=== PATIENT | male | born 1975 | race Two or more races ===

== ENCOUNTER 2024-05-20 22:00 | Inpatient (IN) | payer MEDICAID, SELFPAY ==
[2024-05-20 23:14] VITALS: PULSE 92; RESP 20; TEMP 36.7; O2SAT 95
[2024-05-20 23:20] VITALS: BMI 39.6
[2024-05-20 23:28] VITALS: BP 235/142
--- NOTE | 2024-05-20 23:33 | EKG_ITS ---
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1975 Requested By: Jose Angel Lebron Order Number: [id number] Reading MD: Jose Angel Lebron Measurements Intervals [place] Rate: 86 P: 17 [place]: 158 QRS: -40 QRSD: 100 T: 110 QT: 381 QTc: 457 Interpretive Statements SINUS RHYTHM LEFT AXIS DEVIATION [QRS AXIS < -30] LEFT VENTRICULAR HYPERTROPHY AND ST-T CHANGE [VOLTAGE CRITERIA PLUS ST/T ABNORMALITY] POSSIBLE SEPTAL MYOCARDIAL INFARCTION , POSSIBLY ACUTE [30 ms Q WAVE IN V1/V2] ACUTE [place] Compared to ECG 04/12/2019 23:42:48 Left-axis deviation now present Left ventricular hypertrophy now present ST (T wave) deviation now present Myocardial infarct finding now present T-wave abnormality no longer present /store/S0/[id number]
--- NOTE | 2024-05-20 23:43 | XR_ITS ---
Examination: PA chest single view TECHNIQUE: Upright PA chest single view Exam date and time: May 20, 2024, 11:51 PM Comparison June 03, 2018 INDICATIONS: Shortness of breath today, hypertension FINDINGS: [id number] CHF Mild enlargement cardiac contour. Prominent vascular congestion. Perihilar basilar edema. IMPRESSION: [id number] CHF
--- NOTE | 2024-05-20 23:43 | EDRME_ITS ---
Rapid Medical Screening Exam [facility] Arrival date/time: 05/20/24 22:00 48M with history of HTN and DM (does not take any of his meds) presents to ED with SOB starting around 6 PM today. Patient also has had a slight cough. Chief Complaint: Shortness of Breath/Dyspnea Vital signs: Vital Signs Temperature 98.0 F 05/20/24 23:14 Pulse Rate 92 05/20/24 23:14 Respiratory Rate 20 05/20/24 23:14 Pulse Oximetry (%) 95 05/20/24 23:14 Oxygen Delivery Method Room Air 05/20/24 23:14
--- NOTE | 2024-05-20 23:49 | PD.EDSOB ---
ED SOB =RME/HPI General Chief Complaint: Shortness of Breath/Dyspnea Stated Complaint: SOB AND COUGH Time Seen by Provider: 05/21/24 00:02 Arrival date/time: 05/20/24 22:00 RME / HPI RME / HPI Narrative: 05/20/24 22:00 48M with history of HTN and DM (does not take any of his meds) presents to ED with SOB starting around 6 PM today. Patient also has had a slight cough. -------- Dr. Gupta?s Main ED Evaluation: 48yo male with a history of HTN presents to the ED for a chief complaint of shortness of breath. Patient states he started having shortness of breath after he got home from work at 1800. He states his shortness of breath resolved after he arrived here to the ED. He denies any chest pain, extremity pain, fever, chills or any other associated symptoms. Patient has not taken his medications for over a year. No known allergies. Related Data Home Medications ?Medication ?Instructions ?Recorded ?Confirmed losartan 100 mg tablet 100 mg PO DAILY 06/05/18 06/05/18 Previous Rx's ?Medication ?Instructions ?Recorded amlodipine 5 mg tablet 10 mg (2 x 5 mg) PO QDAY #30 tabs 06/08/18 amoxicillin 875 mg-potassium 1 tab PO BID #14 tabs 06/08/18 clavulanate 125 mg tablet (Augmentin) aspirin 81 mg tablet,delayed 81 mg PO QDAY #30 tabs 06/08/18 release (Adult Low Dose Aspirin) atorvastatin 10 mg tablet 10 mg PO HS #30 tabs 06/08/18 hydrochlorothiazide 12.5 mg capsule 25 mg (2 x 12.5 mg) PO QDAY #30 06/08/18 caps losartan 25 mg tablet 100 mg (4 x 25 mg) PO QDAY #30 tabs 06/08/18 metformin 500 mg tablet 500 mg PO BIDAC #60 tabs 06/08/18 metoprolol tartrate 25 mg tablet 50 mg (2 x 25 mg) PO BID #60 tabs 06/08/18 Allergies Allergy/AdvReac Type Severity Reaction Status Date / Time No Known Allergies Allergy Verified 05/20/24 22:00 Review of Systems Review of Systems Systems Reviewed: All systems reviewed, normal except as documented Past Medical History Past Medical History NEUROLOGIC: Negative Seizures CARDIAC: Positive Cardiac Disorders and Hypertension; Negative Congestive Heart Failure RESPIRATORY: Negative Chronic Obstructive Pulmonary Disease (COPD) GENITOURINARY: Negative Renal Disease ENDOCRINE: Negative Diabetes Mellitus Type 1 or Diabetes Mellitus Type 2 OTHER HISTORY: Negative Blood Transfusions, Blood Transfusion Reaction or Anesthesia Reactions Family History FAMILY HISTORY: Positive Family Cardiac Disorders Social History SMOKING STATUS: Never smoker SUBSTANCE USE: does not use ED Exam Narrative Physical exam: GENERAL APPEARANCE: alert and oriented x 4, well-developed, well-nourished, no acute distress VITALS: All vitals were reviewed and the pulse ox is 95% on room air, which is normal according to my interpretation. HEENT: Normocephalic, atraumatic; pupils equal, round, reactive to light; EOMI; mucous membranes pink, moist; oropharynx clear NECK: Supple LUNGS: Coarse breath sounds bilaterally; no wheezes, no rales, no rhonchi HEART: Regular rate, regular rhythm; normal S1, S2; no murmurs ABDOMEN: non distended; normal BS; soft, no tenderness, no guarding, no rebound; no masses, no organomegaly, no hernia BACK: no CVA tenderness EXTREMITIES: atraumatic; 2+ pitting edema bilaterally up to his knees NEUROLOGIC: awake; alert and oriented x4; cranial nerves II-XII grossly intact; no focal sensory or motor deficits PSYCHIATRIC: appropriate mood and affect SKIN: warm, dry, normal color; no rashes Course Course Course Narrative: CXR is ordered for determining the etiology of shortness of breath. Quality Measures none Orders Category Date Time Status Bedside COVID-19 Antigen Test NOW Care 05/20/24 23:15 Active Bedside Influenza A&B Antigen Test NOW Care 05/20/24 23:15 Completed Waterproofer Q4H START 00 Care 05/20/24 23:45 Active EKG (ED ONLY) *Do not use* NOW Care 05/20/24 23:33 Completed EKG (ED ONLY) *Do not use* NOW Care 05/21/24 02:31 Completed Insert IV NOW Care 05/20/24 23:43 Active EKG (ED Only) Stat Exams 05/20/24 23:33 Draft EKG (ED Only) Stat Exams 05/21/24 02:31 Draft XR chest 1V portable Stat Exams 05/20/24 23:43 Completed B-Type Natriuretic Peptide Stat Lab 05/20/24 23:43 Completed CBC Stat Lab 05/20/24 23:43 Completed Comprehensive Metabolic Panel Stat Lab 05/20/24 23:43 Completed Drug Screen,Urine Stat Lab 05/21/24 00:32 Completed Magnesium Stat Lab 05/20/24 23:43 Completed Partial Thromboplastin Time Stat Lab 05/20/24 23:43 Completed Prothrombin Time with INR Stat Lab 05/20/24 23:43 Completed Troponin I Stat Lab 05/20/24 23:43 Completed Troponin I Stat Lab 05/21/24 02:32 Completed Aspirin Med 05/20/24 23:43 Discontinued 325 mg PO X1 ONE Aspirin Med 05/21/24 02:30 Discontinued 325 mg PO X1 ONE Furosemide Inj [Lasix Inj] Med 05/21/24 02:30 Discontinued 80 mg IVP X1 ONE Labetalol IV [Trandate IV] Med 05/21/24 00:03 Discontinued 20 mg IVP X1 ONE Nicardipine/Ns 20Mg Ivpb [Cardene Ivpb] Med 05/21/24 02:18 Active 20 mg in 200 ml IV 5 mg/hr Nitroglycerin [Nitrostat 1/150] Med 05/20/24 23:43 Active 0.4 mg SL Q5MIN PRN cefTRIAXone/D5w 1gm IV premix [Rocephin/D5w 1gm IV Med 05/21/24 03:57 Active premix] 1 gm in 50 ml IV X1 Vital Signs Vital signs: Vital Signs Temperature 98.0 F 05/20/24 23:14 Pulse Rate 92 05/20/24 23:14 Respiratory Rate 20 05/20/24 23:14 Pulse Oximetry (%) 95 05/20/24 23:14 Oxygen Delivery Method Room Air 05/20/24 23:14 Shortness of Breath / Dyspnea MDM Narrative MDM Narrative:: Scribe Attestation: 05/21/24 - Carol, Aliza Escobar am scribing for and in the presence of Dr. Gupta. Heart alert initiated at 2340. 2348: Spoke with Dr. Go from [facility], who reviewed the patient's EKG and does not feel the patient is having a STEMI. The patient does not need to be transferred at this 0225: Patient's blood pressure is 226/136. Nicardipine drip ordered. 0358: BP is 165/82 after Nicardipine drip was started (initially 5mg/hour and to increase in increments of 2.5mg, up to 15mg). Will consult an admission to the hospitalist. 0403: Discussed case with Dr. Kim from Hospitalist service regarding admission. Discussed patients ED course, exam findings, labs, and radiology results. The Hospitalist agrees to accept the patient for admission. Patient data External records reviewed:: [facility] previous records (Per chart review, patient has no relevant previous ED visits.) Clinical information provided by:: patient Social determinants that could affect healthcare access:: none Patient has the following chronic illnesses:: HTN How is presenting disease/condition affected by chronic disease/condition?: exacerbated by Evaluation data The following diagnostics were reviewed and interpreted by me:: lab results, radiology exam(s) and EKG tracing(s) Lab and/or radiology exams considered but not ordered:: none Interpretation Summary: Bedside COVID and Influenza are negative, WBC count is 11.1, PT and INR are normal, PTT is normal, Creatinine is elevated at 3.8, Glucose is 155, troponin is elevated 0.110, repeat troponin is 0.108, BNP is 803, UDS is negative, according to my interpretation. CXR shows cardiomegaly, cephalization, possible right lower lobe infiltrate, no bony abnormalities, according to my interpretation. EKG done at 2333, NSR, rate of 86, left axis deviation, no ectopy, QTc: 424, QRS: 100, LVH, no acute ischemia, according to my interpretation. Repeat EKG done at 0313, NSR, rate of 82, left axis deviation, LVH, Q waves in V1 and V2, ST depressions in lead I and avL, no STEMI, QTc: 444, according to my interpretation. Medications / Prescriptions Medications or Prescriptions considered but not ordered:: none Medication administrations:: Medication Administration History Nicardipine/Sodium Chloride (Cardene Ivpb) 20 mg in 200 mls @ 50 mls/hr IV .Q4H PRN; Protocol PRN Reason: PER PROTOCOL Stop: 06/20/24 02:17 Last Titration: 05/21/24 04:05 Dose: 12 mg/hr, 120 mls/hr Documented By: Titration: 05/21/24 04:00 Dose: 9.5 mg/hr, 95 mls/hr Documented By: Titration: 05/21/24 03:55 Dose: 7 mg/hr, 70 mls/hr Documented By: Titration: 05/21/24 03:50 Dose: 5.5 mg/hr, 55 mls/hr Documented By: Titration: 05/21/24 03:45 Dose: 3 mg/hr, 30 mls/hr Documented By: Titration: 05/21/24 03:40 Dose: 15 mg/hr, 150 mls/hr Documented By: Titration: 05/21/24 03:35 Dose: 15 mg/hr, 150 mls/hr Documented By: Titration: 05/21/24 03:30 Dose: 15 mg/hr, 150 mls/hr Documented By: Titration: 05/21/24 03:25 Dose: 15 mg/hr, 150 mls/hr Documented By: Titration: 05/21/24 03:20 Dose: 15 mg/hr, 150 mls/hr Documented By: Titration: 05/21/24 03:15 Dose: 15 mg/hr, 150 mls/hr Documented By: Titration: 05/21/24 03:10 Dose: 15 mg/hr, 150 mls/hr Documented By: Titration: 05/21/24 03:05 Dose: 15 mg/hr, 150 mls/hr Documented By: Titration: 05/21/24 03:00 Dose: 15 mg/hr, 150 mls/hr Documented By: Titration: 05/21/24 02:55 Dose: 15 mg/hr, 150 mls/hr Documented By: Titration: 05/21/24 02:50 Dose: 12.5 mg/hr, 125 mls/hr Documented By: Titration: 05/21/24 02:45 Dose: 10 mg/hr, 100 mls/hr Documented By: Titration: 05/21/24 02:40 Dose: 7.5 mg/hr, 75 mls/hr Documented By: Admin: 05/21/24 02:35 Dose: 5 mg/hr, 50 mls/hr Documented By: EF Ceftriaxone Sodium/Dextrose (Rocephin/D5w 1gm Iv Premix) 1 gm in 50 mls @ 100 mls/hr IV X1 ONE Stop: 05/21/24 04:26 Nitroglycerin (Nitroglycerin 0.4 Mg Subl Btl #25) 0.4 mg SL Q5MIN PRN PRN Reason: CHEST PAIN Discontinued Medications Aspirin (Aspirin 325 Mg Tablet) 325 mg PO X1 ONE Stop: 05/20/24 23:44 Last Admin: 05/21/24 00:51 Dose: 325 mg Documented By: EF Aspirin (Aspirin 325 Mg Tablet) 325 mg PO X1 ONE Stop: 05/21/24 02:31 Last Admin: 05/21/24 03:40 Dose: Not Given Documented By: AC Non-Admin Reason: Cancelled by Provider Furosemide (Furosemide Inj 10 Mg/Ml 4ml Vial) 80 mg IVP X1 ONE Stop: 05/21/24 02:31 Last Admin: 05/21/24 02:38 Dose: 80 mg Documented By: EF Labetalol HCl (Labetalol Inj 5 Mg/Ml Vial 20 Ml) 20 mg IVP X1 ONE Stop: 05/21/24 00:04 Last Admin: 05/21/24 00:51 Dose: 20 mg Documented By: EF see above Consultations Consultation(s) initiated? (list below): Yes Diagnosis Shortness of Breath Differential Diagnosis: other (STEMI, NSTEMI, CHF exacerbation, heart failure, renal failure) Most likely diagnosis given after review of the tests above:: see clinical impression below Admission Indicated Admission indicated?: indicated Admission Request Was there a request for admission?: Yes Admission Attestation Admission request attestation: Discussed case with [] from Hospitalist service regarding admission. Discussed patients ED course, exam findings, labs, and radiology results. The Hospitalist [agrees,declines] to accept the patient for admission. Disposition Plan Disposition Plan: Admit Critical Care Time Critical Care Time Critical Care Time: Yes Total Critical Care Time (min.): 75 Attestation: The high probability of sudden, clinically significant deterioration in the patient?s condition required the highest level of my preparedness to intervene urgently. The services I provided to this patient were to treat and/or prevent clinically significant deterioration. Services included the following: chart data review, reviewing nursing notes and/or old charts, documentation time, talent acquisition consultant collaboration regarding findings and treatment options, medication orders and management, direct patient care, vital sign assessments and ordering, interpreting and reviewing diagnostic studies and lab tests. Aggregate critical care time includes only time during which I was engaged in work directly related to the patient?s care, as described above, whether at bedside or elsewhere in the Emergency Department. It did not include time spent performing other reported procedures or the services of residents, students, nurses or physician assistants. Discharge Plan Prescriptions/Referrals Prescriptions/Med Rec: No Action losartan 100 mg Tablet 100 mg PO DAILY metformin 500 mg Tablet 500 mg PO BIDAC Qty: 60 0RF atorvastatin 10 mg Tablet 10 mg PO HS Qty: 30 0RF amlodipine 5 mg Tablet 10 mg PO QDAY Qty: 30 0RF losartan 25 mg Tablet 100 mg PO QDAY Qty: 30 0RF hydrochlorothiazide 12.5 mg Capsule 25 mg PO QDAY Qty: 30 0RF metoprolol tartrate 25 mg Tablet 50 mg PO BID Qty: 60 0RF aspirin [Adult Low Dose Aspirin] 81 mg tablet,delayed release (DR/EC) 81 mg PO QDAY Qty: 30 0RF amoxicillin-pot clavulanate [Augmentin] 875-125 mg tablet 1 tab PO BID Qty: 14 0RF Referrals: No Primary/Family,Physician [Primary Care Provider] - In 1 week Problem List Clinical Impression: Acute renal failure, Non-ST elevation ID (NSTEMI), CHF exacerbation, Pneumonia, Hypertensive crisis Patient/Caregiver Discharge Instructions Print Language: Malaysian
[2024-05-21] VITALS (90 sets, daily range): BP systolic 132–239; BP diastolic 79–150; PULSE 61–88; RESP 6–98; TEMP 36.8–36.9; O2SAT 92–99; BMI 38.5
[2024-05-21 00:26] LABS: Basophils # (Auto) 0.1 Thou/mm3 (0.0-0.2); Basophils % (Auto) 1 % (0-2.5); Eosinophils # (Auto) 0.2 Thou/mm3 (0.0-0.5); Eosinophils % (Auto) 2 % (0-10); Hematocrit 32.9 % (41.0-53.0); Hemoglobin 11.6 g/dL (13.5-16.0); Immature Granulocytes % (Auto) 0 % (0-0); Immature Granulocytes Auto 0.03 Thou/mm3 (0.00-0.00); Lymphocytes # (Auto) 1.4 Thou/mm3 (1.0-4.8); Lymphocytes % (Auto) 12 % (10-50); Mean Corpuscular HGB Conc 35.3 g/dl (31.0-37.0); Mean Corpuscular Hemoglobin 30.4 pg (25.0-35.0); Mean Corpuscular Volume 86 fL (80-100); Monocytes # (Auto) 0.5 Thou/mm3 (0.0-0.8); Monocytes % (Auto) 5 % (0-12); Neutrophils # (Auto) 8.9 Thou/mm3 (1.8-7.7); Neutrophils % (Auto) 80 % (37-80); Nucleated Red Blood Cell % 0 /100 WBC (0); Platelet Count 164 Thou/mm3 (140-440); RDW Standard Deviation 43.4 fL (35.1-43.9); Red Blood Count 3.82 Miln/mm3 (4.50-5.90); White Blood Count 11.1 Thou/mm3 (3.8-10.6)
[2024-05-21 00:50] LABS: Alanine Aminotransferase 11 U/L (10-49); Albumin, Serum 4.1 gm/dL (3.5-5.0); Albumin/Globulin Ratio 1.1 (1.2-2.2); Alkaline Phosphatase 101 U/L (46-116); Anion Gap 10 (7-16); Aspartate Amino Transferase 17 U/L (0-34); B-Type Natriuretic Peptide 803 pg/mL (0-100); BUN/Creatinine Ratio 11 Ratio (12-20); Bilirubin,Total 0.7 mg/dL (0.3-1.2); Blood Urea Nitrogen 43 mg/dL (9-23); Calcium 8.8 mg/dL (8.3-10.6); Calcium (Corrected) 8.8 mg/dL (8.5-10.1); Carbon Dioxide 24.2 mMol/L (20.0-31.0); Chloride 104 mMol/L (98-107); Creatinine (Component) 3.8 mg/dL (0.6-1.3); Estimated Creatinine Clearance 25.8 mL/min (>60); Globulin 3.6 gm/dL (2.3-3.5); Glucose 155 mg/dL (74-106); Magnesium 2.1 mg/dL (1.6-2.6); Osmolality,Calculated 289 (275-295); Potassium 3.6 mMol/L (3.4-5.1); Sodium 138 mMol/L (136-145); Total Protein 7.7 gm/dL (5.7-8.2); eGFR 19 See Note
[2024-05-21] MEDS: Aspirin 325 MG TABLET PO (00:51)
[2024-05-21] MEDS: LABETALOL INJ 5 MG/ML VIAL 20 ML 20 MG IVP (00:51)
[2024-05-21 00:52] LABS: Amphetamine/Methamp Scrn,U Negative (Negative); Barbiturate Screen,Urine Negative (Negative); Benzodiazepines Screen,Urine Negative (Negative); Benzoylecgonine Screen, Ur Negative (Negative); Fentanyl Screen,Urine Negative (Negative); Opiate Screen,Urine Negative (Negative); THC Screen,Urine Negative (Negative)
[2024-05-21 00:57] LABS: Partial Thromboplastin Time 27.6 Seconds (22.0-36.0); Prothrombin Time 10.9 Seconds (9.0-12.2)
--- NOTE | 2024-05-21 02:31 | EKG_ITS ---
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
[2024-05-21] MEDS: NICARDIPINE/NS 20MG IVPB 20 MG/200 ML BAG 50 MG IV (02:35)
[2024-05-21] MEDS: FUROSEMIDE INJ 10 MG/ML 4ML VIAL 80 MG IVP (02:38)
[2024-05-21 03:27] LABS: Troponin I 0.108 ng/mL (0.0-0.045)
[2024-05-21] MEDS: NICARDIPINE/NS 20MG IVPB 20 MG/200 ML BAG 150 MG IV (04:15)
--- NOTE | 2024-05-21 04:49 | PC.NURSE ---
PER DR BLOOM NICARDIPINE GOAL LESS THAN 180 SYSTOLIC
--- NOTE | 2024-05-21 04:59 | ECHO_ITS ---
Transthoracic Echo Report Ht (in): 64 Wt (lb): 231 Exam Location: Echo Lab Status: Emergency Honey Producer: YESSENIA Flores^^^^ Indications: Procedure Performed: BP: 164 / 103 HR: 82 Technical Quality: Fair MEASUREMENTS (Male / Female) Normal Values 2D ECHO LV Diastolic Diameter PLAX 4.5 cm 4.2 - 5.9 / 3.9 - 5.3 cm LV Systolic Diameter PLAX 3.1 cm IVS Diastolic Thickness 1.7 cm 0.6 - 1.0 / 0.6 - 0.9 cm LVPW Diastolic Thickness 1.5 cm 0.6 - 1.0 / 0.6 - 0.9 cm LV Relative Wall Thickness 0.7 LVOT Diameter 1.9 cm Aortic Root Diameter 4.1 cm LA Systolic Diameter LX 4.2 cm 3.0 - 4.0 / 2.7 - 3.8 cm LA Volume Index 70.6 cm?/m? 16 - 28 cm?/m? Ascending Aorta Diameter 3.7 cm DOPPLER AV Peak Velocity 175.3 cm/s AV Peak Gradient 12.3 mmHg AV Mean Gradient 7.5 mmHg AV Velocity Time Integral 32.5 cm LVOT Peak Velocity 126.0 cm/s LVOT Peak Gradient 6.4 mmHg LVOT Velocity Time Integral 29.8 cm LVOT Cardiac Index 3109.6 cm?/min?m? AV Area Cont Eq vti 2.6 cm? AV Area Cont Eq pk 2.0 cm? MV Peak Velocity 151.0 cm/s MV Peak Gradient 9.1 mmHg MV Mean Velocity 98.0 cm/s MV Mean Gradient 4.0 mmHg MV Area PHT 3.6 cm? MR Peak Velocity 432.5 cm/s MR Peak Gradient 74.8 mmHg Mitral E Point Velocity 115.0 cm/s Mitral A Point Velocity 54.9 cm/s Mitral E to A Ratio 2.1 LV E' Lateral Velocity 4.6 cm/s Mitral E to LV E' Lateral Ratio 24.8 LV E' Septal Velocity 6.5 cm/s Mitral E to LV E' Septal Ratio 17.7 TR Peak Velocity 267.3 cm/s TR Peak Gradient 28.6 mmHg PV Peak Velocity 118.0 cm/s PV Peak Gradient 5.6 mmHg RVOT Peak Velocity 61.3 cm/s FINDINGS Left Ventricle There is moderate concentric left ventricular hypertrophy. The left ventricular ejection fraction is normal, estimated at 60-65%. There is grade II diastolic dysfunction of the left ventricle (pseudonormal filling pattern). Right Ventricle The right ventricle is normal in size and systolic function. The estimated right ventricular systolic pressure, 32 mmHg. Left Atrium Severely increased left atrial volume 70.6 mL/m?. Right Atrium The right atrial cavity size is mildly increased. Atrial Septum The interatrial septum appears normal with no evidence of a shunt. Aorta The aorta is normal by two-dimensional, color flow and Doppler interrogation. Mitral Valve Mild mitral regurgitation. Mild mitral annular calcification. Aortic Valve Aortic valve sclerosis. Tricuspid Valve There is mild tricuspid valve regurgitation. Pulmonic Valve Trivial pulmonic valve regurgitation. Vessels The pulmonary artery appears normal. The inferior vena cava pulmonary and hepatic veins appear normal. Pericardium The pericardium is normal by two-dimensional imaging. There is no significant pericardial effusion. CONCLUSIONS Indication: CHF Normal zie and function with estimated at 60-65%. Moderate to severe concentric LVH. Diastolic dysfucntion stage I. Normal RV size and function. Estimated RVSP mildly elevated at 35-40 mm of 30. Severe LA dilation. Mild RA dilatation. Mild TR and mild MR. Mild mitral and mild aortic without stenosis. Nile Sutton (Electronically Signed) Final Date: 21 May 2024 21:35
--- NOTE | 2024-05-21 05:06 | PD.HHHP ---
Documentation for date of: 05/21/24 HPI - Hospitalist History of Present Illness History of present illness: Patient is a 48 years old male with past medical history of hypertension and diabetes who presented to the ED with complaint of shortness of breath. Patient was in his usual state of health until yesterday evening when he started having difficulty breathing and decided to visit the ED. Patient denies chest pain, cough, fever, chills. He does complain of orthopnea. Also states that he feels protrusion on his abdomen. Patient has not taken his medicine for hypertension for a long time, also has not seen a doctor for more than a year. Denies any sick contact. In the ED, he was found to have blood pressure of systolic up to 239 and diastolic up to 150. Rest of the vitals were within normal limits and he is saturating well on room air. Lab results are significant for WBC of 11.1, BUN/creatinine of 43/3.8, glucose 155, troponin 0.110 and BNP 803. Chest x-ray was done, which shows vascular congestion. EKG was done which shows mild elevation in ST on V3 and V4. Cardiology was contacted at [facility] by ED, who did not feel the patient is having an NSTEMI. Patient was started on labetalol 20 mg IV push in the ED without improvement in blood pressure. He was then started on nicardipine drip in the ED. Patient also received a dose of aspirin 325 and Lasix 80 mg IV. Past medical history: Hypertension, diabetes Past surgical history: None Social history: Does not smoke, does not use alcohol or illicit drugs. Review of Systems Review of Systems Systems Reviewed: All systems reviewed, normal except as documented Meds Home Medications and Allergies Home Medications ?Medication ?Instructions ?Recorded ?Confirmed ?Type losartan 100 mg tablet 100 mg PO DAILY 06/05/18 06/05/18 History Allergies Allergy/AdvReac Type Severity Reaction Status Date / Time No Known Allergies Allergy Verified 05/20/24 22:00 Exam Vital Signs Temp Pulse Resp BP Pulse Ox O2 Del Method 98.4 F 81 16 163/80 H 98 Room Air 05/21/24 02:15 05/21/24 04:15 05/21/24 02:15 05/21/24 04:15 05/21/24 02:15 05/21/24 02:15 Narrative GEN.: Alert and awake, comfortable, saturating well on room air HEENT: Atraumatic normocephalic, pupils equal and round, neck supple. CHEST: Bilateral crackles, no wheezing HEART: S1 and S2 sound regular, no murmur rub or gallop sound. ABDOMEN: Soft, distended, nontender, hard to appreciate ?bulge while bearing down near umbilicus EXTREMITY: 1+ bilateral pitting edema SKIN: No skin rash. NEUROLOGIC: Alert and oriented, answering questions appropriately and following commands, no focal neurological deficit, cranial nerves grossly intact Results - Hospitalist Labs Diagrams: 05/21/24 00:06 05/21/24 00:06 Labs: Short CBC 05/21/24 Range/Units 00:06 WBC 11.1 H (3.8-10.6) Thou/mm3 Hgb 11.6 L (13.5-16.0) g/dL Hct 32.9 L (41.0-53.0) % Plt Count 164 (140-440) Thou/mm3 BMP 05/21/24 00:06 Sodium 138 Potassium 3.6 Chloride 104 Carbon Dioxide 24.2 BUN 43 H Creatinine 3.8 H Glucose 155 H Calcium 8.8 Cardiac Enzymes 05/21/24 05/21/24 Range/Units 00:06 02:32 Troponin I 0.110 H* 0.108 H* (0.0-0.045) ng/mL Liver Function 05/21/24 Range/Units 00:06 Total Bilirubin 0.7 (0.3-1.2) mg/dL AST 17 (0-34) U/L ALT 11 (10-49) U/L Alkaline Phosphatase 101 (46-116) U/L Albumin 4.1 (3.5-5.0) gm/dL Assessment & Plan -Hospitalist Additional Assessment Patient is a 48 years old male with past medical history of diabetes and hypertension who presented to the ED with complaint of shortness of breath. Patient was found to have very high blood pressure, elevated troponin, DIANA, concerning for hypertensive emergency. Blood pressure was hard to control in the ED and patient was started on nicardipine drip. Will admit the patient in ICU for further management. INSTRUCTOR PHYSICAL EDUCATION No active problem CVS #Hypertensive emergency #CHF exacerbation #History of hypertension Patient has history of hypertension, not currently on medication Presented with very high blood pressure Has a BNP of 803 Received labetalol 20 mg IV in the ED Started on nicardipine drip We will monitor his blood pressure closely with goal of(180/105) Also started on Lasix 40 mg IV twice daily, patient received one-time dose of 80 mg IV in the ED Fluid restriction, low-sodium diet, strict ins and out, daily weight We will obtain echocardiography #Elevated troponin Likely type II in setting of hypertensive emergency Troponin peaked at 0.110 EKG did show mild elevation in AST but troponin has peaked and patient does not have chest pain Respi #CHF exacerbation Chest x-ray shows vascular congestion Patient on diuretics, saturating well on room air Nephrology #DIANA on CKD Patient's BUN/creatinine currently is 43/3.8, baseline appears to be around 1.2-1.3 Likely secondary to volume overload, severe hypertension, may have progression of CKD Avoid nephrotoxic drugs, monitor closely Endocrine #Diabetes mellitus Patient has glucose of 155 Started on insulin sliding scale We will obtain hemoglobin A1c Hematology #Leukocytosis Patient has mild leukocytosis of 11.1, likely reactive #Normocytic anemia Likely secondary to CKD, no evidence of active bleeding We will continue to monitor closely Diet: Cardiac diet, low-salt, low consistent carb CODE STATUS: Full code DVT prophylaxis: Lovenox SC Disposition: Admitted to ICU for hypertensive emergency requiring IV nicardipine drip Total critical care time spent on history and physical, lab reviews and plan: 40 minutes Pat Kim MD Quality Measures Quality Measures none
[2024-05-21 05:28] LABS: Basophils # (Auto) 0.1 Thou/mm3 (0.0-0.2); Basophils % (Auto) 1 % (0-2.5); Eosinophils # (Auto) 0.1 Thou/mm3 (0.0-0.5); Eosinophils % (Auto) 1 % (0-10); Hematocrit 32.3 % (41.0-53.0); Hemoglobin 11.5 g/dL (13.5-16.0); Immature Granulocytes % (Auto) 0 % (0-0); Immature Granulocytes Auto 0.03 Thou/mm3 (0.00-0.00); Lymphocytes # (Auto) 1.3 Thou/mm3 (1.0-4.8); Lymphocytes % (Auto) 13 % (10-50); Mean Corpuscular HGB Conc 35.6 g/dl (31.0-37.0); Mean Corpuscular Hemoglobin 30.5 pg (25.0-35.0); Mean Corpuscular Volume 86 fL (80-100); Monocytes # (Auto) 0.5 Thou/mm3 (0.0-0.8); Monocytes % (Auto) 5 % (0-12); Neutrophils # (Auto) 8.5 Thou/mm3 (1.8-7.7); Neutrophils % (Auto) 81 % (37-80); Nucleated Red Blood Cell % 0 /100 WBC (0); Platelet Count 163 Thou/mm3 (140-440); RDW Standard Deviation 43.6 fL (35.1-43.9); Red Blood Count 3.77 Miln/mm3 (4.50-5.90); White Blood Count 10.5 Thou/mm3 (3.8-10.6)
[2024-05-21 05:42] LABS: Glucose Estimated Average 131 mg/dL (80-131); Hemoglobin A1C 6.2 % Hgb (4.8-6.0)
[2024-05-21] MEDS: cefTRIAXone/D5w 1gm IV premix 1 GM/50 ML BAG IV (05:48)
[2024-05-21 05:54] LABS: Alanine Aminotransferase 10 U/L (10-49); Albumin, Serum 4.1 gm/dL (3.5-5.0); Albumin/Globulin Ratio 1.2 (1.2-2.2); Alkaline Phosphatase 97 U/L (46-116); Anion Gap 11 (7-16); Aspartate Amino Transferase 14 U/L (0-34); BUN/Creatinine Ratio 12 Ratio (12-20); Bilirubin,Total 0.7 mg/dL (0.3-1.2); Blood Urea Nitrogen 44 mg/dL (9-23); Calcium 8.8 mg/dL (8.3-10.6); Calcium (Corrected) 8.8 mg/dL (8.5-10.1); Carbon Dioxide 23.9 mMol/L (20.0-31.0); Chloride 103 mMol/L (98-107); Creatinine (Component) 3.8 mg/dL (0.6-1.3); Estimated Creatinine Clearance 25.8 mL/min (>60); Globulin 3.5 gm/dL (2.3-3.5); Glucose 191 mg/dL (74-106); Osmolality,Calculated 291 (275-295); Potassium 3.1 mMol/L (3.4-5.1); Procalcitonin 0.25 ng/ml (0.0-0.49); Sodium 138 mMol/L (136-145); Total Protein 7.6 gm/dL (5.7-8.2); eGFR 19 See Note
[2024-05-21] MEDS: NICARDIPINE/NS 20MG IVPB 20 MG/200 ML BAG 30 MG IV (06:28)
[2024-05-21 07:32] LABS: Cardiac Risk Estimate 5.4 RATIO (4.0-6.7); Cholesterol 233 mg/dL (132-200); HDL Cholesterol 43 mg/dL (40-60); LDL Cholesterol,Calculated 169 mg/dL (0-130); Triglycerides 107 mg/dL (30-150)
--- NOTE | 2024-05-21 08:02 | XR_ITS ---
Examination: Abdomen sonogram, Limited Date and time of exam: May 21, 2024 0823 hours INDICATIONS: Abdominal pain and distention this week Technique: Real-time reyes scale transabdominal sonographic images of the upper abdomen obtained. Findings: No cystic or solid mass noted No hernia defect IMPRESSION: Negative examination
--- NOTE | 2024-05-21 08:04 | ESPR_ITS ---
Documentation for date of: 05/21/24 Subjective Subjective Interval history: No acute events overnight. Patient is comfortable in bed with no complaints Exam Vital Signs Temp Pulse Resp BP Pulse Ox O2 Del Method 98.5 F 78 10 L 171/92 H 98 Room Air 05/21/24 06:30 05/21/24 06:30 05/21/24 06:30 05/21/24 06:30 05/21/24 06:30 05/21/24 02:15 Narrative Exam GEN.: Alert and awake, comfortable, saturating well on room air HEENT: Atraumatic normocephalic, pupils equal and round, neck supple. CHEST: Bilateral crackles, no wheezing HEART: S1 and S2 sound regular, no murmur rub or gallop sound. ABDOMEN: Soft, distended, mild tenderness to palpation periumbillical EXTREMITY: 1+ bilateral pitting edema SKIN: No skin rash. NEUROLOGIC: Alert and oriented, answering questions appropriately and following commands, no focal neurological deficit, cranial nerves grossly intact Objective Labs 05/25/24 05:18 05/25/24 05:18 Labs: Laboratory Results - last 24 hr 05/21/24 05/21/24 05/21/24 00:06 00:32 02:32 WBC 11.1 H RBC 3.82 L Hgb 11.6 L Hct 32.9 L MCV 86 MCH 30.4 MCHC 35.3 RDW Std Deviation 43.4 Plt Count 164 Neut % (Auto) 80 Lymph % (Auto) 12 [place] % (Auto) 5 Eos % (Auto) 2 Baso % (Auto) 1 Neut # (Auto) 8.9 H Lymph # (Auto) 1.4 [place] # (Auto) 0.5 Eos # (Auto) 0.2 Baso # (Auto) 0.1 Immature Gran # (Auto) 0.03 H Absolute Nucleated RBC 0.00 Immature Gran % 0 Nucleated RBC % 0 PT 10.9 INR 1.0 APTT 27.6 Sodium 138 Potassium 3.6 Chloride 104 Carbon Dioxide 24.2 Anion Gap 10 BUN 43 H Creatinine 3.8 H Estim Creat Clear Calc 25.8 L eGFR 19 L BUN/Creatinine Ratio 11 L Glucose [address] Glu mg/dL Hemoglobin A1c Calculated Osmolality 289 Calcium 8.8 Corrected Calcium 8.8 Magnesium 2.1 Total Bilirubin 0.7 AST 17 ALT 11 Alkaline Phosphatase 101 Troponin I 0.110 H* 0.108 H* B-Natriuretic Peptide 803 H* Total Protein 7.7 Albumin 4.1 Globulin 3.6 H Albumin/Globulin Ratio 1.1 L Triglycerides Cholesterol LDL Cholesterol, Calc HDL Cholesterol Cholesterol/HDL Ratio Procalcitonin Urine Opiates Screen Negative Urine Fentanyl Screen Negative Ur Barbiturates Screen Negative U Amphetamin/Meth Scrn Negative U Benzodiazepines Scrn Negative U Cocaine Metab Screen Negative U Marijuana (THC) Screen Negative 05/21/24 05:20 WBC 10.5 RBC 3.77 L Hgb 11.5 L Hct 32.3 L MCV 86 MCH 30.5 MCHC 35.6 RDW Std Deviation 43.6 Plt Count 163 Neut % (Auto) 81 H Lymph % (Auto) 13 [place] % (Auto) 5 Eos % (Auto) 1 Baso % (Auto) 1 Neut # (Auto) 8.5 H Lymph # (Auto) 1.3 [place] # (Auto) 0.5 Eos # (Auto) 0.1 Baso # (Auto) 0.1 Immature Gran # (Auto) 0.03 H Absolute Nucleated RBC 0.00 Immature Gran % 0 Nucleated RBC % 0 PT INR APTT Sodium 138 Potassium 3.1 L D Chloride 103 Carbon Dioxide 23.9 Anion Gap 11 BUN 44 H Creatinine 3.8 H Estim Creat Clear Calc 25.8 L eGFR 19 L BUN/Creatinine Ratio [address]ucose [address] Glu mg/dL 131 Hemoglobin A1c 6.2 H Calculated Osmolality 291 Calcium 8.8 Corrected Calcium 8.8 Magnesium Total Bilirubin 0.7 AST 14 ALT 10 Alkaline Phosphatase 97 Troponin I B-Natriuretic Peptide Total Protein 7.6 Albumin 4.1 Globulin 3.5 Albumin/Globulin Ratio 1.2 Triglycerides 107 Cholesterol 233 H LDL Cholesterol, Calc 169 H HDL Cholesterol 43 Cholesterol/HDL Ratio 5.4 Procalcitonin 0.25 Urine Opiates Screen Urine Fentanyl Screen Ur Barbiturates Screen U Amphetamin/Meth Scrn U Benzodiazepines Scrn U Cocaine Metab Screen U Marijuana (THC) Screen Quality Measures Quality Measures VTE prophylaxis Assessment & Plan Assessment Current Active Medications: Generic Name Dose Route Start Last Admin Trade Name Freq PRN Reason Stop Dose Admin Acetaminophen 650 mg 05/21/24 04:51 Acetaminophen 325 Mg Tablet PO 06/20/24 04:50 Q4HR PRN PAIN SCALE 1-3 (mild Al Hydrox/Mg Hydrox/Simethicone 30 ml 05/21/24 04:51 Mg Hyd/Al Hyd/Mary (Maalox Reg) Susp 30 Ml Udc PO 06/20/24 04:50 Q4HR PRN Heartburn or Upset Stomach Dextrose 25 ml 05/21/24 05:00 Dextrose 50%-Water Inj 50 Ml Syringe IV 06/20/24 04:59 Q15MIN PRN BG 50-70 responsive npo pt Dextrose 50 ml 05/21/24 05:00 Dextrose 50%-Water Inj 50 Ml Syringe IV 06/20/24 04:59 Q15MIN PRN BG <50 OR BG <70 & pt unresponsive Furosemide 40 mg 05/21/24 21:00 Furosemide Inj 10 Mg/Ml 4ml Vial IVP 06/20/24 20:59 BID RAFIA Glucagon 1 mg 05/21/24 05:00 Glucagon Inj 1 Mg Vial IM Q15MIN PRN BG <70, and no IV access Heparin Sodium (Porcine) 5,000 unit 05/21/24 07:45 Heparin Sod Inj 5000 Unit/Ml Vial SC 06/04/24 07:44 Q8HR RAFIA Nicardipine/Sodium Chloride 20 mg in 200 mls @ 50 mls/hr 05/21/24 06:22 05/21/24 06:28 Cardene Ivpb IV 06/20/24 02:17 3 mg/hr .Q4H PRN 30 mls/hr PER PROTOCOL Administration Protocol 5 MG/HR Potassium Chloride 20 meq in 100 mls @ 50 mls/hr 05/21/24 06:50 Kcl Ivpb IV 05/21/24 08:49 X1 ONE Insulin Human Lispro 0 unit 05/21/24 07:30 Insulin Lispro (Admelog) 1 Unit/0.01 Ml Unit SC 06/20/24 07:29 AC RAFIA Protocol Magnesium Hydroxide 30 ml 05/21/24 04:51 Milk Of Magnesia Susp 30 Ml Udc PO 06/20/24 04:50 QDAY PRN CONSTIPATION Nitroglycerin 0.4 mg 05/20/24 23:43 Nitroglycerin 0.4 Mg Subl Btl #25 SL Q5MIN PRN CHEST PAIN Pharmacy Consult 1 each 05/21/24 09:00 Pharmacy Renal Dose Adjustment 1 Ea XX 06/20/24 08:59 QDAY PRN PROTOCOL Plan Patient is a 48 years old male with past medical history of diabetes and hypertension who presented to the ED with complaint of shortness of breath. Patient was found to have very high blood pressure, elevated troponin, DIANA, concerning for hypertensive emergency. Blood pressure was hard to control in the ED and patient was started on nicardipine drip and admitted to ICU. 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 #History of hypertension #Hypertensive emergency Patient has history of hypertension, noncompliant with medication Presented with BP 239/150 - Nicardipine gtt with goal <160 - Restart home amlodipine 10mg qd and metoprolol 50mg BID #CHF exacerbation BNP 803 We will monitor his blood pressure closely with goal of systolic <160 Lasix 40mg IV BID with good urine output (per patient, no output charted) Fluid restriction, low-sodium diet, strict ins and out, daily weight We will obtain echocardiography #Elevated troponin Likely type II in setting of hypertensive emergency Troponin peaked at 0.110, cardiology at [facility] consulted overnight for minor ST elevations in anterior leads, nonconcerning for myocardial infarction Respiratory #CHF exacerbation Chest x-ray shows vascular congestion, saturating well on RA -See above plan for exacerbation Nephrology #DIANA on CKD Patient's BUN/creatinine currently is 43/3.8, unknown baseline Will attempt to obtain outside records to see patient's baseline renal function Likely secondary to volume overload, severe hypertension, may have progression of CKD Avoid nephrotoxic drugs, monitor closely Endocrine #Diabetes mellitus Glucose within range Started on insulin sliding scale We will obtain hemoglobin A1c Patient not a good candidate for Metformin outpatient due to renal status Hematology #Leukocytosis Patient has mild leukocytosis of 11.5, likely reactive #Normocytic anemia Likely secondary to CKD, no evidence of active bleeding We will continue to monitor closely Diet: Cardiac diet, low-salt, low consistent carb CODE STATUS: Full code DVT prophylaxis: Lovenox SC, switched to Heparin SC in setting of DIANA Disposition: ICU for nicardipine gtt Attending Provider Attestation/Addendum Patient seen and examined with the above resident, Herb Gar DO. I agree with the findings, assessment, and plan of care as documented except for any differences below. Patient admitted with hypertensive emergency/ accelerated hypertension wit acute pulmonary edema. Resolved respiratory failure with no further oxygen requirement. Patient doing well now with resumption of home regimen. On discussion with the patient, he admits to not taking his medications regularly. 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 We did stop his metformin due to the renal dysfunction. If able to wean off the nicardipine gtt with PO medication resumption, will plan on transfer to medicine later today. Total critical care time: I personally spent 35 minutes for review of physiologic parameters, directing plan of care, and counseling patient at the bedside. This is exclusive of time spent teaching housestaff or performing any separate billable procedures. Patient continued to require critical care services for congestive heart failure, accelerated hypertension, and acute renal failure. He remained at significant risk of further morbidity and mortality warranting close monitoring and care only available in the ICU.
[2024-05-21] MEDS: POTASSIUM CHLORIDE 20 mEq TABCR 40 MEQ PO (08:28)
[2024-05-21] MEDS: HEPARIN SOD INJ 5000 UNIT/ML VIAL SC ×3 (08:28→21:33)
[2024-05-21] MEDS: INSULIN LISPRO (AdmeLOG) 1 UNIT/0.01 ML UNIT SC (08:32)
[2024-05-21] MEDS: POTASSIUM CHL 10 mEq IVPB 100 ML 100 MEQ IV ×2 (08:37→10:22)
[2024-05-21] MEDS: NICARDIPINE/NS 20MG IVPB 20 MG/200 ML BAG 55 MG IV (10:51)
[2024-05-21 11:42] LABS: Troponin I 0.149 ng/mL (0.0-0.045)
[2024-05-21] MEDS: amLODIPine BESYLATE 5 MG TABLET 10 MG PO (12:41)
[2024-05-21] MEDS: METOPROLOL TARTRATE 25 MG TABLET 50 MG PO ×2 (12:42→20:24)
--- NOTE | 2024-05-21 12:52 | PC.SS ---
POWER PLANT TECHNICIAN conducted phone contact with patient?s daughter, Muriel Turner; to conduct initial assessment and to discuss discharge planning on behalf of the patient.? Patient resides at home with spouse, Dorcas Matthews .? Patient is employed.? Patient does not utilize DME to assist with ambulation.? Patient does not utilize home oxygen.? Patient possesses ability to complete ADL?s independently.? Patient?s surrogate medical decision maker is spouse, Dorcas Matthews.? Patient utilizes [facility] ([facility]) for PCP services.? Patient possesses a history of diabetes.? Discharge plan is for the patient to return home at the time of discharge.? Patient?s family will provide transportation on behalf of the patient.? No further discharge needs identified by the patient?s family.? No further intervention required at this time, family welfare social work professor will be available to address any further concerns.? Next of Kin: Dorcas Matthews D/C Plan: Home
[2024-05-21] MEDS: NICARDIPINE/NS 20MG IVPB 20 MG/200 ML BAG 80 MG IV (13:50)
[2024-05-21] MEDS: NICARDIPINE/NS 20MG IVPB 20 MG/200 ML BAG 45 MG IV (16:09)
[2024-05-21] MEDS: hydrALAZINE INJ 20 MG/ML VIAL 10 MG IV (18:21)
--- NOTE | 2024-05-21 19:22 | PD.RESPRO ---
Documentation for date of: 05/21/24 Subjective Subjective Interval history: ICU downgrade. Patient denies shortness of breath or chest pain. Patient stated taking his hypertensive medication over 8 months as he felt his blood pressure was consistently in the 200s despite 3 medications on board. Patient is nonadherent with his diabetic medication initially placed on metformin in the outpatient setting. Patient stated he sometimes has lower pedal edema after sitting for long periods of time. 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 Patient was initially admitted overnight to ICU secondary hypertensive emergency and placed on a Cardene pain drop which was DC'd at approximately 4:30 PM on 05/21/2024. Patient was started on amlodipine and metoprolol. DIANA versus CKD suspected. CHF being ruled out, echo pending Exam Vital Signs Temp Pulse Resp BP Pulse Ox O2 Del Method 98.5 F 69 10 L 151/95 H 99 Room Air 05/21/24 12:00 05/21/24 18:30 05/21/24 18:30 05/21/24 18:30 05/21/24 18:30 05/21/24 02:15 Narrative Exam General Appearance: Alert & Oriented X3, well-nourished male who is lying in bed in no acute distress HEENT: Skull symmetrical and atraumatic. Conjunctivae pin and moist. Pupils equal, round, reactive to light and accommodation (PERRL). External ear without lesion or discharge. Straight, nares patient, mucosa pink, no discharge. No thyroid nodule appreciated. No cervical lymphadenopathy. Cardio: Normal Rate and Rhythm with S1 and S2 heart sounds. No murmurs or extra heart sounds auscultated. No bruits on carotid auscultation. No peripheral edema or cyanosis. Lungs: Symmetric with good expansion. Chest and back non-tender. Breath sounds vesicular, no crackles appreciated. Abdomen: Non-tender, Non-distended, Normal Reactive Bowel Sounds Neuro: Alert, cooperative, oriented to person, place, and time. Speech clear. CN grossly intact. Upper motor strength 5/5 and Lower motor strength 5/5. Sensation intact. Objective Labs 05/22/24 05:54 05/22/24 05:54 Labs: Laboratory Results - last 24 hr 05/21/24 05/21/24 05/21/24 00:06 00:32 02:32 WBC 11.1 H RBC 3.82 L Hgb 11.6 L Hct 32.9 L MCV 86 MCH 30.4 MCHC 35.3 RDW Std Deviation 43.4 Plt Count 164 Neut % (Auto) 80 Lymph % (Auto) 12 [place] % (Auto) 5 Eos % (Auto) 2 Baso % (Auto) 1 Neut # (Auto) 8.9 H Lymph # (Auto) 1.4 [place] # (Auto) 0.5 Eos # (Auto) 0.2 Baso # (Auto) 0.1 Immature Gran # (Auto) 0.03 H Absolute Nucleated RBC 0.00 Immature Gran % 0 Nucleated RBC % 0 PT 10.9 INR 1.0 APTT 27.6 Sodium 138 Potassium 3.6 Chloride 104 Carbon Dioxide 24.2 Anion Gap 10 BUN 43 H Creatinine 3.8 H Estim Creat Clear Calc 25.8 L eGFR 19 L BUN/Creatinine Ratio 11 L Glucose [address] Glu mg/dL Hemoglobin A1c Calculated Osmolality 289 Calcium 8.8 Corrected Calcium 8.8 Magnesium 2.1 Total Bilirubin 0.7 AST 17 ALT 11 Alkaline Phosphatase 101 Troponin I 0.110 H* 0.108 H* B-Natriuretic Peptide 803 H* Total Protein 7.7 Albumin 4.1 Globulin 3.6 H Albumin/Globulin Ratio 1.1 L Triglycerides Cholesterol LDL Cholesterol, Calc HDL Cholesterol Cholesterol/HDL Ratio Procalcitonin Urine Opiates Screen Negative Urine Fentanyl Screen Negative Ur Barbiturates Screen Negative U Amphetamin/Meth Scrn Negative U Benzodiazepines Scrn Negative U Cocaine Metab Screen Negative U Marijuana (THC) Screen Negative 05/21/24 05/21/24 05:20 11:10 WBC 10.5 RBC 3.77 L Hgb 11.5 L Hct 32.3 L MCV 86 MCH 30.5 MCHC 35.6 RDW Std Deviation 43.6 Plt Count 163 Neut % (Auto) 81 H Lymph % (Auto) 13 [place] % (Auto) 5 Eos % (Auto) 1 Baso % (Auto) 1 Neut # (Auto) 8.5 H Lymph # (Auto) 1.3 [place] # (Auto) 0.5 Eos # (Auto) 0.1 Baso # (Auto) 0.1 Immature Gran # (Auto) 0.03 H Absolute Nucleated RBC 0.00 Immature Gran % 0 Nucleated RBC % 0 PT INR APTT Sodium 138 Potassium 3.1 L D Chloride 103 Carbon Dioxide 23.9 Anion Gap 11 BUN 44 H Creatinine 3.8 H Estim Creat Clear Calc 25.8 L eGFR 19 L BUN/Creatinine Ratio 12 [address]ucose [address] Glu mg/dL 131 Hemoglobin A1c 6.2 H Calculated Osmolality 291 Calcium 8.8 Corrected Calcium 8.8 Magnesium Total Bilirubin 0.7 AST 14 ALT 10 Alkaline Phosphatase 97 Troponin I 0.149 H* B-Natriuretic Peptide Total Protein 7.6 Albumin 4.1 Globulin 3.5 Albumin/Globulin Ratio 1.2 Triglycerides 107 Cholesterol 233 H LDL Cholesterol, Calc 169 H HDL Cholesterol 43 Cholesterol/HDL Ratio 5.4 Procalcitonin 0.25 Urine Opiates Screen Urine Fentanyl Screen Ur Barbiturates Screen U Amphetamin/Meth Scrn U Benzodiazepines Scrn U Cocaine Metab Screen U Marijuana (THC) Screen Quality Measures Quality Measures VTE prophylaxis Assessment & Plan Assessment Current Active Medications: Generic Name Dose Route Start Last Admin Trade Name Freq PRN Reason Stop Dose Admin Acetaminophen 650 mg 05/21/24 04:51 Acetaminophen 325 Mg Tablet PO 06/20/24 04:50 Q4HR PRN PAIN SCALE 1-3 (mild Al Hydrox/Mg Hydrox/Simethicone 30 ml 05/21/24 04:51 Mg Hyd/Al Hyd/Mary (Maalox Reg) Susp 30 Ml Udc PO 06/20/24 04:50 Q4HR PRN Heartburn or Upset Stomach Amlodipine Besylate 10 mg 05/21/24 11:00 05/21/24 12:41 Amlodipine Besylate 5 Mg Tablet PO 06/20/24 10:59 10 mg QDAY RAFIA Administration Dextrose 25 ml 05/21/24 05:00 Dextrose 50%-Water Inj 50 Ml Syringe IV 06/20/24 04:59 Q15MIN PRN BG 50-70 responsive npo pt Dextrose 50 ml 05/21/24 05:00 Dextrose 50%-Water Inj 50 Ml Syringe IV 06/20/24 04:59 Q15MIN PRN BG <50 OR BG <70 & pt unresponsive Furosemide 40 mg 05/21/24 21:00 Furosemide Inj 10 Mg/Ml 4ml Vial IVP 06/20/24 20:59 BID RAFIA Glucagon 1 mg 05/21/24 05:00 Glucagon Inj 1 Mg Vial IM Q15MIN PRN BG <70, and no IV access Heparin Sodium (Porcine) 5,000 unit 05/21/24 07:45 05/21/24 13:51 Heparin Sod Inj 5000 Unit/Ml Vial SC 06/04/24 07:44 5,000 unit Q8HR RAFIA Administration Hydralazine HCl 10 mg 05/21/24 17:34 05/21/24 18:21 Hydralazine Inj 20 Mg/Ml Vial IV 06/20/24 17:44 10 mg Q8H PRN Administration HTN Nicardipine/Sodium Chloride 20 mg in 200 mls @ 50 mls/hr 05/21/24 10:49 05/21/24 16:35 Cardene Ivpb IV 06/20/24 02:17 0 mg/hr .Q4H PRN 0 mls/hr PER PROTOCOL Titration Protocol 5 MG/HR Insulin Human Lispro 0 unit 05/21/24 07:30 05/21/24 17:55 Insulin Lispro (Admelog) 1 Unit/0.01 Ml Unit SC 06/20/24 07:29 Not Given AC RAFIA Protocol Magnesium Hydroxide 30 ml 05/21/24 04:51 Milk Of Magnesia Susp 30 Ml Udc PO 06/20/24 04:50 QDAY PRN CONSTIPATION Metoprolol Tartrate 50 mg 05/21/24 11:00 05/21/24 12:42 Metoprolol Tartrate 25 Mg Tablet PO 06/20/24 10:59 50 mg BID RAFIA Administration Nitroglycerin 0.4 mg 05/20/24 23:43 Nitroglycerin 0.4 Mg Subl Btl #25 SL Q5MIN PRN CHEST PAIN Pharmacy Consult 1 each 05/21/24 09:00 Pharmacy Renal Dose Adjustment 1 Ea XX 06/20/24 08:59 QDAY PRN PROTOCOL Plan Patient is a 48 years old male with past medical history of hypertension and diabetes non adherant to medication who was initially admitted directly to ICU for hypertensive emergency and placed nicardipine drip. #New onset of Congestive Heart Failure Etiology: CHF likely secondary to cardiomyopathy from long standing HTN. BNP 803 DDx: less likely secondary to infectious cause vs SD Lipid Panel: Cholesterol 233 Triglycerides 107, LDL 169, HDL 43 NYHA Class: II ASCVD 21.1%-high intensity Plan: -Lasix 40 mg IV Qday -Echo -Metoprolol tartrate 50 mg BID -Add Aspirin 81 mg Qday AM tomorrow -Atorvastatin-resume tomorrow -Work toward GDMT -K>4 and Mg >2 -SpO <90%, support PRN -Daily Weights, Strict Ins and Outs, Fluid Striction (1500), Sodium Restriction 2 grams per day (AM) #Troponemia, likely NSTEMI type II demand ischemia likely secondary to demain ischemia given hypertensive emergency and CHF exacerbation. ST elvation noted on V3-V4 but no reciprocal T waves notes, deep QRS amplitude noted secondary to hypertrophy at left ventricles likely. Plan -Montior troponin levels -EKG if chest pain develops or troponin worsens. #Hypertension Long standing history of hypertension that required 3 anit-hypertensive medication but remained in 200s for systolic BP. Patient only continued with medication for eight months, then being non-adherant. Plan: -Amlodipine 10 mg PO Qday -Hydralazine 10 mg Q8HR PRN -Given DIANA vs CKD work towards LINETTE/ARBs -Consider renal u/s #Diabetes Mellitus Type II, non insulin dependent Patient usually does not check blood glucose at home. Patient's home medication of Metformin, non-adherant at times. Diagnostics: A1c 6.2% w/ Glucose of 155 (05/21/2024) Plan: -Stop Metformin as outpatine given GFR <30 -Sliding Scale -Monitor fasting blood glucose #DIANA on CKD Patient arrived with Cr 3.8 and GFR of 19, which is lower than baseline form 2019 of Cr 1.3 and GFR >60. Given extenive period BUN/Cr of 19 intrinsic damge likely givne long standing diabetes mellitus and hypertension vs DIANA can not be ruled out. Cardio-renal likely givne CHF and non adherant to anti-hypertensive medication. Plan -Avoid nephrotoxins -Renally dose mediation -Encouage oral hydration -Consider renal U/S given 3 anti-hypertensive medication as outpatient. #Normocytic Anemia no acute intervention #Hypertensive Emergency, Resolved. #Leukocytosis, resolved. Health Maintenance: Disp: Pt is currently admitted to floors for further management of diabetes mellitus and hypertension, awaiting echo. FEN: low carb consistent DVT: on subQ heparin Code: Full Code - The patient's plan was discussed with attending Dr. Khai Macias MD PGY1 Internal Medicine Attending Provider Attestation/Addendum I have discussed and was present for the essential components of the history, physical examination, diagnosis, and treatment plan with the resident. I agree with the patient's care as documented by the resident and amended herein by me. Faustino Ridley DO. Although this document has been carefully reviewed, there may still be some phonetic and other typographical errors. These errors are purely grammatical due to imperfections in the software program and should not be construed in any way to compromise the substance of the patient's medical care during this visit.
[2024-05-21] MEDS: FUROSEMIDE INJ 10 MG/ML 4ML VIAL 40 MG IVP (20:25)
--- NOTE | 2024-05-21 21:09 | PC.NURSE ---
notified Dr Howard of bp 184/103 after pm med given-he stated will look at chart and he will put order in if needed.
[2024-05-21] MEDS: LABETALOL INJ 5 MG/ML VIAL 20 ML 10 MG IVP (21:29)
[2024-05-21] MEDS: SPIRONOLACTONE 25 MG TABLET PO (22:45)
[2024-05-22] VITALS (17 sets, daily range): BP systolic 157–195; BP diastolic 91–116; PULSE 60–80; RESP 12–97; TEMP 36.2–36.9; O2SAT 97–99; BMI 38.5
[2024-05-22] MEDS: HEPARIN SOD INJ 5000 UNIT/ML VIAL SC ×3 (05:16→21:47)
[2024-05-22 06:26] LABS: Basophils # (Auto) 0.1 Thou/mm3 (0.0-0.2); Basophils % (Auto) 1 % (0-2.5); Eosinophils # (Auto) 0.2 Thou/mm3 (0.0-0.5); Eosinophils % (Auto) 3 % (0-10); Hematocrit 33.3 % (41.0-53.0); Hemoglobin 11.5 g/dL (13.5-16.0); Immature Granulocytes % (Auto) 0 % (0-0); Immature Granulocytes Auto 0.03 Thou/mm3 (0.00-0.00); Lymphocytes # (Auto) 1.9 Thou/mm3 (1.0-4.8); Lymphocytes % (Auto) 21 % (10-50); Mean Corpuscular HGB Conc 34.5 g/dl (31.0-37.0); Mean Corpuscular Volume 87 fL (80-100); Monocytes # (Auto) 0.5 Thou/mm3 (0.0-0.8); Monocytes % (Auto) 5 % (0-12); Neutrophils # (Auto) 6.1 Thou/mm3 (1.8-7.7); Neutrophils % (Auto) 70 % (37-80); Nucleated Red Blood Cell % 0 /100 WBC (0); Platelet Count 200 Thou/mm3 (140-440); RDW Standard Deviation 45.4 fL (35.1-43.9); Red Blood Count 3.83 Miln/mm3 (4.50-5.90); White Blood Count 8.7 Thou/mm3 (3.8-10.6)
[2024-05-22 06:49] LABS: Glucose Estimated Average 131 mg/dL (80-131); Hemoglobin A1C 6.2 % Hgb (4.8-6.0)
[2024-05-22 07:05] LABS: Albumin/Globulin Ratio 1.1 (1.2-2.2); Alkaline Phosphatase 93 U/L (46-116); Anion Gap 11 (7-16); Aspartate Amino Transferase 11 U/L (0-34); BUN/Creatinine Ratio 12 Ratio (12-20); Bilirubin,Total 0.6 mg/dL (0.3-1.2); Blood Urea Nitrogen 44 mg/dL (9-23); Calcium 8.5 mg/dL (8.3-10.6); Calcium (Corrected) 8.5 mg/dL (8.5-10.1); Carbon Dioxide 26.6 mMol/L (20.0-31.0); Chloride 100 mMol/L (98-107); Creatinine (Component) 3.7 mg/dL (0.6-1.3); Estimated Creatinine Clearance 26.1 mL/min (>60); Globulin 3.5 gm/dL (2.3-3.5); Glucose 133 mg/dL (74-106); Magnesium 2.2 mg/dL (1.6-2.6); Osmolality,Calculated 288 (275-295); Phosphorous 4.4 mg/dL (2.4-5.1); Potassium 3.3 mMol/L (3.4-5.1); Sodium 138 mMol/L (136-145); Total Protein 7.5 gm/dL (5.7-8.2); eGFR 19 See Note
[2024-05-22 07:06] LABS: Alanine Aminotransferase 9 U/L (10-49)
[2024-05-22] MEDS: hydrALAZINE INJ 20 MG/ML VIAL 10 MG IV (07:27)
[2024-05-22 08:08] LABS: Troponin I 0.307 ng/mL (0.0-0.045)
[2024-05-22] MEDS: FUROSEMIDE INJ 10 MG/ML 4ML VIAL 40 MG IVP (08:10)
[2024-05-22] MEDS: METOPROLOL TARTRATE 25 MG TABLET 50 MG PO ×2 (08:11→20:24)
[2024-05-22] MEDS: amLODIPine BESYLATE 5 MG TABLET 10 MG PO (08:11)
[2024-05-22] MEDS: ASPIRIN EC 81 MG TABEC PO (08:11)
[2024-05-22] MEDS: SPIRONOLACTONE 25 MG TABLET PO ×3 (09:29→20:23)
[2024-05-22] MEDS: POTASSIUM CHLORIDE 10% 20 MEQ/15 ML UDC 40 MEQ PO (09:30)
[2024-05-22] MEDS: LOSARTAN POTASSIUM 25 MG TABLET 100 MG PO (11:16)
--- NOTE | 2024-05-22 11:27 | XR_ITS ---
Examination: Renal sonography Renal Doppler sonographic evaluation renal arteries Exam date and time: May 22, 2024 1750 hrs. Indications: Uncontrolled hypertension this month Technique And Findings: Sonographic reyes scale images kidneys, including Doppler sonographic evaluation, assessment peak arterial velocities, calculation or renal aortic ratios Findings: Right kidney 12.1 cm renal cortex 2.0 cm Left kidney 9.7 cm renal cortex 1.4 cm No bilateral elevation of peak systolic velocities Bilateral mild elevation resistive indices Bilateral normal renal aortic ratios Impression: No Doppler sonographic findings of renal artery stenosis
--- NOTE | 2024-05-22 11:27 | XR_ITS ---
Examination: Retroperitoneal ultrasound, complete Technique: Multiple high resolution grayscale images of the retroperitoneum obtained, including kidneys and bladder. Exam date and time:May 22, 2024, 1738 hours INDICATIONS: Uncontrolled hypertension with acute renal insufficiency and laboratory examination this week FINDINGS: Right kidney 12.3 cm in the cortex 2.3 cm Left kidney 10.7 cm cortex 1.5 cm Moderate bilateral renal parenchymal scar formation No hydronephrosis No bladder mass Bladder prevoid volume 172 cc Prostatomegaly 5.1 x 3.0 x 3.5 cm no prostate nodules IMPRESSION: Moderate bilateral renal parenchymal scar formation No hydronephrosis
--- NOTE | 2024-05-22 11:50 | PD.RESCONSUL ---
HPI Data of Consult Consult date: 05/22/24 Requesting Physician: Pat Kim MD Admitting Provider: Pat Kim MD Attending Provider: Pat Kim MD Primary Care Provider: Physician No Primary/Family Consult Narrative Reason for consult: DIANA on CKD History of present illness: tibco developer Yuliet was used for interpretation Mr. Benjamin is a 48-year-old male PHX of resistant HTN( > 15yrs), DM, presenting with 2 days of nonexertional shortness of breath. In the ED he was found hypertensive with BP 235/142 with HR.. He said he's had resistant hypertension for years, and has been on AMLODIPINE, HYDROCHLOROTHIAZIDE and METOPROLOL, some of these medications he does not take regularly due to stomach upset. Has never had proper workup for his hypertension. He's had diabetes for greater than 2 years ultimately controlled with current A1c of 6.2. Complains of chronic blurriness from his right eye, hasn't seen an registered associate for 10 years. Denies headache, fever, chills, confusion, chest pain, cough, GI or urinary symptoms. Initially he was admitted to ICU and blood pressure was managed with NICARDIPINE after she was downgraded. Currently he is on HYDRALAZINE 10 mg, LOSARTAN 100 mg and METOPROLOL 50 mg BID with blood pressure of 165/104. He was also given SPIRONOLACTONE 25 mg x 1. Remains asymptomatic without chest pain or shortness of breath. Labs are significant for potassium 3.3, BUN 44, 3.8 > 3.7, EGFR 19, GLUCOSE 133, troponin 0.108 > 0.307, LDL 169, cholesterol 233, Hgb 11.5. U tox was negative. UA currently pending. EKG showing sinus rhythm without acute ST changes. CXR showed mild/moderate CHF. Echo showed EF 60?65 with moderate ? severe concentric LVH and severe LA dilation. Abdominal ultrasound without abnormal findings. PMHx: HTN, T2DM. Meds: Pending med rec's. FMHx: Not relevant PSHx: None SHX: Denies, drug or alcohol use. cc:: cc: Pat Kim MD Exam Vital Signs Temp Pulse Resp BP Pulse Ox O2 Del Method 97.5 F 60 12 165/104 H 99 Room Air 05/22/24 08:00 05/22/24 11:16 05/22/24 08:00 05/22/24 11:16 05/22/24 08:00 05/22/24 08:00 Narrative Exam GENERAL Normal appearing adult male, no acute distress HEENT NCAT.?GAURAV. Oral mucosa is moist. Patent Nares NECK Supple, nontender, no thyromegaly, no meningismus, no JVD, no step offs CHEST RRR, no m/g/r CTAB, no w/r/r. Symmetrical chest rise. No intercostal subcostal retraction Atraumatic, nontender, no crepitus, symmetrical expansion. ABDOMEN Soft, flat, nontender. No guarding/rebound tenderness/masses. Bowel sounds presents EXTREMITIES No edema/cyanosis.? SKIN Warm and dry, no jaundice/rashes. NEUROMUSCULAR No lumbar or midline, no CVA, no paraspinal muscle spasm or tenderness. Moves all 4 extremities well, with full ROM and good CSM. PEREZ x4, CN II-XII grossly intact. No focal neurologic deficits. PSYCHIATRY Normal mood and affect, cooperative, no SI or HI or hallucinations. Results Labs 05/23/24 05:45 05/23/24 05:45 Labs: Short CBC 05/22/24 Range/Units 05:54 WBC 8.7 (3.8-10.6) Thou/mm3 Hgb 11.5 L (13.5-16.0) g/dL Hct 33.3 L (41.0-53.0) % Plt Count 200 D (140-440) Thou/mm3 BMP 05/22/24 05:54 Sodium 138 Potassium 3.3 L Chloride 100 Carbon Dioxide 26.6 BUN 44 H Creatinine 3.7 H Glucose 133 H D Calcium 8.5 Cardiac Enzymes 05/22/24 Range/Units 05:54 Troponin I 0.307 H* (0.0-0.045) ng/mL Liver Function 05/22/24 Range/Units 05:54 Total Bilirubin 0.6 (0.3-1.2) mg/dL AST 11 (0-34) U/L ALT 9 L (10-49) U/L Alkaline Phosphatase 93 (46-116) U/L Albumin 4.0 (3.5-5.0) gm/dL Quality Measures Quality Measures VTE prophylaxis Medications Home Medications and Allergies Home Medications ?Medication ?Instructions ?Recorded ?Confirmed ?Type losartan 100 mg tablet 100 mg PO DAILY 06/05/18 06/05/18 History Allergies Allergy/AdvReac Type Severity Reaction Status Date / Time No Known Allergies Allergy Verified 05/20/24 22:00 Visit Medications Acetaminophen (Acetaminophen 325 Mg Tablet) 650 mg PO Q4HR PRN PRN Reason: PAIN SCALE 1-3 (mild Stop: 06/20/24 04:50 Al Hydrox/Mg Hydrox/Simethicone (Mg Hyd/Al Hyd/Mary (Maalox Reg) Susp 30 Ml Udc) 30 ml PO Q4HR PRN PRN Reason: Heartburn or Upset Stomach Stop: 06/20/24 04:50 Aspirin (Aspirin Ec 81 Mg Tabec) 81 mg PO QDAY RAFIA Stop: 06/21/24 08:59 Last Admin: 05/22/24 08:11 Dose: 81 mg Atorvastatin Calcium (Atorvastatin Calcium 20 Mg Tablet) 40 mg PO HS RAFIA Stop: 06/21/24 20:59 Dextrose (Dextrose 50%-Water Inj 50 Ml Syringe) 25 ml IV Q15MIN PRN PRN Reason: BG 50-70 responsive npo pt Stop: 06/20/24 04:59 Dextrose (Dextrose 50%-Water Inj 50 Ml Syringe) 50 ml IV Q15MIN PRN PRN Reason: BG <50 OR BG <70 & pt unresponsive Stop: 06/20/24 04:59 Glucagon (Glucagon Inj 1 Mg Vial) 1 mg IM Q15MIN PRN PRN Reason: BG <70, and no IV access Heparin Sodium (Porcine) (Heparin Sod Inj 5000 Unit/Ml Vial) 5,000 unit SC Q8HR RAFIA Stop: 06/04/24 07:44 Last Admin: 05/22/24 05:16 Dose: 5,000 unit Hydralazine HCl (Hydralazine Inj 20 Mg/Ml Vial) 10 mg IV Q8H PRN PRN Reason: HTN Stop: 06/20/24 17:44 Last Admin: 05/22/24 07:27 Dose: 10 mg Insulin Human Lispro (Insulin Lispro (Admelog) 1 Unit/0.01 Ml Unit) 0 unit SC AC RAFIA; Protocol Stop: 06/20/24 07:29 Last Admin: 05/22/24 07:21 Dose: Not Given Losartan Potassium (Losartan Potassium 25 Mg Tablet) 100 mg PO QDAY [facility] Stop: 06/21/24 09:59 Last Admin: 05/22/24 11:16 Dose: 100 mg Magnesium Hydroxide (Milk Of Magnesia Susp 30 Ml Udc) 30 ml PO QDAY PRN PRN Reason: CONSTIPATION Stop: 06/20/24 04:50 Metoprolol Tartrate (Metoprolol Tartrate 25 Mg Tablet) 50 mg PO BID RAFIA Stop: 06/20/24 10:59 Last Admin: 05/22/24 08:11 Dose: 50 mg Nicardipine HCl (Nicardipine 20 Mg Capsule) 20 mg PO BID [facility] Stop: 06/21/24 11:29 Pharmacy Consult (Pharmacy Renal Dose Adjustment 1 Ea) 1 each XX QDAY PRN PRN Reason: PROTOCOL Stop: 06/20/24 08:59 Spironolactone (Spironolactone 25 Mg Tablet) 50 mg PO QDAY [facility] Stop: 06/22/24 08:59 Discontinued Medications Amlodipine Besylate (Amlodipine Besylate 5 Mg Tablet) 10 mg PO QDAY [facility] Stop: 06/20/24 10:59 Last Admin: 05/22/24 08:11 Dose: 10 mg Aspirin (Aspirin 325 Mg Tablet) 325 mg PO X1 ONE Stop: 05/20/24 23:44 Last Admin: 05/21/24 00:51 Dose: 325 mg Aspirin (Aspirin 325 Mg Tablet) 325 mg PO X1 ONE Stop: 05/21/24 02:31 Last Admin: 05/21/24 03:40 Dose: Not Given Enoxaparin Sodium (Enoxaparin Sod Inj 30 Mg/0.3 Ml Syringe) 30 mg SC QDAY [facility] Stop: 06/04/24 08:59 Furosemide (Furosemide Inj 10 Mg/Ml 4ml Vial) 80 mg IVP X1 ONE Stop: 05/21/24 02:31 Last Admin: 05/21/24 02:38 Dose: 80 mg Furosemide (Furosemide Inj 10 Mg/Ml 4ml Vial) 40 mg IVP BID [facility] Stop: 06/20/24 20:59 Last Admin: 05/22/24 08:10 Dose: 40 mg Hydralazine HCl (Hydralazine Inj 20 Mg/Ml Vial) 10 mg IV X1 ONE Stop: 05/21/24 17:32 Nicardipine/Sodium Chloride (Cardene Ivpb) 20 mg in 200 mls @ 50 mls/hr IV .Q4H PRN; Protocol PRN Reason: PER PROTOCOL Stop: 06/20/24 02:17 Last Titration: 05/21/24 06:09 Dose: 3 mg/hr, 30 mls/hr Ceftriaxone Sodium/Dextrose (Rocephin/D5w 1gm Iv Premix) 1 gm in 50 mls @ 100 mls/hr IV X1 ONE Stop: 05/21/24 04:26 Last Admin: 05/21/24 05:48 Dose: 100 mls/hr Nicardipine/Sodium Chloride (Cardene Ivpb) 20 mg in 200 mls @ 50 mls/hr IV .Q4H PRN; Protocol PRN Reason: PER PROTOCOL Stop: 06/20/24 02:17 Last Titration: 05/21/24 10:38 Dose: 5.5 mg/hr, 55 mls/hr Potassium Chloride (Kcl Ivpb) 20 meq in 100 mls @ 50 mls/hr IV X1 ONE Stop: 05/21/24 08:49 Last Admin: 05/21/24 19:23 Dose: Not Given Potassium Chloride (Kcl Ivpb) 100 mls @ 100 mls/hr IV Q1H RAFIA Stop: 05/21/24 10:29 Last Admin: 05/21/24 10:22 Dose: 100 mls/hr Nicardipine/Sodium Chloride (Cardene Ivpb) 20 mg in 200 mls @ 50 mls/hr IV .Q4H PRN; Protocol PRN Reason: PER PROTOCOL Stop: 06/20/24 02:17 Last Titration: 05/21/24 16:35 Dose: 0 mg/hr, 0 mls/hr Influenza Virus Vaccine Quadrival (Influenza Virus Quadrivalent 0.5 Ml Syringe) 0.5 ml IMi .ONCE ONE Stop: 05/21/24 06:41 Labetalol HCl (Labetalol Inj 5 Mg/Ml Vial 20 Ml) 20 mg IVP X1 ONE Stop: 05/21/24 00:04 Last Admin: 05/21/24 00:51 Dose: 20 mg Labetalol HCl (Labetalol Inj 5 Mg/Ml Vial 20 Ml) 10 mg IVP X1 ONE Stop: 05/21/24 21:14 Last Admin: 05/21/24 21:29 Dose: 10 mg Nitroglycerin (Nitroglycerin 0.4 Mg Subl Btl #25) 0.4 mg SL Q5MIN PRN PRN Reason: CHEST PAIN Pantoprazole Sodium (Pantoprazole 40 Mg Tablet) 40 mg PO QDAY [facility] Stop: 06/20/24 08:59 Potassium Chloride (Potassium Chloride 20 Meq Tabcr) 40 meq PO X1 ONE Stop: 05/21/24 06:51 Last Admin: 05/21/24 08:28 Dose: 40 meq Potassium Chloride (Potassium Chloride 20 Meq Tabcr) 20 meq PO X1 ONE Stop: 05/21/24 07:05 Last Admin: 05/21/24 19:23 Dose: Not Given Potassium Chloride (Potassium Chloride 10% 20 Meq/15 Ml Udc) 40 meq PO X1 ONE Stop: 05/22/24 08:53 Last Admin: 05/22/24 09:30 Dose: 40 meq Potassium Chloride (Potassium Chloride 20 Meq Tabcr) 40 meq PO X1 ONE Stop: 05/22/24 09:43 Potassium Chloride (Potassium Chloride 20 Meq Tabcr) 40 meq PO X1 ONE Stop: 05/22/24 11:30 Spironolactone (Spironolactone 25 Mg Tablet) 25 mg PO X1 ONE Stop: 05/21/24 21:14 Last Admin: 05/21/24 22:45 Dose: 25 mg Spironolactone (Spironolactone 25 Mg Tablet) 25 mg PO QDAY [facility] Stop: 06/22/24 08:59 Spironolactone (Spironolactone 25 Mg Tablet) 25 mg PO QDAY [facility] Stop: 06/21/24 09:59 Last Admin: 05/22/24 09:29 Dose: 25 mg Spironolactone (Spironolactone 25 Mg Tablet) 25 mg PO X1 ONE Stop: 05/22/24 11:31 Assessment & Plan Plan In summary: 48-year-old male with PMHx of DM and resistant hypertension, presenting with shortness of breath, found to have hypertension emergency and DIANA plus or minus CKD. Continue with blood pressure control as listed below. Ordered complete workup for possible underlying renal pathology. Resistant hypertension Hypokalemic metabolic alkalosis DIANA on possible CKD Has history of resistant hypertension on multimodal home ANTIHYPERTENSIVES with persistently elevated BP. Does not check blood pressure regularly at home. Reports medication noncompliance secondary to GI upset. Initially came with SOB, currently asymptomatic, on room air satting well. Admission BP 235/142, currently 165/104 with current regimen. Currently, potassium 3.3, CR 3.7, GFR 19. Unclear if poor kidney function is acute or chronic, or if trigger versus consequence of HTN. DDx: Chronic poorly controlled hypertension,r/o renal artery stenosis, hyperaldosteronism, nephrotic syndrome, chronic renal failure, diabetic nephropathy ? Ordered POTASSIUM CHLORIDE 40 mEq x 1 ? Pending ALDOSTERONE, catecholamine, PTH, renin activity, VITAMIN D, random urine protein, uric acid, UA. ? Pending renal US and renal artery US ? Discontinued AMLODIPINE ? Started NICARDIPINE 20 mg BID ? Increased SPIRONOLACTONE to 50 mg q. day ? Continue LOSARTAN 100 mg q. day ? Continue METOPROLOL 50 mg BID ? Renally dose meds, avoid overdiuresis and NEPHROTOXINS ? Daily CMP New onset of Congestive Heart Failure Troponemia, likely NSTEMI type II demand ischemia T2DM Managed by primary team. Patient case was discussed with attending, Dr. Moreno. Linda Oconnell DO PGYI Attending Provider Attestation/Addendum Patient seen and examined with resident physician . Note reviewed, agree with findings and recommendations. Patient with uncontrolled hypertension for more than 15 years, diabetes for more than 15 years, dyslipidemia presented with poorly controlled hypertension. On 3 class medications at home. Last seen in the primary care physician more than a year ago. Try to review labs from [facility]-not available. Not sure what his baseline creatinine was couple of years ago. Suspect patient has progressive diabetic/hypertensive nephrosclerosis. Agree with secondary hypertension workup. Will switch amlodipine to nicardipine and increase her spironolactone. Thank you Faustino for allowing me to participate in the care of Mr. Lunsford.
--- NOTE | 2024-05-22 12:11 | PD.RESPRO ---
Documentation for date of: 05/22/24 Subjective Subjective Interval history: Overnight, patient continued to have elevated blood pressure despite starting amlodipine and metoprolol tartrate overnight. Hydralazine given x 1 overnight. Systolic blood pressure remained in the 180s to 190s and was given spironolactone 25 mg p.o. x 1. Patient denied chest pain or shortness of breath. Patient denied headaches and bloody vision. Patient denied lower pedal edema. Patient is sitting up at the chair and is ambulating without assistance. Patient will be started on his spironolactone 50 mg daily and nicardipine 20 mg p.o. twice daily as recommended by nephrology. Amlodipine DC'd. Continue MAP metoprolol tartrate 50 mg p.o. twice daily. Fasting glucose within normal range. Exam Vital Signs Temp Pulse Resp BP Pulse Ox O2 Del Method 97.5 F 60 12 165/104 H 99 Room Air 05/22/24 08:00 05/22/24 11:16 05/22/24 08:00 05/22/24 11:16 05/22/24 08:00 05/22/24 08:00 Narrative Exam General Appearance: Alert & Oriented X3, well-nourished male who is lying in bed in no acute distress HEENT: Skull symmetrical and atraumatic. Conjunctivae pin and moist. Pupils equal, round, reactive to light and accommodation (PERRL). External ear without lesion or discharge. Straight, nares patient, mucosa pink, no discharge. No thyroid nodule appreciated. No cervical lymphadenopathy. Cardio: Normal Rate and Rhythm with S1 and S2 heart sounds. No murmurs or extra heart sounds auscultated. No bruits on carotid auscultation. No peripheral edema or cyanosis. Lungs: Symmetric with good expansion. Chest and back non-tender. Breath sounds vesicular without crackles, wheezing or rhonchi Abdomen: Non-tender, Non-distended, Normal Reactive Bowel Sounds Neuro: Alert, cooperative, oriented to person, place, and time. Speech clear. CN grossly intact. Upper motor strength 5/5 and Lower motor strength 5/5. Sensation intact. Objective Labs 05/22/24 05:54 05/22/24 05:54 Labs: Laboratory Results - last 24 hr 05/22/24 05:54 WBC 8.7 RBC 3.83 L Hgb 11.5 L Hct 33.3 L MCV 87 MCH 30.0 MCHC 34.5 RDW Std Deviation 45.4 H Plt Count 200 D Neut % (Auto) 70 Lymph % (Auto) 21 [place] % (Auto) 5 Eos % (Auto) 3 Baso % (Auto) 1 Neut # (Auto) 6.1 Lymph # (Auto) 1.9 [place] # (Auto) 0.5 Eos # (Auto) 0.2 Baso # (Auto) 0.1 Immature Gran # (Auto) 0.03 H Absolute Nucleated RBC 0.00 Immature Gran % 0 Nucleated RBC % 0 Sodium 138 Potassium 3.3 L Chloride 100 Carbon Dioxide 26.6 Anion Gap 11 BUN 44 H Creatinine 3.7 H Estim Creat Clear Calc 26.1 L eGFR 19 L BUN/Creatinine Ratio 12 [address] Glu mg/dL 131 Hemoglobin A1c 6.2 H Calculated Osmolality 288 Calcium 8.5 Corrected Calcium 8.5 Phosphorus 4.4 Magnesium 2.2 Total Bilirubin 0.6 AST 11 ALT 9 L Alkaline Phosphatase 93 Troponin I 0.307 H* Total Protein 7.5 Albumin 4.0 Globulin 3.5 Albumin/Globulin Ratio 1.1 L Quality Measures Quality Measures VTE prophylaxis Assessment & Plan Assessment Current Active Medications: Generic Name Dose Route Start Last Admin Trade Name Freq PRN Reason Stop Dose Admin Acetaminophen 650 mg 05/21/24 04:51 Acetaminophen 325 Mg Tablet PO 06/20/24 04:50 Q4HR PRN PAIN SCALE 1-3 (mild Al Hydrox/Mg Hydrox/Simethicone 30 ml 05/21/24 04:51 Mg Hyd/Al Hyd/Mary (Maalox Reg) Susp 30 Ml Udc PO 06/20/24 04:50 Q4HR PRN Heartburn or Upset Stomach Aspirin 81 mg 05/22/24 09:00 05/22/24 08:11 Aspirin Ec 81 Mg Tabec PO 06/21/24 08:59 81 mg QDAY RAFIA Administration Atorvastatin Calcium 40 mg 05/22/24 21:00 Atorvastatin Calcium 20 Mg Tablet PO 06/21/24 20:59 HS RAFIA Dextrose 25 ml 05/21/24 05:00 Dextrose 50%-Water Inj 50 Ml Syringe IV 06/20/24 04:59 Q15MIN PRN BG 50-70 responsive npo pt Dextrose 50 ml 05/21/24 05:00 Dextrose 50%-Water Inj 50 Ml Syringe IV 06/20/24 04:59 Q15MIN PRN BG <50 OR BG <70 & pt unresponsive Glucagon 1 mg 05/21/24 05:00 Glucagon Inj 1 Mg Vial IM Q15MIN PRN BG <70, and no IV access Heparin Sodium (Porcine) 5,000 unit 05/21/24 07:45 05/22/24 05:16 Heparin Sod Inj 5000 Unit/Ml Vial SC 06/04/24 07:44 5,000 unit Q8HR RAFIA Administration Hydralazine HCl 10 mg 05/21/24 17:34 05/22/24 07:27 Hydralazine Inj 20 Mg/Ml Vial IV 06/20/24 17:44 10 mg Q8H PRN Administration HTN Insulin Human Lispro 0 unit 05/21/24 07:30 05/22/24 07:21 Insulin Lispro (Admelog) 1 Unit/0.01 Ml Unit SC 06/20/24 07:29 Not Given AC [facility] Protocol Losartan Potassium 100 mg 05/22/24 10:00 05/22/24 11:16 Losartan Potassium 25 Mg Tablet PO 06/21/24 09:59 100 mg QDAY RAFIA Administration Magnesium Hydroxide 30 ml 05/21/24 04:51 Milk Of Magnesia Susp 30 Ml Udc PO 06/20/24 04:50 QDAY PRN CONSTIPATION Metoprolol Tartrate 50 mg 05/21/24 11:00 05/22/24 08:11 Metoprolol Tartrate 25 Mg Tablet PO 06/20/24 10:59 50 mg BID RAFIA Administration Nicardipine HCl 20 mg 05/22/24 11:30 Nicardipine 20 Mg Capsule PO 06/21/24 11:29 BID [facility] Pharmacy Consult 1 each 05/21/24 09:00 Pharmacy Renal Dose Adjustment 1 Ea XX 06/20/24 08:59 QDAY PRN PROTOCOL Spironolactone 50 mg 05/23/24 09:00 Spironolactone 25 Mg Tablet PO 06/22/24 08:59 QDAY RAFIA Plan Patient is a 48 years old male with past medical history of hypertension and diabetes who non adherent to medication. Admitted initially on 05/21/2024 directly to ICU for hypertensive emergency and down graded overnight to floors for further management resistant hypertension. #Resistant Hypertension #DIANA on CKD Long standing history of hypertension that required 3 anit-hypertensive medication but remained in 200s for systolic BP. Patient only continued with medication for eight months, then being non-adherant. Sanket previously was on 3 anti-hypertensive medicaiton as outpatient without bieng able to control blood pressure. Patient deneid CKD history. DIANA likely secondary to pre-renal recondary to hypertensive emergency given secondary causes. CKD secondary to diabetic neropathy can not be ruled out but less likely as A1c 6.9%. DDx: Renal artery stenosis can not be ruled out vs primary aldosterone given low-normal potassium vs lexa Plan: -Amlodipine 10 mg PO Qday D/C -Per Nephorlology: Alosterone, Catecholamine, PTH, Renin Acitivity, Vitamin D, random urine protien creatine, uric acid, UA -F/U w/ renal US and Renal artery US -Almlodpine D/C -Nicardipine 20 mg BID, Spironolactone 50 mg qday, continue Losartan 100 mg once daily -Renally dose medication -avoid nephrotoxins -Hydralazine 10 mg Q8HR PRN -Consult nephrology, appreciate recommendations, Dr. Moreno #New onset of Congestive Heart Failure #CHFpEF Etiology: CHF likely secondary to cardiomyopathy from long standing HTN. BNP 803 on admission. DDx: less likely secondary to infectious cause vs PR Lipid Panel: Cholesterol 233 Triglycerides 107, LDL 169, HDL 43 NYHA Class: II ASCVD 21.1%-high intensity Echo: Normal zie and function with estimated at 60-65%. Moderate to severe concentric LVH. Diastolic dysfucntion stage I. Plan: -Metoprolol tartrate 50 mg BID -Add Aspirin 81 mg once a day -Atorvastatin -Work toward GDMT -K>4 and Mg >2 -SpO <90%, support PRN -Daily Weights, Strict Ins and Outs, Fluid Striction (1500), Sodium Restriction 2 grams per day (AM) #Troponemia, likely NSTEMI type II demand ischemia likely secondary to demain ischemia given hypertensive emergency and CHF exacerbation. ST elvation noted on V3-V4 but no reciprocal T waves notes, deep QRS amplitude noted secondary to hypertrophy at left ventricles likely. Plan -Montior troponin levels -EKG if chest pain develops or troponin worsens. #Diabetes Mellitus Type II, non insulin dependent Patient usually does not check blood glucose at home. Patient's home medication of Metformin, non-adherant at times. Diagnostics: A1c 6.2% w/ Glucose of 155 (05/21/2024) Total Sliding sclae given overnight 1 unit Plan: -Stop Metformin as outpatine given GFR <30 -Sliding Scale -Monitor fasting blood glucose #Normocytic Anemia no acute intervention #Hypertensive Emergency, Resolved. #Leukocytosis, resolved. Health Maintenance: Disp: Pt is currently admitted to floors for further management of diabetes mellitus and hypertension, and results renal u/s FEN: low carb consistent DVT: on subQ heparin Code: Full Code - The patient's plan was discussed with attending Dr. Khai Macias MD PGY1 Internal Medicine Attending Provider Attestation/Addendum I have discussed and was present for the essential components of the history, physical examination, diagnosis, and treatment plan with the resident. I agree with the patient's care as documented by the resident and amended herein by me. Faustino Ridley, DO. Patient seen and evaluated this AM. No acute events overnight, BP elevated this morning SBP in the 190s, eyes nose 20-. CBC largely unremarkable, BMP significant for potassium of 3.3, creatinine 3.7 although downtrending. Nephrology consulted for likely DIANA and CKD, will also investigate secondary causes for refractory hypertension. At this time per nephrology recommendations, Nicardipine 20 mg twice daily, spironolactone 50 mg daily, losartan 100 mg daily and metoprolol 50 mg twice daily. Also ordered a aldosterone, catecholamines, PTH, renin, spot urine protein and creatinine as well as vitamin D, uric acid and a UA. Continue to monitor closely while he is here, the patient feels well was up in chair at time of bedside visit. Although this document has been carefully reviewed, there may still be some phonetic and other typographical errors. These errors are purely grammatical due to imperfections in the software program and should not be construed in any way to compromise the substance of the patient's medical care during this visit.
[2024-05-22 13:34] LABS: Troponin I 0.221 ng/mL (0.0-0.045)
[2024-05-22 14:48] LABS: Uric Acid 8.7 mg/dL (3.7-9.2)
[2024-05-22 15:53] LABS: Collection Type, Urine Clean Catch; Squamous Epithelial Cell,Urine 0 /hpf (0-5); WBC,Urine 0 /hpf (0-5)
[2024-05-22 15:58] LABS: Bilirubin,Urine Negative (Negative); Blood,Urine Negative (Negative); Clarity,Urine Clear (Clear/Hazy); Color,Urine Colorless (Lt Yel-Yel); Glucose, Urine 3+ (Negative); Ketones,Urine Negative (Negative); Leukocyte Esterase,Urine Negative (Negative); Nitrite,Urine Negative (Negative); Protein,Urine Trace (Neg - Trace); RBC,Urine < 1 /hpf (0-3); Specific Gravity,Urine 1.006 (1.001-1.035); Urobilinogen,Urine Negative mg/dL (0.0-1.0)
[2024-05-22 16:03] LABS: Creatinine,Random Urine 21 mg/dL (30-125); Protein Total, Random Urine 40 mg/dL (1-14)
[2024-05-22] MEDS: niCARdipine 20 MG CAPSULE PO (18:17)
[2024-05-22 19:12] LABS: Troponin I 0.185 ng/mL (0.0-0.045)
[2024-05-22] MEDS: MELATONIN 3 MG TABLET PO (20:23)
[2024-05-22] MEDS: ATORVASTATIN CALCIUM 20 MG TABLET 40 MG PO (20:23)
[2024-05-23] VITALS (18 sets, daily range): BP systolic 149–168; BP diastolic 87–104; PULSE 51–74; RESP 13–99; TEMP 35.9–36.5; O2SAT 97–99; BMI 39.2
[2024-05-23 01:19] LABS: Troponin I 0.184 ng/mL (0.0-0.045)
[2024-05-23] MEDS: HEPARIN SOD INJ 5000 UNIT/ML VIAL SC ×3 (05:17→21:14)
[2024-05-23 06:16] LABS: Basophils # (Auto) 0.1 Thou/mm3 (0.0-0.2); Basophils % (Auto) 1 % (0-2.5); Eosinophils # (Auto) 0.3 Thou/mm3 (0.0-0.5); Eosinophils % (Auto) 3 % (0-10); Immature Granulocytes % (Auto) 0 % (0-0); Immature Granulocytes Auto 0.03 Thou/mm3 (0.00-0.00); Mean Corpuscular Volume 88 fL (80-100); Monocytes # (Auto) 0.6 Thou/mm3 (0.0-0.8); Monocytes % (Auto) 6 % (0-12); Nucleated Red Blood Cell % 0 /100 WBC (0)
[2024-05-23 06:40] LABS: Hematocrit 33.8 % (41.0-53.0); Hemoglobin 11.9 g/dL (13.5-16.0); Lymphocytes # (Auto) 2.1 Thou/mm3 (1.0-4.8); Lymphocytes % (Auto) 21 % (10-50); Mean Corpuscular HGB Conc 35.2 g/dl (31.0-37.0); Mean Corpuscular Hemoglobin 31.1 pg (25.0-35.0); Neutrophils # (Auto) 6.7 Thou/mm3 (1.8-7.7); Neutrophils % (Auto) 69 % (37-80); Platelet Count 215 Thou/mm3 (140-440); RDW Standard Deviation 47.1 fL (35.1-43.9); Red Blood Count 3.83 Miln/mm3 (4.50-5.90); White Blood Count 9.7 Thou/mm3 (3.8-10.6)
[2024-05-23 06:57] LABS: Alanine Aminotransferase 8 U/L (10-49); Albumin, Serum 3.8 gm/dL (3.5-5.0); Albumin/Globulin Ratio 1.1 (1.2-2.2); Alkaline Phosphatase 86 U/L (46-116); Anion Gap 10 (7-16); Aspartate Amino Transferase < 10 U/L (0-34); BUN/Creatinine Ratio 15 Ratio (12-20); Bilirubin,Total 0.4 mg/dL (0.3-1.2); Blood Urea Nitrogen 59 mg/dL (9-23); Calcium 8.6 mg/dL (8.3-10.6); Calcium (Corrected) 8.8 mg/dL (8.5-10.1); Carbon Dioxide 25.2 mMol/L (20.0-31.0); Chloride 101 mMol/L (98-107); Estimated Creatinine Clearance 24.4 mL/min (>60); Globulin 3.5 gm/dL (2.3-3.5); Glucose 144 mg/dL (74-106); Magnesium 2.3 mg/dL (1.6-2.6); Osmolality,Calculated 291 (275-295); Phosphorous 4.1 mg/dL (2.4-5.1); Potassium 4.3 mMol/L (3.4-5.1); Sodium 136 mMol/L (136-145); Total Protein 7.3 gm/dL (5.7-8.2); eGFR 17 See Note
[2024-05-23] MEDS: LOSARTAN POTASSIUM 25 MG TABLET 100 MG PO (08:28)
[2024-05-23] MEDS: SPIRONOLACTONE 25 MG TABLET 50 MG PO (08:29)
[2024-05-23] MEDS: ASPIRIN EC 81 MG TABEC PO (08:30)
[2024-05-23] MEDS: niCARdipine 20 MG CAPSULE PO ×3 (08:46→21:03)
[2024-05-23] MEDS: carVEDILOL 3.125 MG TABLET 6.25 MG PO ×2 (09:57→17:55)
--- NOTE | 2024-05-23 11:05 | ESPR_ITS ---
Documentation for date of: 05/23/24 Subjective Subjective Interval history: Mr. Benjamin is a 48-year-old male PHX of resistant HTN( > 15yrs), DM, presenting with 2 days of nonexertional shortness of breath. In the ED he was found hypertensive with BP 235/142 with HR.. He said he's had resistant hypertension for years, and has been on AMLODIPINE, HYDROCHLOROTHIAZIDE and METOPROLOL, some of these medications he does not take regularly due to stomach upset. Has never had proper workup for his hypertension. He's had diabetes for greater than 2 years ultimately controlled with current A1c of 6.2. Complains of chronic blurriness from his right eye, hasn't seen an paint specialist for 10 years. Denies headache, fever, chills, confusion, chest pain, cough, GI or urinary symptoms. Initially he was admitted to ICU and blood pressure was managed with NICARDIPINE after she was downgraded. Currently he is on HYDRALAZINE 10 mg, LOSARTAN 100 mg and METOPROLOL 50 mg BID with blood pressure of 165/104. He was also given SPIRONOLACTONE 25 mg x 1. Remains asymptomatic without chest pain or shortness of breath. Labs are significant for potassium 3.3, BUN 44, 3.8 > 3.7, EGFR 19, GLUCOSE 133, troponin 0.108 > 0.307, LDL 169, cholesterol 233, Hgb 11.5. U tox was negative. UA currently pending. EKG showing sinus rhythm without acute ST changes. CXR showed mild/moderate CHF. Echo showed EF 60?65 with moderate ? severe concentric LVH and severe LA dilation. Abdominal ultrasound without abnormal findings. 05/23/2024 Patient currently seen in medical floor. at bedside. Nepali interpretation used. Denies any chest pain, shortness of breath. His blood pressure 149/87. Heart rate 74. Hemoglobin 11.9, sodium 136, potassium 4.3, bicarbonate 25.2, BUN 59, creatinine 4, GFR 17, calcium 8.8, phosphorus 4.1, LFTs normal, troponin 0.18, renal ultrasound showed mild CKD changes. Renal Doppler negative for renal artery stenosis. Review of Systems Review of Systems Narrative Review of Systems: CONSTITUTIONAL: Patient denies any fever, chills. HEENT: Denies any visual disturbances or hearing problems. CARDIOVASCULAR: Patient denies any chest pain, shortness of breath, swelling in the lower extremities. PULMONARY: Patient denies any shortness of breath, cough. GASTROINTESTINAL: Patient denies any abdominal pain, constipation, nausea, vomiting, diarrhea. GENITOURINARY: Patient denies any urinary symptoms of burning or frequency or hematuria, denies any form in the urine. SKIN: Denies any rash. MUSCULOSKELETAL: Denies any muscular skeletal problems of joint pains. NEUROLOGICAL: Denies any neurological problems of strokes, seizures or confusion. Denies any memory problems. PSYCHIATRIC: Denies any depression or anxiety. LYMPHATICS : No lymphadenopathy Exam Vital Signs Temp Pulse Resp BP Pulse Ox O2 Del Method 36.0 C 65 14 168/95 H 97 Room Air 05/23/24 08:00 05/23/24 09:57 05/23/24 08:00 05/23/24 09:57 05/23/24 08:00 05/23/24 08:00 Narrative Exam GENERAL APPEARANCE: Patient seems to be comfortable, adequately hydrated and nourished. HEENT: EOMI, PERRLA NECK: Neck supple, no JVD or bruit CARDIOVASCULAR: Heart regular, no murmurs LUNGS/CHEST: Chest clear to auscultation. No rales, rhonchi, wheezing ABDOMEN: Soft, nontender, nondistended. No masses. Normal bowel sounds. EXTREMITIES: No edema, clubbing or cyanosis. SKIN: Skin exam normal without any rashes MUSCULOSKELETAL: Musculoskeletal exam normal PSYCHIATRIC: Normal mood, affect LYMPHATICS: No lymphadenopathy noted NEUROLOGICAL : No neurological deficits Objective Labs 05/23/24 05:45 05/23/24 05:45 Labs: Laboratory Results - last 24 hr 05/22/24 05/22/24 05/22/24 12:54 15:30 18:30 WBC RBC Hgb Hct MCV MCH MCHC RDW Std Deviation Plt Count Neut % (Auto) Lymph % (Auto) [place] % (Auto) Eos % (Auto) Baso % (Auto) Neut # (Auto) Lymph # (Auto) [place] # (Auto) Eos # (Auto) Baso # (Auto) Immature Gran # (Auto) Absolute Nucleated RBC Immature Gran % Nucleated RBC % Sodium Potassium Chloride Carbon Dioxide Anion Gap BUN Creatinine Estim Creat Clear Calc eGFR BUN/Creatinine Ratio Glucose Calculated Osmolality Uric Acid 8.7 Calcium Corrected Calcium Phosphorus Magnesium Total Bilirubin AST ALT Alkaline Phosphatase Troponin I 0.221 H* 0.185 H* Total Protein Albumin Globulin Albumin/Globulin Ratio Ur Collection Type Clean Catch Urine Color Colorless A Urine Clarity Clear Urine pH 6.0 Ur Specific [place] 1.006 Urine Protein Trace Urine Glucose (UA) 3+ A Urine Ketones Negative Urine Blood Negative Urine Nitrite Negative Urine Bilirubin Negative Urine Urobilinogen (Auto) Negative Ur Leukocyte Esterase Negative Urine RBC < 1 Urine WBC 0 Ur Squamous Epith Cells 0 Urine Bacteria None Ur Random Creatinine 21 L U Random Total Protein 40 H 05/23/24 05/23/24 00:42 05:45 WBC 9.7 RBC 3.83 L Hgb 11.9 L Hct 33.8 L MCV 88 MCH 31.1 MCHC 35.2 RDW Std Deviation 47.1 H Plt Count 215 Neut % (Auto) 69 Lymph % (Auto) 21 [place] % (Auto) 6 Eos % (Auto) 3 Baso % (Auto) 1 Neut # (Auto) 6.7 Lymph # (Auto) 2.1 Casey # (Auto) 0.6 Eos # (Auto) 0.3 Baso # (Auto) 0.1 Immature Gran # (Auto) 0.03 H Absolute Nucleated RBC 0.00 Immature Gran % 0 Nucleated RBC % 0 Sodium 136 Potassium 4.3 D Chloride 101 Carbon Dioxide 25.2 Anion Gap 10 BUN 59 H Creatinine 4.0 H Estim Creat Clear Calc 24.4 L eGFR 17 L BUN/Creatinine Ratio 15 Glucose 144 H Calculated Osmolality 291 Uric Acid Calcium 8.6 Corrected Calcium 8.8 Phosphorus 4.1 Magnesium 2.3 Total Bilirubin 0.4 AST < 10 ALT 8 L Alkaline Phosphatase 86 Troponin I 0.184 H* Total Protein 7.3 Albumin 3.8 Globulin 3.5 Albumin/Globulin Ratio 1.1 L Ur Collection Type Urine Color Urine Clarity Urine pH Ur Specific [place] Urine Protein Urine Glucose (UA) Urine Ketones Urine Blood Urine Nitrite Urine Bilirubin Urine Urobilinogen (Auto) Ur Leukocyte Esterase Urine RBC Urine WBC Ur Squamous Epith Cells Urine Bacteria Ur Random Creatinine U Random Total Protein Assessment & Plan Additional Assessment & Plan Additional Plan: Resistant hypertension Hypokalemic metabolic alkalosis DIANA on CKD IV NSTEMI Diastolic heart failure Proteinuria Mild anemia Patient seems to have worsening renal function-most likely related to progression of his underlying hypertensive/diabetic nephropathy. Patient has poorly controlled hypertension for more than 15 years. Currently on 4 class medications, one of them is a diuretic. So far workup for secondary hypertension seems to be negative. Renal ultrasound showed parenchymal disease. Renal Doppler negative for RTA. Echocardiogram showed severe left ventricular hypertrophy with ejection fraction 50 to 55%. Patient has LA dilation. His renal function continues to decline-I am afraid he might end up on renal replacement therapy. Had a long discussion with patient and his -agreed for dialysis if indicated
[2024-05-23] MEDS: hydrALAZINE INJ 20 MG/ML VIAL 10 MG IV (14:31)
--- NOTE | 2024-05-23 14:48 | ESPR_ITS ---
Documentation for date of: 05/23/24 Subjective Subjective Interval history: Overnight events. Patient examined, sitting in chair, comfortable. Denies headaches, chest pain, shortness of breath, fatigue, nausea, vomiting. Ultrasound showed bilateral renal parenchymal scarring, no renal artery stenosis. Continue to monitor blood pressure for slow decrease. Change metoprolol to Coreg. Exam Vital Signs Temp Pulse Resp BP Pulse Ox O2 Del Method 96.7 F L 62 16 164/104 H 99 Room Air 05/23/24 12:00 05/23/24 14:31 05/23/24 13:46 05/23/24 14:31 05/23/24 12:00 05/23/24 12:00 Narrative Exam PE: Gen: Well-developed and well-nourished. HEENT: NCAT, PERRLA, EOMI, MMM, anicteric conjunctivae. CVS: normal S1 and S2. RRR. No M/R/G. Resp: CTA B/L. No rhonchi, rales, crackles or wheezing. Abd: soft, non-tender, non-distended. MSK: Good ROM in BUE & BLE. No edema or rash. Neuro: CN II-XII grossly intact. Strength 5/5 in BUE & BLE. Alert and oriented x3. Psych: appropriate mood and affect. Objective Labs 05/23/24 05:45 05/23/24 05:45 Labs: Laboratory Results - last 24 hr 05/22/24 05/22/24 05/22/24 12:54 15:30 18:30 WBC RBC Hgb Hct MCV MCH MCHC RDW Std Deviation Plt Count Neut % (Auto) Lymph % (Auto) [place] % (Auto) Eos % (Auto) Baso % (Auto) Neut # (Auto) Lymph # (Auto) [place] # (Auto) Eos # (Auto) Baso # (Auto) Immature Gran # (Auto) Absolute Nucleated RBC Immature Gran % Nucleated RBC % Sodium Potassium Chloride Carbon Dioxide Anion Gap BUN Creatinine Estim Creat Clear Calc eGFR BUN/Creatinine Ratio Glucose Calculated Osmolality Uric Acid 8.7 Calcium Corrected Calcium Phosphorus Magnesium Total Bilirubin AST ALT Alkaline Phosphatase Troponin I 0.185 H* Total Protein Albumin Globulin Albumin/Globulin Ratio Ur Collection Type Clean Catch Urine Color Colorless A Urine Clarity Clear Urine pH 6.0 Ur Specific [place] 1.006 Urine Protein Trace Urine Glucose (UA) 3+ A Urine Ketones Negative Urine Blood Negative Urine Nitrite Negative Urine Bilirubin Negative Urine Urobilinogen (Auto) Negative Ur Leukocyte Esterase Negative Urine RBC < 1 Urine WBC 0 Ur Squamous Epith Cells 0 Urine Bacteria None Ur Random Creatinine 21 L U Random Total Protein 40 H 05/23/24 05/23/24 00:42 05:45 WBC 9.7 RBC 3.83 L Hgb 11.9 L Hct 33.8 L MCV 88 MCH 31.1 MCHC 35.2 RDW Std Deviation 47.1 H Plt Count 215 Neut % (Auto) 69 Lymph % (Auto) 21 [place] % (Auto) 6 Eos % (Auto) 3 Baso % (Auto) 1 Neut # (Auto) 6.7 Lymph # (Auto) 2.1 [place] # (Auto) 0.6 Eos # (Auto) 0.3 Baso # (Auto) 0.1 Immature Gran # (Auto) 0.03 H Absolute Nucleated RBC 0.00 Immature Gran % 0 Nucleated RBC % 0 Sodium 136 Potassium 4.3 D Chloride 101 Carbon Dioxide 25.2 Anion Gap 10 BUN 59 H Creatinine 4.0 H Estim Creat Clear Calc 24.4 L eGFR 17 L BUN/Creatinine Ratio 15 Glucose 144 H Calculated Osmolality 291 Uric Acid Calcium 8.6 Corrected Calcium 8.8 Phosphorus 4.1 Magnesium 2.3 Total Bilirubin 0.4 AST < 10 ALT 8 L Alkaline Phosphatase 86 Troponin I 0.184 H* Total Protein 7.3 Albumin 3.8 Globulin 3.5 Albumin/Globulin Ratio 1.1 L Ur Collection Type Urine Color Urine Clarity Urine pH Ur Specific [place] Urine Protein Urine Glucose (UA) Urine Ketones Urine Blood Urine Nitrite Urine Bilirubin Urine Urobilinogen (Auto) Ur Leukocyte Esterase Urine RBC Urine WBC Ur Squamous Epith Cells Urine Bacteria Ur Random Creatinine U Random Total Protein Quality Measures Quality Measures VTE prophylaxis Assessment & Plan Assessment Current Active Medications: Generic Name Dose Route Start Last Admin Trade Name Freq PRN Reason Stop Dose Admin Acetaminophen 650 mg 05/21/24 04:51 Acetaminophen 325 Mg Tablet PO 06/20/24 04:50 Q4HR PRN PAIN SCALE 1-3 (mild Al Hydrox/Mg Hydrox/Simethicone 30 ml 05/21/24 04:51 Mg Hyd/Al Hyd/Mary (Maalox Reg) Susp 30 Ml Udc PO 06/20/24 04:50 Q4HR PRN Heartburn or Upset Stomach Aspirin 81 mg 05/22/24 09:00 05/23/24 08:30 Aspirin Ec 81 Mg Tabec PO 06/21/24 08:59 81 mg QDAY RAFIA Administration Atorvastatin Calcium 40 mg 05/22/24 21:00 05/22/24 20:23 Atorvastatin Calcium 20 Mg Tablet PO 06/21/24 20:59 40 mg HS RAFIA Administration Carvedilol 6.25 mg 05/23/24 08:15 05/23/24 09:57 Carvedilol 3.125 Mg Tablet PO 06/22/24 08:14 6.25 mg BIDWM RAFIA Administration Dextrose 25 ml 05/21/24 05:00 Dextrose 50%-Water Inj 50 Ml Syringe IV 06/20/24 04:59 Q15MIN PRN BG 50-70 responsive npo pt Dextrose 50 ml 05/21/24 05:00 Dextrose 50%-Water Inj 50 Ml Syringe IV 06/20/24 04:59 Q15MIN PRN BG <50 OR BG <70 & pt unresponsive Glucagon 1 mg 05/21/24 05:00 Glucagon Inj 1 Mg Vial IM Q15MIN PRN BG <70, and no IV access Heparin Sodium (Porcine) 5,000 unit 05/21/24 07:45 05/23/24 14:10 Heparin Sod Inj 5000 Unit/Ml Vial SC 06/04/24 07:44 5,000 unit Q8HR RAFIA Administration Hydralazine HCl 10 mg 05/21/24 17:34 05/23/24 14:31 Hydralazine Inj 20 Mg/Ml Vial IV 06/20/24 17:44 10 mg Q8H PRN Administration HTN Hydroxyzine HCl 10 mg 05/22/24 15:19 Hydroxyzine Hcl 10 Mg Tablet PO 06/21/24 15:18 Q6HR PRN ANXIETY Insulin Human Lispro 0 unit 05/21/24 07:30 05/23/24 11:45 Insulin Lispro (Admelog) 1 Unit/0.01 Ml Unit SC 06/20/24 07:29 Not Given AC [facility] Protocol Losartan Potassium 100 mg 05/22/24 10:00 05/23/24 08:28 Losartan Potassium 25 Mg Tablet PO 06/21/24 09:59 100 mg QDAY RAFIA Administration Magnesium Hydroxide 30 ml 05/21/24 04:51 Milk Of Magnesia Susp 30 Ml Udc PO 06/20/24 04:50 QDAY PRN CONSTIPATION Melatonin 3 mg 05/22/24 21:00 05/22/24 20:23 Melatonin 3 Mg Tablet PO 06/21/24 20:59 3 mg HS RAFIA Administration Nicardipine HCl 20 mg 05/23/24 08:45 05/23/24 14:10 Nicardipine 20 Mg Capsule PO 06/22/24 08:44 20 mg TID RAFIA Administration Pharmacy Consult 1 each 05/21/24 09:00 Pharmacy Renal Dose Adjustment 1 Ea XX 06/20/24 08:59 QDAY PRN PROTOCOL Spironolactone 50 mg 05/23/24 09:00 05/23/24 08:29 Spironolactone 25 Mg Tablet PO 06/22/24 08:59 50 mg QDAY RAFIA Administration Plan Patient is a 48 years old male with past medical history of hypertension and diabetes who non adherent to medication. Admitted initially on 05/21/2024 directly to ICU for hypertensive emergency and down graded overnight to floors for further management resistant hypertension. #Resistant Hypertension #DIANA on CKD Long standing history of hypertension that required 3 anit-hypertensive medication but remained in 200s for systolic BP. Patient only continued with medication for eight months, then being non-adherant. Sanket previously was on 3 anti-hypertensive medicaiton as outpatient without bieng able to control blood pressure. Patient deneid CKD history. DIANA likely secondary to pre-renal recondary to hypertensive emergency given secondary causes. CKD secondary to diabetic neropathy can not be ruled out but less likely as A1c 6.9%. DDx: Renal artery stenosis can not be ruled out vs primary aldosterone given low-normal potassium vs lexa Renal ultrasound showed moderate bilateral parenchymal scarring, no renal artery stenosis. -Per Nephorlology: Alosterone, Catecholamine, PTH, Renin Acitivity, Vitamin D, random urine protien creatine, uric acid, UA -Nicardipine 20 mg TID, Spironolactone 50 mg qday, continue Losartan 100 mg once daily, Coreg 6.25 mg p.o. twice daily -Renally dose medication -avoid nephrotoxins -Hydralazine 10 mg Q8HR PRN -Consult nephrology, appreciate recommendations, Dr. Moreno #New onset of Congestive Heart Failure #CHFpEF Etiology: CHF likely secondary to cardiomyopathy from long standing HTN. BNP 803 on admission. DDx: less likely secondary to infectious cause vs AL Lipid Panel: Cholesterol 233 Triglycerides 107, LDL 169, HDL 43 NYHA Class: II ASCVD 21.1%-high intensity Echo: Normal zie and function with estimated at 60-65%. Moderate to severe concentric LVH. Diastolic dysfucntion stage I. -Coreg 6.25 mg p.o. twice daily -Add Aspirin 81 mg once a day -Atorvastatin -Work toward GDMT -K>4 and Mg >2 -SpO <90%, support PRN -Daily Weights, Strict Ins and Outs, Fluid Striction (1500), Sodium Restriction 2 grams per day (AM) #NSTEMI type II demand ischemia likely secondary to demain ischemia given hypertensive emergency and CHF exacerbation. ST elvation noted on V3-V4 but no reciprocal T waves notes, deep QRS amplitude noted secondary to hypertrophy at left ventricles likely. Patient has had no chest pain/discomfort - Troponin peaked at 0.307 #Diabetes Mellitus Type II, non insulin dependent Patient usually does not check blood glucose at home. Patient's home medication of Metformin, non-adherant at times. Diagnostics: A1c 6.2% w/ Glucose of 155 (05/21/2024) -Stop Metformin as outpatine given GFR <30 -Sliding Scale -Monitor fasting blood glucose #Normocytic Anemia no acute intervention #Hypertensive Emergency, Resolved. #Leukocytosis, resolved. Lines: Peripheral IV FEN: low carb consistent DVT: on subQ heparin Code: Full Code Plan of care discussed with attending Dr. Ridley. Jag Fuchs MD PGY?1 Attending Provider Attestation/Addendum I have discussed and was present for the essential components of the history, physical examination, diagnosis, and treatment plan with the resident. I agree with the patient's care as documented by the resident and amended herein by me. Faustino Ridley, DO. Patient seen and evaluated this AM. No acute events overnight, vital signs stable, patient afebrile, blood pressure slightly improved today, in the 150s and 160s overnight. Significant labs include a hemoglobin 11.9, BUN 59 and an uptrend in his creatinine to 4 today. Workup for secondary hypertension negative thus far however labs for primary hyperaldosteronism still pending. Imaging to include renal duplex ultrasound unremarkable. Protein to creatinine ratio is elevated, the patient is spilling approximately 1.9 g of protein. Nephrology consulted, appreciate recommendations, patient may need ORDER ENTRY SPECIALIST however will continue to monitor closely for improvement in his renal function. Patient will remain on spironolactone 50 mg daily, aspirin, atorvastatin, losartan 100 mg daily, nicardipine 20 mg 3 times daily and we did adjust the beta-allen to Coreg 6.25 mg twice daily for improved blood pressure control. Will continue to monitor closely, appreciate specialist recommendations. Although this document has been carefully reviewed, there may still be some phonetic and other typographical errors. These errors are purely grammatical due to imperfections in the software program and should not be construed in any way to compromise the substance of the patient's medical care during this visit.
[2024-05-23] MEDS: hydrOXYzine HCL 10 MG TABLET PO (16:06)
[2024-05-23] MEDS: ATORVASTATIN CALCIUM 20 MG TABLET 40 MG PO (21:02)
[2024-05-23] MEDS: MELATONIN 3 MG TABLET PO (21:03)
[2024-05-24] VITALS (15 sets, daily range): BP systolic 140–175; BP diastolic 84–100; PULSE 56–69; RESP 14–18; TEMP 36.2–36.5; O2SAT 97–100
[2024-05-24] MEDS: niCARdipine 20 MG CAPSULE PO ×3 (05:24→21:03)
[2024-05-24] MEDS: HEPARIN SOD INJ 5000 UNIT/ML VIAL SC ×3 (05:26→21:03)
--- NOTE | 2024-05-24 05:35 | PC.NURSE ---
pt does not take any home meds. Last went to see pmd was a year ago per pt.
[2024-05-24 06:03] LABS: Basophils # (Auto) 0.1 Thou/mm3 (0.0-0.2); Basophils % (Auto) 1 % (0-2.5); Eosinophils # (Auto) 0.4 Thou/mm3 (0.0-0.5); Eosinophils % (Auto) 4 % (0-10); Hemoglobin 11.7 g/dL (13.5-16.0); Immature Granulocytes % (Auto) 0 % (0-0); Immature Granulocytes Auto 0.03 Thou/mm3 (0.00-0.00); Lymphocytes # (Auto) 1.9 Thou/mm3 (1.0-4.8); Lymphocytes % (Auto) 20 % (10-50); Mean Corpuscular HGB Conc 34.4 g/dl (31.0-37.0); Mean Corpuscular Hemoglobin 30.5 pg (25.0-35.0); Mean Corpuscular Volume 89 fL (80-100); Monocytes # (Auto) 0.6 Thou/mm3 (0.0-0.8); Monocytes % (Auto) 7 % (0-12); Neutrophils # (Auto) 6.4 Thou/mm3 (1.8-7.7); Neutrophils % (Auto) 68 % (37-80); Nucleated Red Blood Cell % 0 /100 WBC (0); Platelet Count 207 Thou/mm3 (140-440); RDW Standard Deviation 46.5 fL (35.1-43.9); Red Blood Count 3.84 Miln/mm3 (4.50-5.90); White Blood Count 9.4 Thou/mm3 (3.8-10.6)
[2024-05-24 06:40] LABS: Alanine Aminotransferase 9 U/L (10-49); Albumin, Serum 3.5 gm/dL (3.5-5.0); Albumin/Globulin Ratio 1.1 (1.2-2.2); Alkaline Phosphatase 81 U/L (46-116); Anion Gap 9 (7-16); Aspartate Amino Transferase 13 U/L (0-34); BUN/Creatinine Ratio 15 Ratio (12-20); Bilirubin,Total 0.3 mg/dL (0.3-1.2); Blood Urea Nitrogen 60 mg/dL (9-23); Calcium 8.5 mg/dL (8.3-10.6); Calcium (Corrected) 8.9 mg/dL (8.5-10.1); Carbon Dioxide 23.7 mMol/L (20.0-31.0); Chloride 103 mMol/L (98-107); Creatinine (Component) 3.9 mg/dL (0.6-1.3); Globulin 3.2 gm/dL (2.3-3.5); Glucose 130 mg/dL (74-106); Magnesium 2.4 mg/dL (1.6-2.6); Osmolality,Calculated 290 (275-295); Phosphorous 4.4 mg/dL (2.4-5.1); Potassium 4.4 mMol/L (3.4-5.1); Sodium 136 mMol/L (136-145); Total Protein 6.7 gm/dL (5.7-8.2); eGFR 18 See Note
[2024-05-24] MEDS: ASPIRIN EC 81 MG TABEC PO (08:06)
[2024-05-24] MEDS: carVEDILOL 3.125 MG TABLET 12.5 MG PO ×2 (08:06→17:37)
[2024-05-24] MEDS: LOSARTAN POTASSIUM 25 MG TABLET 100 MG PO (08:07)
[2024-05-24] MEDS: SPIRONOLACTONE 25 MG TABLET 50 MG PO (08:08)
--- NOTE | 2024-05-24 08:33 | ESPR_ITS ---
Documentation for date of: 05/24/24 Subjective Subjective Interval history: Mr. Benjamin is a 48-year-old male PHX of resistant HTN( > 15yrs), DM, presenting with 2 days of nonexertional shortness of breath. In the ED he was found hypertensive with BP 235/142 with HR.. He said he's had resistant hypertension for years, and has been on AMLODIPINE, HYDROCHLOROTHIAZIDE and METOPROLOL, some of these medications he does not take regularly due to stomach upset. Has never had proper workup for his hypertension. He's had diabetes for greater than 2 years ultimately controlled with current A1c of 6.2. Complains of chronic blurriness from his right eye, hasn't seen an tooling engineering tech for 10 years. Denies headache, fever, chills, confusion, chest pain, cough, GI or urinary symptoms. Initially he was admitted to ICU and blood pressure was managed with NICARDIPINE after she was downgraded. Currently he is on HYDRALAZINE 10 mg, LOSARTAN 100 mg and METOPROLOL 50 mg BID with blood pressure of 165/104. He was also given SPIRONOLACTONE 25 mg x 1. Remains asymptomatic without chest pain or shortness of breath. Labs are significant for potassium 3.3, BUN 44, 3.8 > 3.7, EGFR 19, GLUCOSE 133, troponin 0.108 > 0.307, LDL 169, cholesterol 233, Hgb 11.5. U tox was negative. UA currently pending. EKG showing sinus rhythm without acute ST changes. CXR showed mild/moderate CHF. Echo showed EF 60?65 with moderate ? severe concentric LVH and severe LA dilation. Abdominal ultrasound without abnormal findings. 05/23/2024 Patient currently seen in medical floor. at bedside. Bengali interpretation used. Denies any chest pain, shortness of breath. His blood pressure 149/87. Heart rate 74. Hemoglobin 11.9, sodium 136, potassium 4.3, bicarbonate 25.2, BUN 59, creatinine 4, GFR 17, calcium 8.8, phosphorus 4.1, LFTs normal, troponin 0.18, renal ultrasound showed mild CKD changes. Renal Doppler negative for renal artery stenosis. 05/24/2024 examined at bedside. Doing well, no new complaints. Denies fever, chills, headaches, chest pain, sob, cough, GI or urinary symptoms. Renal function slightly improving, CR 3.9, GFR 18, BUN 60. BP 160/80s. Continue with current managment. Will consider HD. Exam Vital Signs Temp Pulse Resp BP Pulse Ox O2 Del Method 97.7 F 66 18 160/84 H 97 Room Air 05/24/24 08:00 05/24/24 08:08 05/24/24 08:00 05/24/24 08:08 05/24/24 08:00 05/24/24 08:00 Narrative Exam GENERAL * Normal appearing adult male, no acute distress HEENT * NCAT.?GAURAV. Oral mucosa is moist. Patent Nares NECK * Supple, nontender, no thyromegaly, no meningismus, no JVD, no step offs CHEST * RRR, no m/g/r * CTAB, no w/r/r. Symmetrical chest rise. No intercostal subcostal retraction * Atraumatic, nontender, no crepitus, symmetrical expansion. ABDOMEN * Soft, flat, nontender. No guarding/rebound tenderness/masses. * Bowel sounds presents EXTREMITIES * No edema/cyanosis.? SKIN * Warm and dry, no jaundice/rashes. NEUROMUSCULAR * No lumbar or midline, no CVA, no paraspinal muscle spasm or tenderness. * Moves all 4 extremities well, with full ROM and good CSM. * PEREZ x4, CN II-XII grossly intact. * No focal neurologic deficits. PSYCHIATRY * Normal mood and affect, cooperative, no SI or HI or hallucinations. Objective Labs 05/25/24 05:18 05/25/24 05:18 Labs: Laboratory Results - last 24 hr 05/24/24 05:49 WBC 9.4 RBC 3.84 L Hgb 11.7 L Hct 34.0 L MCV 89 MCH 30.5 MCHC 34.4 RDW Std Deviation 46.5 H Plt Count 207 Neut % (Auto) 68 Lymph % (Auto) 20 [place] % (Auto) 7 Eos % (Auto) 4 Baso % (Auto) 1 Neut # (Auto) 6.4 Lymph # (Auto) 1.9 [place] # (Auto) 0.6 Eos # (Auto) 0.4 Baso # (Auto) 0.1 Immature Gran # (Auto) 0.03 H Absolute Nucleated RBC 0.00 Immature Gran % 0 Nucleated RBC % 0 Sodium 136 Potassium 4.4 Chloride 103 Carbon Dioxide 23.7 Anion Gap 9 BUN 60 H Creatinine 3.9 H Estim Creat Clear Calc 25.0 L eGFR 18 L BUN/Creatinine Ratio 15 Glucose 130 H Calculated Osmolality 290 Calcium 8.5 Corrected Calcium 8.9 Phosphorus 4.4 Magnesium 2.4 Total Bilirubin 0.3 AST 13 ALT 9 L Alkaline Phosphatase 81 Total Protein 6.7 Albumin 3.5 Globulin 3.2 Albumin/Globulin Ratio 1.1 L Quality Measures Quality Measures VTE prophylaxis Assessment & Plan Assessment Current Active Medications: Generic Name Dose Route Start Last Admin Trade Name Freq PRN Reason Stop Dose Admin Acetaminophen 650 mg 05/21/24 04:51 Acetaminophen 325 Mg Tablet PO 06/20/24 04:50 Q4HR PRN PAIN SCALE 1-3 (mild Al Hydrox/Mg Hydrox/Simethicone 30 ml 05/21/24 04:51 Mg Hyd/Al Hyd/Mary (Maalox Reg) Susp 30 Ml Udc PO 06/20/24 04:50 Q4HR PRN Heartburn or Upset Stomach Aspirin 81 mg 05/22/24 09:00 05/24/24 08:06 Aspirin Ec 81 Mg Tabec PO 06/21/24 08:59 81 mg QDAY RAFIA Administration Atorvastatin Calcium 40 mg 05/22/24 21:00 05/23/24 21:02 Atorvastatin Calcium 20 Mg Tablet PO 06/21/24 20:59 40 mg HS RAFIA Administration Carvedilol 12.5 mg 05/24/24 08:00 05/24/24 08:06 Carvedilol 3.125 Mg Tablet PO 06/23/24 07:59 12.5 mg BIDWM RAFIA Administration Dextrose 25 ml 05/21/24 05:00 Dextrose 50%-Water Inj 50 Ml Syringe IV 06/20/24 04:59 Q15MIN PRN BG 50-70 responsive npo pt Dextrose 50 ml 05/21/24 05:00 Dextrose 50%-Water Inj 50 Ml Syringe IV 06/20/24 04:59 Q15MIN PRN BG <50 OR BG <70 & pt unresponsive Glucagon 1 mg 05/21/24 05:00 Glucagon Inj 1 Mg Vial IM Q15MIN PRN BG <70, and no IV access Heparin Sodium (Porcine) 5,000 unit 05/21/24 07:45 05/24/24 05:26 Heparin Sod Inj 5000 Unit/Ml Vial SC 06/04/24 07:44 5,000 unit Q8HR RAFIA Administration Hydralazine HCl 10 mg 05/21/24 17:34 05/23/24 14:31 Hydralazine Inj 20 Mg/Ml Vial IV 06/20/24 17:44 10 mg Q8H PRN Administration HTN Hydroxyzine HCl 10 mg 05/22/24 15:19 05/23/24 16:06 Hydroxyzine Hcl 10 Mg Tablet PO 06/21/24 15:18 10 mg Q6HR PRN Administration ANXIETY Insulin Human Lispro 0 unit 05/21/24 07:30 05/24/24 07:26 Insulin Lispro (Admelog) 1 Unit/0.01 Ml Unit SC 06/20/24 07:29 Not Given AC RAFIA Protocol Losartan Potassium 100 mg 05/22/24 10:00 05/24/24 08:07 Losartan Potassium 25 Mg Tablet PO 06/21/24 09:59 100 mg QDAY RAFIA Administration Magnesium Hydroxide 30 ml 05/21/24 04:51 Milk Of Magnesia Susp 30 Ml Udc PO 06/20/24 04:50 QDAY PRN CONSTIPATION Melatonin 3 mg 05/22/24 21:00 05/23/24 21:03 Melatonin 3 Mg Tablet PO 06/21/24 20:59 3 mg HS RAFIA Administration Nicardipine HCl 20 mg 05/23/24 08:45 05/24/24 05:24 Nicardipine 20 Mg Capsule PO 06/22/24 08:44 20 mg TID RAFIA Administration Pharmacy Consult 1 each 05/21/24 09:00 Pharmacy Renal Dose Adjustment 1 Ea XX 06/20/24 08:59 QDAY PRN PROTOCOL Spironolactone 50 mg 05/23/24 09:00 05/24/24 08:08 Spironolactone 25 Mg Tablet PO 06/22/24 08:59 50 mg QDAY RAFIA Administration Plan In summary: 48-year-old male with PMHx of DM and resistant hypertension, presenting with shortness of breath, found to have hypertension emergency and DIANA plus or minus CKD. Continue with blood pressure control as listed below. Pending renal workup as below. Kidney function improving but still poor, may need renal replacement therapy eventually. DIANA on possible CKD Resistant hypertension (controlled) Hypokalemic metabolic alkalosis (resolved) Renal function progressively worsening, likely related to progression of hypertensive/diabetic nephropathy. US showed bilateral moderate parenchymal scar formation, negative for renal artery stenosis. Echocardiogram showed severe left ventricular hypertrophy with ejection fraction 50 to 55%. Patient has LA dilation. BP controlled but remains high despite multimodal antihypertensives. Proteinuria improving, UA, currently showing trace. CR 3.9, GFR 18, BUN 60. Still possible need for hemodialysis eventually if renal function continues to decline, patient and are in agreement. ? Continue NICARDIPINE 20 mg BID ? Continue SPIRONOLACTONE to 50 mg q. day ? Continue LOSARTAN 100 mg q. day ? Continue CARVEDILOL 6.25 BID ? Continue HYDRALAZINE PRN ? Renally dose meds, avoid overdiuresis and NEPHROTOXINS ? Daily CMP ? Pending ALDOSTERONE, catecholamine, PTH, renin activity, VITAMIN D, random urine protein, uric acid, UA. New onset of Congestive Heart Failure Troponemia, likely NSTEMI type II demand ischemia T2DM Managed by primary team. Patient case was discussed with attending, Dr. Moreno. Linda Oconnell DO PGYI Attending Provider Attestation/Addendum Patient seen and examined with resident physician . Note reviewed, agree with findings and recommendations. Patient with uncontrolled hypertension for more than 15 years, diabetes for more than 15 years, dyslipidemia presented with poorly controlled hypertension. On 3 class medications at home. Last seen in the primary care physician more than a year ago. Try to review labs from [facility]-not available. Not sure what his baseline creatinine was couple of years ago. Suspect patient has progressive diabetic/hypertensive nephrosclerosis. Agree with secondary hypertension workup. Will switch amlodipine to nicardipine and increase her spironolactone.
--- NOTE | 2024-05-24 09:09 | PC.SS ---
Rounding: Possible DC home today, BP slightly elevated
--- NOTE | 2024-05-24 13:22 | PC.NURSE ---
1200- patient cardiac rhythm shows slightly elevated st segment compare to previous heart rhythms, no complaint of any chest pain or discomfort at this time, called dr. bashir and made aware.
--- NOTE | 2024-05-24 13:48 | ESPR_ITS ---
<Statement entered by Kate Mckinnon MD - 05/24/24 16:26> Patient was seen and examined at bedside. No acute overnight events. Blood pressure still running on the high end, patient currently is on Coreg 12.5 twice daily, losartan 100 daily, spironolactone 50 daily, nicardipine was increased from 20 twice daily to 20 3 times daily. Renal ultrasound revealed moderate bilateral renal parenchymal scar formation in setting of CKD. Renal artery duplex was negative for renal artery stenosis. Nephrology is on board,, creatinine still 3.9, BUN of 60, EGFR of 18. Patient is having adequate urine output, negative balance of -870, will continue monitor urine output. In context of resistant HTN and elevated Cr of 3.9,, CRRT is likely to be considered by nephrology. will f/up with recs. #Resistant HTN 1 continue coreg 12.5 BID 2. continue Losartan 100 qday 3. continue spironolactone 50 qday 4. Nicardipine 20 TID 5. F/u with nephro recs regarding CRRT I personally saw and examined the patient and discussed the assessment and plan with the entire medicine team, including my attending Dr. Ridley, Kate Mckinnon M.D. PGY-2 Disclaimer: Despite multiple revisions, due to the dictation software being used, the document bellow may not be free of grammatical errors including phonetic/typographic errors. However, this does not deter from our commitment to providing health care in the patient's best interest in mind. Documentation for date of: 05/24/24 Subjective Subjective Interval history: No overnight events. Patient's systolic blood pressure in [id number]. Patient denied chest pain or headaches. Patient denied blurry vision. Patient's carvedilol increased to 12.5 mg p.o. twice daily. Continue losartan 100 mg p.o. daily, nicardipine increased to 20 mg p.o. 3 times daily, and continue spironolactone 50 mg p.o. daily. Pending final recommendations from nephrology for possible dialysis. Exam Vital Signs Temp Pulse Resp BP Pulse Ox O2 Del Method 97.4 F 56 L 17 140/91 H 100 Room Air 05/24/24 12:00 05/24/24 13:05 05/24/24 12:00 05/24/24 13:05 05/24/24 12:00 05/24/24 12:00 Narrative Exam General Appearance: Alert & Oriented X3, well-nourished male who is lying in bed in no acute distress HEENT: Skull symmetrical and atraumatic. Conjunctivae pin and moist. Pupils equal, round, reactive to light and accommodation (PERRL). External ear without lesion or discharge. Straight, nares patient, mucosa pink, no discharge. No thyroid nodule appreciated. No cervical lymphadenopathy. Cardio: Normal Rate and Rhythm with S1 and S2 heart sounds. No murmurs or extra heart sounds auscultated. No bruits on carotid auscultation. No peripheral edema or cyanosis. Lungs: Symmetric with good expansion. Chest and back non-tender. Breath sounds vesicular without crackles, wheezing or rhonchi Abdomen: Non-tender, Non-distended, Normal Reactive Bowel Sounds Neuro: Alert, cooperative, oriented to person, place, and time. Speech clear. CN grossly intact. Upper motor strength 5/5 and Lower motor strength 5/5. Sensation intact. Objective Labs 05/24/24 05:49 05/24/24 05:49 Labs: Laboratory Results - last 24 hr 05/24/24 05:49 WBC 9.4 RBC 3.84 L Hgb 11.7 L Hct 34.0 L MCV 89 MCH 30.5 MCHC 34.4 RDW Std Deviation 46.5 H Plt Count 207 Neut % (Auto) 68 Lymph % (Auto) 20 [place] % (Auto) 7 Eos % (Auto) 4 Baso % (Auto) 1 Neut # (Auto) 6.4 Lymph # (Auto) 1.9 [place] # (Auto) 0.6 Eos # (Auto) 0.4 Baso # (Auto) 0.1 Immature Gran # (Auto) 0.03 H Absolute Nucleated RBC 0.00 Immature Gran % 0 Nucleated RBC % 0 Sodium 136 Potassium 4.4 Chloride 103 Carbon Dioxide 23.7 Anion Gap 9 BUN 60 H Creatinine 3.9 H Estim Creat Clear Calc 25.0 L eGFR 18 L BUN/Creatinine Ratio 15 Glucose 130 H Calculated Osmolality 290 Calcium 8.5 Corrected Calcium 8.9 Phosphorus 4.4 Magnesium 2.4 Total Bilirubin 0.3 AST 13 ALT 9 L Alkaline Phosphatase 81 Total Protein 6.7 Albumin 3.5 Globulin 3.2 Albumin/Globulin Ratio 1.1 L Quality Measures Quality Measures VTE prophylaxis Assessment & Plan Assessment Current Active Medications: Generic Name Dose Route Start Last Admin Trade Name Freq PRN Reason Stop Dose Admin Acetaminophen 650 mg 05/21/24 04:51 Acetaminophen 325 Mg Tablet PO 06/20/24 04:50 Q4HR PRN PAIN SCALE 1-3 (mild Al Hydrox/Mg Hydrox/Simethicone 30 ml 05/21/24 04:51 Mg Hyd/Al Hyd/Mary (Maalox Reg) Susp 30 Ml Udc PO 06/20/24 04:50 Q4HR PRN Heartburn or Upset Stomach Aspirin 81 mg 05/22/24 09:00 05/24/24 08:06 Aspirin Ec 81 Mg Tabec PO 06/21/24 08:59 81 mg QDAY RAFIA Administration Atorvastatin Calcium 40 mg 05/22/24 21:00 05/23/24 21:02 Atorvastatin Calcium 20 Mg Tablet PO 06/21/24 20:59 40 mg HS RAFIA Administration Carvedilol 12.5 mg 05/24/24 08:00 05/24/24 08:06 Carvedilol 3.125 Mg Tablet PO 06/23/24 07:59 12.5 mg BIDWM RAFIA Administration Dextrose 25 ml 05/21/24 05:00 Dextrose 50%-Water Inj 50 Ml Syringe IV 06/20/24 04:59 Q15MIN PRN BG 50-70 responsive npo pt Dextrose 50 ml 05/21/24 05:00 Dextrose 50%-Water Inj 50 Ml Syringe IV 06/20/24 04:59 Q15MIN PRN BG <50 OR BG <70 & pt unresponsive Glucagon 1 mg 05/21/24 05:00 Glucagon Inj 1 Mg Vial IM Q15MIN PRN BG <70, and no IV access Heparin Sodium (Porcine) 5,000 unit 05/21/24 07:45 05/24/24 13:07 Heparin Sod Inj 5000 Unit/Ml Vial SC 06/04/24 07:44 5,000 unit Q8HR RAFIA Administration Hydralazine HCl 10 mg 05/24/24 09:14 Hydralazine Inj 20 Mg/Ml Vial IV 06/20/24 17:44 Q8H PRN SBP > 170 Hydroxyzine HCl 10 mg 05/22/24 15:19 05/23/24 16:06 Hydroxyzine Hcl 10 Mg Tablet PO 06/21/24 15:18 10 mg Q6HR PRN Administration ANXIETY Insulin Human Lispro 0 unit 05/21/24 07:30 05/24/24 11:46 Insulin Lispro (Admelog) 1 Unit/0.01 Ml Unit SC 06/20/24 07:29 Not Given AC RAFIA Protocol Losartan Potassium 100 mg 05/22/24 10:00 05/24/24 08:07 Losartan Potassium 25 Mg Tablet PO 06/21/24 09:59 100 mg QDAY RAFIA Administration Magnesium Hydroxide 30 ml 05/21/24 04:51 Milk Of Magnesia Susp 30 Ml Udc PO 06/20/24 04:50 QDAY PRN CONSTIPATION Melatonin 3 mg 05/22/24 21:00 05/23/24 21:03 Melatonin 3 Mg Tablet PO 06/21/24 20:59 3 mg HS RAFIA Administration Nicardipine HCl 20 mg 05/23/24 08:45 05/24/24 13:05 Nicardipine 20 Mg Capsule PO 06/22/24 08:44 20 mg TID RAFIA Administration Pharmacy Consult 1 each 05/21/24 09:00 Pharmacy Renal Dose Adjustment 1 Ea XX 06/20/24 08:59 QDAY PRN PROTOCOL Spironolactone 50 mg 05/23/24 09:00 05/24/24 08:08 Spironolactone 25 Mg Tablet PO 06/22/24 08:59 50 mg QDAY RAFIA Administration Plan Patient is a 48 years old male with past medical history of hypertension and diabetes who non adherent to medication. Admitted initially on 05/21/2024 directly to ICU for hypertensive emergency and down graded overnight to floors for further management resistant hypertension. #Resistant Hypertension #DIANA on CKD Long standing history of hypertension that required 3 anit-hypertensive medication but remained in 200s for systolic BP. Patient only continued with medication for eight months, then being non-adherant. Sanket previously was on 3 anti-hypertensive medicaiton as outpatient without bieng able to control blood pressure. Patient deneid CKD history. DIANA likely secondary to pre-renal recondary to hypertensive emergency given secondary causes. CKD secondary to diabetic neropathy can not be ruled out but less likely as A1c 6.9%. DDx: Renal artery stenosis can not be ruled out vs primary aldosterone given low-normal potassium vs lexa Renal Artery Duplex: No Doppler sonographic findings of renal artery stenosis Renal U/S: Moderate bilateral renal parenchymal scar formation Plan: -Amlodipine 10 mg PO Qday D/C -Almlodpine D/C -Nicardipine 20 mg TID, Spironolactone 50 mg qday, continue Losartan 100 mg once daily -Renally dose medication -avoid nephrotoxins -Hydralazine 10 mg Q8HR PRN -Per Nephorlology: Alosterone, Catecholamine, PTH, Renin Acitivity, Vitamin D, random urine protien creatine, uric acid, UA -Consult nephrology, appreciate recommendations, Dr. Moreno #New onset of Congestive Heart Failure #CHFpEF Etiology: CHF likely secondary to cardiomyopathy from long standing HTN. BNP 803 on admission. DDx: less likely secondary to infectious cause vs TN Lipid Panel: Cholesterol 233 Triglycerides 107, LDL 169, HDL 43 NYHA Class: II ASCVD 21.1%-high intensity Echo: Normal zie and function with estimated at 60-65%. Moderate to severe concentric LVH. Diastolic dysfucntion stage I. Plan: -Carvedilol 12.5 mg PO BID -Add Aspirin 81 mg once a day -Atorvastatin 40 mg HS -Work toward GDMT -K>4 and Mg >2 -SpO <90%, support PRN -Daily Weights, Strict Ins and Outs, Fluid Striction (1500), Sodium Restriction 2 grams per day (AM) #Diabetes Mellitus Type II, non insulin dependent Patient usually does not check blood glucose at home. Patient's home medication of Metformin, non-adherant at times. Diagnostics: A1c 6.2% w/ Glucose of 155 (05/21/2024) Total Sliding sclae given overnight none Plan: -Stop Metformin as outpatine given GFR <30 -Sliding Scale -Monitor fasting blood glucose #Normocytic Anemia no acute intervention #Hypertensive Emergency, Resolved. #Troponemia, likely NSTEMI type II demand ischemia, resolved. #Leukocytosis, resolved. Health Maintenance: Disp: Pt is currently admitted to floors for further management of diabetes mellitus and hypertension, possible dialysis FEN: low carb consistent DVT: on subQ heparin Code: Full Code - The patient's plan was discussed with attending Dr. Khai Macias MD PGY1 Internal Medicine Attending Provider Attestation/Addendum I have discussed and was present for the essential components of the history, physical examination, diagnosis, and treatment plan with the resident. I agree with the patient's care as documented by the resident and amended herein by me. Faustino Ridley DO. Patient seen and evaluated this AM. In short, 48-year-old male with significant past medical history of Hypertension and diabetes, presented to the ED for shortness of breath initially admitted to the ICU for hypertensive emergency on nicardipine drip. Patient transferred back to the floor on 05/22. Nephrology consulted for renal failure, patient likely has CKD from hypertensive nephrosclerosis versus diabetic nephropathy. Nephrology consulted, BP medication regiment modified, patient presently on Coreg 12.5 mg twice daily, losartan 100 mg daily, spironolactone 50 mg daily and nicardipine 20 mg 3 times daily. Nephrology consulted, will continue to monitor, patient may need dialysis and they are aware however waiting for nephrology recommendations. We also did a workup for secondary causes of hypertension considering resistance, imaging thus far to include renal ultrasound and renal arterial Doppler ultrasound have been negative. Renin, aldosterone and other labs pending appreciate specialist recommendations, will continue to monitor closely. Although this document has been carefully reviewed, there may still be some phonetic and other typographical errors. These errors are purely grammatical due to imperfections in the software program and should not be construed in any way to compromise the substance of the patient's medical care during this visit.
[2024-05-24] MEDS: ATORVASTATIN CALCIUM 20 MG TABLET 40 MG PO (21:03)
[2024-05-24] MEDS: MELATONIN 3 MG TABLET PO (21:03)
[2024-05-25] VITALS (9 sets, daily range): BP systolic 132–156; BP diastolic 79–100; PULSE 46–60; RESP 16–18; TEMP 36.1–36.7; O2SAT 97–100; BMI 39.8
[2024-05-25] MEDS: niCARdipine 20 MG CAPSULE PO (05:14)
[2024-05-25] MEDS: HEPARIN SOD INJ 5000 UNIT/ML VIAL SC (05:14)
[2024-05-25 05:42] LABS: Basophils # (Auto) 0.1 Thou/mm3 (0.0-0.2); Basophils % (Auto) 1 % (0-2.5); Eosinophils # (Auto) 0.3 Thou/mm3 (0.0-0.5); Eosinophils % (Auto) 3 % (0-10); Hemoglobin 11.2 g/dL (13.5-16.0); Immature Granulocytes % (Auto) 0 % (0-0); Immature Granulocytes Auto 0.03 Thou/mm3 (0.00-0.00); Lymphocytes % (Auto) 22 % (10-50); Mean Corpuscular HGB Conc 33.9 g/dl (31.0-37.0); Mean Corpuscular Hemoglobin 30.4 pg (25.0-35.0); Mean Corpuscular Volume 89 fL (80-100); Monocytes # (Auto) 0.7 Thou/mm3 (0.0-0.8); Monocytes % (Auto) 7 % (0-12); Neutrophils # (Auto) 6.2 Thou/mm3 (1.8-7.7); Neutrophils % (Auto) 67 % (37-80); Nucleated Red Blood Cell % 0 /100 WBC (0); Platelet Count 206 Thou/mm3 (140-440); RDW Standard Deviation 46.1 fL (35.1-43.9); Red Blood Count 3.69 Miln/mm3 (4.50-5.90); White Blood Count 9.3 Thou/mm3 (3.8-10.6)
[2024-05-25 06:01] LABS: Alanine Aminotransferase 21 U/L (10-49); Albumin, Serum 3.5 gm/dL (3.5-5.0); Albumin/Globulin Ratio 1.1 (1.2-2.2); Alkaline Phosphatase 79 U/L (46-116); Anion Gap 8 (7-16); Aspartate Amino Transferase 26 U/L (0-34); BUN/Creatinine Ratio 16 Ratio (12-20); Bilirubin,Total 0.3 mg/dL (0.3-1.2); Blood Urea Nitrogen 61 mg/dL (9-23); Calcium 8.6 mg/dL (8.3-10.6); Carbon Dioxide 24.5 mMol/L (20.0-31.0); Chloride 103 mMol/L (98-107); Creatinine (Component) 3.9 mg/dL (0.6-1.3); Estimated Creatinine Clearance 25.2 mL/min (>60); Globulin 3.1 gm/dL (2.3-3.5); Glucose 122 mg/dL (74-106); Magnesium 2.5 mg/dL (1.6-2.6); Osmolality,Calculated 288 (275-295); Phosphorous 4.5 mg/dL (2.4-5.1); Potassium 4.9 mMol/L (3.4-5.1); Sodium 135 mMol/L (136-145); Total Protein 6.6 gm/dL (5.7-8.2); eGFR 18 See Note
--- NOTE | 2024-05-25 08:57 | ESPR_ITS ---
Documentation for date of: 05/25/24 Subjective Subjective Interval history: Mr. Benjamin is a 48-year-old male PHX of resistant HTN( > 15yrs), DM, presenting with 2 days of nonexertional shortness of breath. In the ED he was found hypertensive with BP 235/142 with HR.. He said he's had resistant hypertension for years, and has been on AMLODIPINE, HYDROCHLOROTHIAZIDE and METOPROLOL, some of these medications he does not take regularly due to stomach upset. Has never had proper workup for his hypertension. He's had diabetes for greater than 2 years ultimately controlled with current A1c of 6.2. Complains of chronic blurriness from his right eye, hasn't seen an broker associate for 10 years. Denies headache, fever, chills, confusion, chest pain, cough, GI or urinary symptoms. Initially he was admitted to ICU and blood pressure was managed with NICARDIPINE after she was downgraded. Currently he is on HYDRALAZINE 10 mg, LOSARTAN 100 mg and METOPROLOL 50 mg BID with blood pressure of 165/104. He was also given SPIRONOLACTONE 25 mg x 1. Remains asymptomatic without chest pain or shortness of breath. Labs are significant for potassium 3.3, BUN 44, 3.8 > 3.7, EGFR 19, GLUCOSE 133, troponin 0.108 > 0.307, LDL 169, cholesterol 233, Hgb 11.5. U tox was negative. UA currently pending. EKG showing sinus rhythm without acute ST changes. CXR showed mild/moderate CHF. Echo showed EF 60?65 with moderate ? severe concentric LVH and severe LA dilation. Abdominal ultrasound without abnormal findings. 05/23/2024 Patient currently seen in medical floor. at bedside. Armenian interpretation used. Denies any chest pain, shortness of breath. His blood pressure 149/87. Heart rate 74. Hemoglobin 11.9, sodium 136, potassium 4.3, bicarbonate 25.2, BUN 59, creatinine 4, GFR 17, calcium 8.8, phosphorus 4.1, LFTs normal, troponin 0.18, renal ultrasound showed mild CKD changes. Renal Doppler negative for renal artery stenosis. 05/24/2024 examined at bedside. Doing well, no new complaints. Denies fever, chills, headaches, chest pain, sob, cough, GI or urinary symptoms. Renal function slightly improving, CR 3.9, GFR 18, BUN 60. BP 160/80s. Continue with current managment. Will consider HD. 05/25/2024 examined at bed side. No new complaints or worsening symptoms. Denies fever, chills, headaches, chest pain, sob, cough, GI or urinary symptoms. BP still elvated. Will discharge home with current meds in addition to CLONIDINE 0.1 mg BID as needed if BP>160/90. Exam Vital Signs Temp Pulse Resp BP Pulse Ox O2 Del Method 97.1 F 56 L 16 153/88 H 99 Room Air 05/25/24 07:57 05/25/24 07:57 05/25/24 07:57 05/25/24 07:57 05/25/24 07:57 05/25/24 07:57 Narrative Exam GENERAL * Normal appearing adult male, no acute distress HEENT * NCAT.?GAURAV. Oral mucosa is moist. Patent Nares NECK * Supple, nontender, no thyromegaly, no meningismus, no JVD, no step offs CHEST * RRR, no m/g/r * CTAB, no w/r/r. Symmetrical chest rise. No intercostal subcostal retraction * Atraumatic, nontender, no crepitus, symmetrical expansion. ABDOMEN * Soft, flat, nontender. No guarding/rebound tenderness/masses. * Bowel sounds presents EXTREMITIES * No edema/cyanosis.? SKIN * Warm and dry, no jaundice/rashes. NEUROMUSCULAR * No lumbar or midline, no CVA, no paraspinal muscle spasm or tenderness. * Moves all 4 extremities well, with full ROM and good CSM. * PEREZ x4, CN II-XII grossly intact. * No focal neurologic deficits. PSYCHIATRY * Normal mood and affect, cooperative, no SI or HI or hallucinations. Objective Labs 05/25/24 05:18 05/25/24 05:18 Labs: Laboratory Results - last 24 hr 05/25/24 05:18 WBC 9.3 RBC 3.69 L Hgb 11.2 L Hct 33.0 L MCV 89 MCH 30.4 MCHC 33.9 RDW Std Deviation 46.1 H Plt Count 206 Neut % (Auto) 67 Lymph % (Auto) 22 Hays % (Auto) 7 Eos % (Auto) 3 Baso % (Auto) 1 Neut # (Auto) 6.2 Lymph # (Auto) 2.0 Hays # (Auto) 0.7 Eos # (Auto) 0.3 Baso # (Auto) 0.1 Immature Gran # (Auto) 0.03 H Absolute Nucleated RBC 0.00 Immature Gran % 0 Nucleated RBC % 0 Sodium 135 L Potassium 4.9 D Chloride 103 Carbon Dioxide 24.5 Anion Gap 8 BUN 61 H Creatinine 3.9 H Estim Creat Clear Calc 25.2 L eGFR 18 L BUN/Creatinine Ratio 16 Glucose 122 H Calculated Osmolality 288 Calcium 8.6 Corrected Calcium 9.0 Phosphorus 4.5 Magnesium 2.5 Total Bilirubin 0.3 AST 26 ALT 21 Alkaline Phosphatase 79 Total Protein 6.6 Albumin 3.5 Globulin 3.1 Albumin/Globulin Ratio 1.1 L Quality Measures Quality Measures VTE prophylaxis Assessment & Plan Assessment Current Active Medications: Generic Name Dose Route Start Last Admin Trade Name Freq PRN Reason Stop Dose Admin Acetaminophen 650 mg 05/21/24 04:51 Acetaminophen 325 Mg Tablet PO 06/20/24 04:50 Q4HR PRN PAIN SCALE 1-3 (mild Al Hydrox/Mg Hydrox/Simethicone 30 ml 05/21/24 04:51 Mg Hyd/Al Hyd/Mary (Maalox Reg) Susp 30 Ml Udc PO 06/20/24 04:50 Q4HR PRN Heartburn or Upset Stomach Aspirin 81 mg 05/22/24 09:00 05/24/24 08:06 Aspirin Ec 81 Mg Tabec PO 06/21/24 08:59 81 mg QDAY RAFIA Administration Atorvastatin Calcium 40 mg 05/22/24 21:00 05/24/24 21:03 Atorvastatin Calcium 20 Mg Tablet PO 06/21/24 20:59 40 mg HS RAFIA Administration Carvedilol 12.5 mg 05/24/24 08:00 05/24/24 17:37 Carvedilol 3.125 Mg Tablet PO 06/23/24 07:59 12.5 mg BIDWM RAFIA Administration Dextrose 25 ml 05/21/24 05:00 Dextrose 50%-Water Inj 50 Ml Syringe IV 06/20/24 04:59 Q15MIN PRN BG 50-70 responsive npo pt Dextrose 50 ml 05/21/24 05:00 Dextrose 50%-Water Inj 50 Ml Syringe IV 06/20/24 04:59 Q15MIN PRN BG <50 OR BG <70 & pt unresponsive Glucagon 1 mg 05/21/24 05:00 Glucagon Inj 1 Mg Vial IM Q15MIN PRN BG <70, and no IV access Heparin Sodium (Porcine) 5,000 unit 05/21/24 07:45 05/25/24 05:14 Heparin Sod Inj 5000 Unit/Ml Vial SC 06/04/24 07:44 5,000 unit Q8HR RAFIA Administration Hydralazine HCl 10 mg 05/24/24 09:14 Hydralazine Inj 20 Mg/Ml Vial IV 06/20/24 17:44 Q8H PRN SBP > 170 Hydroxyzine HCl 10 mg 05/22/24 15:19 05/23/24 16:06 Hydroxyzine Hcl 10 Mg Tablet PO 06/21/24 15:18 10 mg Q6HR PRN Administration ANXIETY Insulin Human Lispro 0 unit 05/21/24 07:30 05/25/24 07:19 Insulin Lispro (Admelog) 1 Unit/0.01 Ml Unit SC 06/20/24 07:29 Not Given AC RAFIA Protocol Losartan Potassium 100 mg 05/22/24 10:00 05/24/24 08:07 Losartan Potassium 25 Mg Tablet PO 06/21/24 09:59 100 mg QDAY RAFIA Administration Magnesium Hydroxide 30 ml 05/21/24 04:51 Milk Of Magnesia Susp 30 Ml Udc PO 06/20/24 04:50 QDAY PRN CONSTIPATION Melatonin 3 mg 05/22/24 21:00 05/24/24 21:03 Melatonin 3 Mg Tablet PO 06/21/24 20:59 3 mg HS RAFIA Administration Nicardipine HCl 20 mg 05/23/24 08:45 05/25/24 05:14 Nicardipine 20 Mg Capsule PO 06/22/24 08:44 20 mg TID RAFIA Administration Pharmacy Consult 1 each 05/21/24 09:00 Pharmacy Renal Dose Adjustment 1 Ea XX 06/20/24 08:59 QDAY PRN PROTOCOL Spironolactone 50 mg 05/23/24 09:00 05/24/24 08:08 Spironolactone 25 Mg Tablet PO 06/22/24 08:59 50 mg QDAY RAFIA Administration Plan In summary: 48-year-old male with PMHx of DM and resistant hypertension, presenting with shortness of breath, found to have hypertension emergency and DIANA plus or minus CKD. Continue with blood pressure control as listed below. Pending renal workup as below. No improvement in renal function, maybe his baseline. BP still elevated. Will discharge with current medications and will add CLONIDINE 0.1 mg BID PRN, CKD stage IV Resistant hypertension (controlled) Hypokalemic metabolic alkalosis (resolved) Renal function progressively worsening, likely related to progression of hypertensive/diabetic nephropathy. US showed bilateral moderate parenchymal scar formation, negative for renal artery stenosis. Echocardiogram showed severe left ventricular hypertrophy with ejection fraction 50 to 55%. Patient has LA dilation. BP controlled but remains high despite multimodal antihypertensives. Proteinuria improving, UA, currently showing trace. Renal function not improved, maybe new baseline, CR 3.9, GFR 18 Still possible need for hemodialysis eventually if renal function continues to decline, patient and are in agreement. ? Continue NICARDIPINE 20 mg BID ? Continue SPIRONOLACTONE to 50 mg q. day ? Continue LOSARTAN 100 mg q. day ? Continue CARVEDILOL 6.25 BID ? Stated CLONIDINE 0.1 mg PRN if BP >160/90 after all other meds. ? Renally dose meds, avoid overdiuresis and NEPHROTOXINS ? Daily CMP ? Pending ALDOSTERONE, catecholamine, PTH, renin activity, VITAMIN D, random urine protein, uric acid, UA. New onset of Congestive Heart Failure Troponemia, likely NSTEMI type II demand ischemia T2DM Managed by primary team. Patient case was discussed with attending, Dr. Moreno. Linda Oconnell, DO PGYI Attending Provider Attestation/Addendum Patient seen and examined with resident physician . Note reviewed, agree with findings and recommendations. Patient with uncontrolled hypertension for more than 15 years, diabetes for more than 15 years, dyslipidemia presented with poorly controlled hypertension. On 3 class medications at home. Last seen in the primary care physician more than a year ago. Try to review labs from [facility]-not available. Not sure what his baseline creatinine was couple of years ago. Suspect patient has progressive diabetic/hypertensive nephrosclerosis. Agree with secondary hypertension workup. Will switch amlodipine to nicardipine and increase her spironolactone. Creatinine seems to be stable. No need for emergency dialysis.
[2024-05-25] MEDS: SPIRONOLACTONE 25 MG TABLET 50 MG PO (09:04)
[2024-05-25] MEDS: ASPIRIN EC 81 MG TABEC PO (09:05)
[2024-05-25] MEDS: carVEDILOL 3.125 MG TABLET 12.5 MG PO (09:05)
[2024-05-25] MEDS: LOSARTAN POTASSIUM 25 MG TABLET 100 MG PO (09:05)
--- NOTE | 2024-05-25 15:30 | ESDS_ITS ---
<Statement entered by Jaimie Paulson MD - 05/30/24 15:08> I reviewed above note and agree with findings and plans. I have also personally examined the patient with medicine team and went over assessment and plan with medical team including civil engineering intern and resident physician. Discharge time more than 30 minutes. <Statement entered by Kate Mckinnon MD - 05/25/24 15:35> I discussed with and supervised the civil engineering intern physician who took care of this patient. I personally saw and examined the patient and discussed the assessment and plan with the entire medicine team, including my attending , I agree with the assessment and plan as documented below Kate Mckinnon M.D. PGY-2 Disclaimer: Despite multiple revisions, due to the dictation software being used, the document bellow may not be free of grammatical errors including phonetic/typographic errors. However, this does not deter from our commitment to providing health care in the patient's best interest in mind. Planned Discharge Date 05/25/24 DS: Providers Provider Date of admission: 05/21/24 04:53 Primary care physician: Physician No Primary/Family Admitting Provider: Pat Kim MD Attending Provider on Admission: Layo Ridley DO Consults: 05/21/24 05:01 Referral Registered Dietitian Routine Comment: 05/22/24 10:42 Consult to Nephrology Routine Comment: likely secondary HTN as he was on 3 BP meds Consulting Provider: Floresita Moreno 05/24/24 11:38 Referral Registered Dietitian Routine Comment: Attending Provider on DC: Violet Macias MD Discharging Provider: Violet Macias MD DS: Diagnosis Problem List Completed Was Problem List Reviewed/Reconciled?: Yes Hospital Course Hospital Course Hospital course: Patient is a 48 years old male with past medical history of hypertension and diabetes who non adherent to medication. Admitted initially on 05/21/2024 directly to ICU for hypertensive emergency and down graded overnight to floors for further management resistant hypertension and who was started on several medications anti-hypertensive medication. Stop metformin as GFR <30, consider insulin as outpatient. ER Course: In the ED, he was found to have blood pressure of systolic up to 239 and diastolic up to 150. Rest of the vitals were within normal limits and he is saturating well on room air. Lab results are significant for WBC of 11.1, BUN/creatinine of 43/3.8, glucose 155, troponin 0.110 and BNP 803. Chest x-ray was done, which shows vascular congestion. EKG was done which shows mild elevat ion in ST on V3 and V4. Cardiology was contacted at [facility] by ED, who did not feel the patient is having an NSTEMI. Patient was started on labetalol 20 mg IV push in the ED without improvement in blood pressure. He was then started on nicardipine drip in the ED. Patient also received a dose of aspirin 325 and Lasix 80 mg IV. Hospital Course: Patient was admitted overnight on 05/21/2024 for hypertensive emergency w/ a BP of 239/150 with elevated troponin and BNP of 803. EKG showed mild V3 and V1 but not 1mm w/ no reciprol leads. Chest x-ray showed mild to moderate CHF, mild enlargement of heart, and prominent vascular congestion. Denied chest pain. Elevated troponin trended down. Patient was started on Nicardipine drip after after being admitted directly to the ICU. Echo CHFpEF of 60-65% w/ moderate to severe concentric LVH w/ Diastolic dysfunciton. RVSP 35-40. Nephrology consulted. Patient started on Losartan, nicardipine, Spironolactone, and Carvedilol to cover for congestive heart failure as well. DIANA on CKD noted on labs with elevated Cr 3.8, BUN 44, and GFR 18. Patient's DIANA on CKD had mild improvement with BUN 60, Cr 3.9, and GFR 18. Patient is still producing urine. Pending labs for secondary causes of hypertension, please follow up. Renal US showed bilateral scaring. Renal artery duplex showed no renal stenosis. Patient was discharged on Losartan, Nicardipine, and Carvedilol w/ Clonidine PRN. Adviced to follow up w/ [facility]. Instructions: -Start new medication of Aspirin 81 mg PO QDay -Start new medication of Atorvastatin 40 mg at night for cholesterol -Start new medication of carvedilol 12.5 mg orally twice a day for your heart and blood pressure -new medication of nicardipine 20 mg TID for blood pressure, if still hypertensive consider increasin nicardipine 20 mg TID -Resume Losartan at 100 mg once daily for blood pressure -Please take Clonidine 0.1 mg twice daily NEEDED for elevated blood pressure >160/110 -STOP Metformin, given your kidney function. Follow up with your primary care provider to make adjusts for diabetes. -Please measure you blood pressure daily and follow up with your primary doctor with readings -Please continue your diabetic medication -Please follow up with your primary care provider within one week of discharge and Exercise Manager, Dr. Moreno -If your symptoms worsen,please seek immediate medical attention and return to your nearest emergency room -If you do not have a primary care provider, you may follow up at the [facility] at [address] [place] [address] [address], [place] [address], #Resistant Hypertension, improving #DIANA on CKD #New onset of Congestive Heart Failure, resolved #CHFpEF 60-65% #Normocytic Anemia #Diabetes Mellitus Type II, non insulin dependent #Hypertensive Emergency, Resolved. #Troponemia, likely NSTEMI type II demand ischemia, resolved. #Leukocytosis, resolved. - The patient's plan was discussed with attending Dr. Paulson and senior residents Dr. Pratibha Macias MD PGY1 Internal Medicine Time Spent with Patient Time attestation: Total time spent providing and/or coordinating discharge services: at least 30 minutes of care and coordination Exam Vital Signs Temp Pulse Resp BP Pulse Ox O2 Del Method 97.3 F 59 L 16 148/92 H 100 Room Air 05/25/24 11:41 05/25/24 11:41 05/25/24 11:41 05/25/24 11:41 05/25/24 11:41 05/25/24 11:41 Narrative Exam General Appearance: Alert & Oriented X3, well-nourished male who is lying in bed in no acute distress HEENT: Skull symmetrical and atraumatic. Conjunctivae pin and moist. Pupils equal, round, reactive to light and accommodation (PERRL). External ear without lesion or discharge. Straight, nares patient, mucosa pink, no discharge. No thyroid nodule appreciated. No cervical lymphadenopathy. Cardio: Normal Rate and Rhythm with S1 and S2 heart sounds. No murmurs or extra heart sounds auscultated. No bruits on carotid auscultation. No peripheral edema or cyanosis. Lungs: Symmetric with good expansion. Chest and back non-tender. Breath sounds vesicular without crackles, wheezing or rhonchi Abdomen: Non-tender, Non-distended, Normal Reactive Bowel Sounds Neuro: Alert, cooperative, oriented to person, place, and time. Speech clear. CN grossly intact. Upper motor strength 5/5 and Lower motor strength 5/5. Sensation intact. Discharge Plan Plan Patient Disposition: HOME (Self Care) Care Plan Goals: Instructions: -Start new medication of Aspirin 81 mg PO QDay -Start new medication of Atorvastatin 40 mg at night for cholesterol -Start new medication of carvedilol 12.5 mg orally twice a day for your heart and blood pressure -new medication of nicardipine 20 mg TID for blood pressure, if still hypertensive consider increasin nicardipine 20 mg TID -Resume Losartan at 100 mg once daily for blood pressure -Please take Clonidine 0.1 mg twice daily NEEDED for elevated blood pressure >160/110 -STOP Metformin, given your kidney function. Follow up with your primary care provider to make adjusts for diabetes. -Please measure you blood pressure daily and follow up with your primary doctor with readings -Please continue your diabetic medication -Please follow up with your primary care provider within one week of discharge and Exercise Manager, Dr. Moreno -If your symptoms worsen,please seek immediate medical attention and return to your nearest emergency room -If you do not have a primary care provider, [facility] [address], [place] [address], Prescriptions/Referrals Prescriptions/Med Rec: New atorvastatin 40 mg tablet 40 mg PO QPM Qty: 14 0RF aspirin 81 mg capsule 81 mg PO QDAY Qty: 14 0RF carvedilol 12.5 mg tablet 12.5 mg PO BID Qty: 14 0RF Rx Instructions: must administer with a meal/food nicardipine 20 mg capsule 20 mg PO TID Qty: 14 0RF losartan 100 mg tablet 100 mg PO QDAY Qty: 14 0RF spironolactone 50 mg tablet 50 mg PO QDAY 30 Days Qty: 30 0RF clonidine HCl 0.1 mg tablet 0.1 mg PO BID PRN (Reason: hypertensive emergency) 14 Days Qty: 28 0RF Rx Instructions: Please take twice a day as needed for BP >160/110 Discontinued losartan 100 mg Tablet 100 mg PO DAILY metformin 500 mg Tablet 500 mg PO BIDAC Qty: 60 0RF atorvastatin 10 mg Tablet 10 mg PO HS Qty: 30 0RF amlodipine 5 mg Tablet 10 mg PO QDAY Qty: 30 0RF losartan 25 mg Tablet 100 mg PO QDAY Qty: 30 0RF hydrochlorothiazide 12.5 mg Capsule 25 mg PO QDAY Qty: 30 0RF metoprolol tartrate 25 mg Tablet 50 mg PO BID Qty: 60 0RF aspirin [Adult Low Dose Aspirin] 81 mg tablet,delayed release (DR/EC) 81 mg PO QDAY Qty: 30 0RF Referrals: No Primary/Family,Physician [Primary Care Provider] - Floresita Moreno MD [Physician] - Patient/Caregiver Discharge Instructions Education Materials: Acute Kidney Failure Dc, Blood Pressure Check Steps Print Language: Anguillan Stand Alone Forms: Sylwia Award Info., Patient Portal Info Letter Discharge Order Discharge Orders: Discharge (Routine); Ordered 05/25/24 Ordered By: Violet Macias Quality Discharge Quality Measures VTE prophylaxis
[2024-05-31 06:38] LABS: Aldosterone* 9 ng/dL; Vitamin D,1,25 (OH)2,Total 34 pg/mL (18-72); Vitamin D2, 1,25 (OH)2 <8 pg/mL; Vitamin D3, 1,25 (OH)2 34 pg/mL
[2024-06-01 06:34] LABS: Renin Activity, Plasma* 8.08 ng/mL/h (0.25-5.82)
== END 2024-05-25 12:40 | disposition home or self-care (01) | DRG 199 ==
LOC: SERX 05-21 04:07 → S2SX 05-21 07:25 → S2NX 05-24 07:11 → SERHOLD 05-25 11:03 → S2SX 05-25 11:04 → S2NX 05-25 11:04 → S2SX 05-25 11:04
PROVIDERS: Internal Medicine; Physician Assistant; Admitting Provider Student in an Organized Health Care Education/Training Program; Emergency Provider Emergency Medicine; Visit Provider Student in an Organized Health Care Education/Training Program
DX: I16.1 Hypertensive emergency (principal); I1A.0 Resistant hypertension; I13.0 Hypertensive heart and chronic kidney disease with heart failure and stage 1 through stage 4 chronic kidney disease, or unspecified chronic kidney disease; N18.4 Chronic kidney disease, stage 4 (severe); I50.30 Unspecified diastolic (congestive) heart failure; I21.A1 Myocardial infarction type 2; D63.1 Anemia in chronic kidney disease; N17.9 Acute kidney failure, unspecified; E11.22 Type 2 diabetes mellitus with diabetic chronic kidney disease; E87.3 Alkalosis; E87.6 Hypokalemia; E78.5 Hyperlipidemia, unspecified; I25.10 Atherosclerotic heart disease of native coronary artery without angina pectoris; I42.9 Cardiomyopathy, unspecified; Z79.84 Long term (current) use of oral hypoglycemic drugs; Z79.899 Other long term (current) drug therapy; Z91.148 Patient's other noncompliance with medication regimen for other reason
CPT/HCPCS: 36415; 71045; 76705; 76770; 80053; 80061; 80307; 81001; 82043; 82088; 82306; 82384; 82570; 82652; 83036; 83735; 83880; 83970; 84100; 84145; 84156; 84244; 84484; 84550; 85025; 85610; 85730; 86850; 86900; 86901; 87040; 87081; 87400; 87811; 93005; 93225; 93306; 93975; 96365; 96366; 96374; 96375; 99291; 99292; J0360; J0696; J1643; J1815; J1938; J2404; J3480; J3490; A9270; J1920

== ENCOUNTER 2024-07-18 19:44 | Emergency (ER) | payer SELFPAY ==
--- NOTE | 2024-07-18 19:53 | PC.NURSE ---
stroke consult Case # [id number]
--- NOTE | 2024-07-18 19:54 | PD.EDNEURO ---
Neuro Symptoms Deficit-RME/HPI General Chief Complaint: General Adult/Misc Complain Stated Complaint: FACIAL DROOPING Time Seen by Provider: 07/18/24 19:51 Arrival date/time: 07/18/24 19:44 RME / HPI RME / HPI Narrative: Dr. Gupta?s Main ED Evaluation: 48yo male with a history of DM, HTN BIB his daughter presents to the ED for a chief complaint of facial drooping. Stroke alert was initiated in the lobby. Daughter states the patient started having left-sided facial drooping at 0700. Daughter states the patient was unsteady on his feet , had right-sided facial numbness, dizziness (felt like the room was spinning), and was vomiting. Daughter states the patient has not been eating well, noting the patient vomits when he attempts to drink water. Patient denies any numbness or tingling to his upper or lower extremities. Denies any diarrhea, fever, chills or any other associated symptoms. NKA. Related Data Previous Rx's ?Medication ?Instructions ?Recorded aspirin 81 mg capsule 81 mg PO QDAY #14 caps 05/24/24 atorvastatin 40 mg tablet 40 mg PO QPM #14 tabs 05/24/24 carvedilol 12.5 mg tablet 12.5 mg PO BID #14 tabs 05/24/24 losartan 100 mg tablet 100 mg PO QDAY #14 tabs 05/24/24 nicardipine 20 mg capsule 20 mg PO TID #14 caps 05/24/24 Allergies Allergy/AdvReac Type Severity Reaction Status Date / Time No Known Allergies Allergy Verified 07/18/24 19:54 Review of Systems Review of Systems Systems Reviewed: All systems reviewed, normal except as documented ED Exam Narrative Physical exam: GENERAL APPEARANCE: alert and oriented x 4, well-developed, well-nourished, no acute distress VITALS: All vitals were reviewed and the pulse ox is 98% on room air, which is normal according to my interpretation. HEENT: Normocephalic, atraumatic; pupils equal, round, reactive to light; EOMI; fine rotatory nystagmus that is not exacerbated with movement; mucous membranes pink, moist; oropharynx clear NECK: Supple LUNGS: CTABL; no wheezes, no rales, no rhonchi HEART: Regular rate, regular rhythm; normal S1, S2; no murmurs ABDOMEN: non distended; normal BS; soft, no tenderness, no guarding, no rebound; no masses, no organomegaly, no hernia BACK: no CVA tenderness EXTREMITIES: atraumatic; no edema NEUROLOGIC: awake; alert and oriented x4; left-sided facial paralysis involving the forehead, paresthesia to the right side of the face; left-sided dysmetria, left dysdiadochokinesia; no intention tremor, steccato speech PSYCHIATRIC: appropriate mood and affect SKIN: warm, dry, normal color; no rashes Course Quality Measures Suspected type of Stroke: Hemmorrhagic Tenecteplase given: Reason(s) TPA not given: Acute bleeding diathesis not given stroke Orders Category Date Time Status Bedside Blood Glucose NOW Care 07/18/24 19:55 Active Ap Operator NOW Care 07/18/24 19:55 Active Continuous Pulse Oximetry NOW Care 07/18/24 19:55 Completed EKG (ED ONLY) *Do not use* NOW Care 07/18/24 19:55 Completed In and Out Catheter NEEDED Care 07/18/24 19:55 Active Insert IV NOW Care 07/18/24 19:55 Active NIH Stroke Scale now Care 07/18/24 19:55 Active NPO NOW Care 07/18/24 19:55 Active Nurse Swallow Screen x1 Care 07/18/24 19:55 Active Consult to Neurology / Tele-Neurology Routine Cons 07/18/24 19:[address] angio stroke protocol Stat Exams 07/18/24 19:[address] stroke protocol Stat Exams 07/18/24 19:55 Completed EKG (ED Only) Stat Exams 07/18/24 19:55 Ordered Alcohol, Blood Medical Stat Lab 07/18/24 19:59 Completed CBC Stat Lab 07/18/24 19:59 Completed Comprehensive Metabolic Panel Stat Lab 07/18/24 19:59 Completed Drug Screen,Urine Stat Lab 07/18/24 19:55 Ordered Magnesium Stat Lab 07/18/24 19:59 Completed Partial Thromboplastin Time Stat Lab 07/18/24 19:59 Completed Prothrombin Time with INR Stat Lab 07/18/24 19:59 Completed Troponin I Stat Lab 07/18/24 19:59 Completed Urinalysis Stat Lab 07/18/24 19:55 Ordered Nicardipine/Ns 20Mg Ivpb [Cardene Ivpb] Med 07/18/24 20:37 Active 20 mg in 200 ml IV 5 mg/hr Vital Signs Vital signs: Vital Signs Temperature 98.7 F 07/18/24 20:06 Pulse Rate 89 07/18/24 20:06 Respiratory Rate 18 07/18/24 20:06 Pulse Oximetry (%) 98 07/18/24 20:06 Oxygen Delivery Method Room Air 07/18/24 20:06 Neuro Symptoms / Deficit MDM Narrative MDM Narrative:: Scribe Attestation: 07/18/24 - Aliza Medina, yamile scribing for and in the presence of Dr. Gupta. 2018: Dr. Riley, our radiologist, called to inform me that the patient has a bleed. Awaiting report at this time. 2021: CT head report shows 6 mm acute brainstem hemorrhage. Transfer process initiated. 2031: Discussed case with [Dr.] from teleneurology regarding consultation. Discussed patients ED course, exam findings, labs, and radiology results. Does not recommend tPA due to the patient having a brainstem hemorrhage. Recommends transferring the patient for neurosurgery and maintaining the patient's blood pressure between 140-160 systolically. 2033: Discussed case with [facility]'s transfer center. Discussed patients ED course, exam findings, labs, and radiology results. Discussed woth Dr. Warren, neurosurgeon, accepts the patient for ED-ED transfer. Recommends nicardipine drip with a systolic goal of 160. 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 Patient data External records reviewed:: [facility] previous records (Per chart review, patient was admitted here on 05/20/24 for acute renal failure. ) Clinical information provided by:: patient and family (daughter) Social determinants that could affect healthcare access:: none Patient has the following chronic illnesses:: DM, HTN How is presenting disease/condition affected by chronic disease/condition?: uneffected by Evaluation data The following diagnostics were reviewed and interpreted by me:: lab results, radiology exam(s) and EKG tracing(s) Lab and/or radiology exams considered but not ordered:: none Interpretation Summary: WBC 15.2, PT/INR/PTT normal, Potassium 3.2, Creatinine 3.8 (which is chronic), Glucose 241, Blood Alcohol negative. [facility] Report Signed Patient: MARLON FLOR Record#: [id number] Birthdate: 1975 Age/Sex: 48 / M Location: [facility] Attending Dr: Ordering Physician: Elpidio Gupta MD Date of Service: 07/18/24 Procedure(s): CT stroke protocol Accession Number(s): [id number] cc: Giovanni Riley MD; Elpidio Gupta MD~ Examination: CT brain head without contrast. 2-D sagittal coronal reconstructions Date and time of exam:July 18, 20242012 hours INDICATIONS: Stroke alert, onset focal neurologic deficit beginning 7:00 AM this morning CTDI: vol (mGy):53.2 DLP: (mGycm):1024 Technique: Multiple CT axial sections of the brain have been obtained, 5 mm slice thickness. Contrast has not been administered. 2-D sagittal, coronal reconstructions have been obtained Low dose protocols were performed. One or more of the following dose reduction techniques were used; automated exposure control, adjustment of the mA and/or KV according to patient size, use of iterative reconstruction technique. Findings: 6 mm acute hemorrhage in the brainstem medulla level Ventricles are not enlarged No mass effect upon the ventricular system Cranial vault intact IMPRESSION: 6 mm acute brainstem hemorrhage Dictated By: Giovanni Riley MD Signed By: <Electronically signed by Giovanni Riley MD in OV> 07/18/242017 Medications / Prescriptions Medications or Prescriptions considered but not ordered:: none Medication administrations:: Medication Administration History Nicardipine/Sodium Chloride (Cardene Ivpb) 20 mg in 200 mls @ 50 mls/hr IV .Q4H PRN; Protocol PRN Reason: PER PROTOCOL Stop: 08/17/24 20:36 Last Titration: 07/18/24 21:05 Dose: 15 mg/hr, 150 mls/hr Documented By: Titration: 07/18/24 21:00 Dose: 12.5 mg/hr, 125 mls/hr Documented By: Titration: 07/18/24 20:55 Dose: 10 mg/hr, 100 mls/hr Documented By: Titration: 07/18/24 20:50 Dose: 7.5 mg/hr, 75 mls/hr Documented By: Admin: 07/18/24 20:45 Dose: 5 mg/hr, 50 mls/hr Documented By: WO see above Consultations Consultation(s) initiated? (list below): Yes Diagnosis Neuro Differential Diagnosis: cerebrovascular accident and other (TIA, ICH, Tovar's Palsy) Most likely diagnosis given after review of the tests above:: Brainstem Hemorrhage, Hypertensive emergency Admission Indicated Admission indicated?: not indicated Explain why admission is indicated or not indicated:: Patient requires a higher [id number]. Admission Request Was there a request for admission?: No Disposition Plan Disposition Plan: Transfer (to [facility]) Critical Care Time Critical Care Time Critical Care Time: Yes Total Critical Care Time (min.): 55 Attestation: The high probability of sudden, clinically significant deterioration in the patient?s condition required the highest level of my preparedness to intervene urgently. The services I provided to this patient were to treat and/or prevent clinically significant deterioration. Services included the following: chart data review, reviewing nursing notes and/or old charts, documentation time, senior safety management consultant collaboration regarding findings and treatment options, medication orders and management, direct patient care, vital sign assessments and ordering, interpreting and reviewing diagnostic studies and lab tests. Aggregate critical care time includes only time during which I was engaged in work directly related to the patient?s care, as described above, whether at bedside or elsewhere in the Emergency Department. It did not include time spent performing other reported procedures or the services of residents, students, nurses or physician assistants. Discharge Plan Plan Patient Disposition: [facility] Facility Pt Being Transferred to: [facility] Service Needed for Transfer: Neurosurgery Discharge Disposition comment: Accepted by Dr. Warren, neurosurgeron for ED-ED transfer Prescriptions/Referrals Prescriptions/Med Rec: No Action atorvastatin 40 mg tablet 40 mg PO QPM Qty: 14 0RF aspirin 81 mg capsule 81 mg PO QDAY Qty: 14 0RF carvedilol 12.5 mg tablet 12.5 mg PO BID Qty: 14 0RF Rx Instructions: must administer with a meal/food nicardipine 20 mg capsule 20 mg PO TID Qty: 14 0RF losartan 100 mg tablet 100 mg PO QDAY Qty: 14 0RF Problem List Clinical Impression: Brainstem hemorrhage, Hypertensive emergency Patient/Caregiver Discharge Instructions Print Language: Malian Stand Alone Forms: Sylwia Award Info., Patient Portal Info Letter
--- NOTE | 2024-07-18 20:05 | PC.NURSE ---
Pt. consulted with tele-neuro at [address] Correa awaiting further follow up with ER doc.
[2024-07-18 20:06] VITALS: PULSE 89; RESP 18; TEMP 37.1; O2SAT 98; BMI 37.1
--- NOTE | 2024-07-18 20:06 | PC.NURSE ---
CT delayed D/T current occupancy of CT machine of different stroke alert pt.
[2024-07-18 20:19] LABS: Basophils # (Auto) 0.1 Thou/mm3 (0.0-0.2); Basophils % (Auto) 0 % (0-2.5); Eosinophils % (Auto) 0 % (0-10); Hematocrit 35.3 % (41.0-53.0); Immature Granulocytes % (Auto) 0 % (0-0); Immature Granulocytes Auto 0.06 Thou/mm3 (0.00-0.00); Lymphocytes # (Auto) 0.7 Thou/mm3 (1.0-4.8); Lymphocytes % (Auto) 5 % (10-50); Mean Corpuscular HGB Conc 36.8 g/dl (31.0-37.0); Mean Corpuscular Hemoglobin 30.7 pg (25.0-35.0); Mean Corpuscular Volume 84 fL (80-100); Monocytes # (Auto) 0.4 Thou/mm3 (0.0-0.8); Monocytes % (Auto) 3 % (0-12); Neutrophils # (Auto) 13.9 Thou/mm3 (1.8-7.7); Neutrophils % (Auto) 92 % (37-80); Nucleated Red Blood Cell % 0 /100 WBC (0); Platelet Count 177 Thou/mm3 (140-440); RDW Standard Deviation 40.1 fL (35.1-43.9); Red Blood Count 4.23 Miln/mm3 (4.50-5.90); White Blood Count 15.2 Thou/mm3 (3.8-10.6)
[2024-07-18 20:27] LABS: Partial Thromboplastin Time 25.2 Seconds (22.0-36.0); Prothrombin Time 11.3 Seconds (9.0-12.2)
[2024-07-18 20:29] LABS: Alanine Aminotransferase < 7 U/L (10-49); Albumin, Serum 4.6 gm/dL (3.5-5.0); Albumin/Globulin Ratio 1.2 (1.2-2.2); Alcohol, Blood Medical < 3.0 mg/dL (0-10.0); Alkaline Phosphatase 108 U/L (46-116); Anion Gap 16 (7-16); Aspartate Amino Transferase 15 U/L (0-34); BUN/Creatinine Ratio 12 Ratio (12-20); Bilirubin,Total 0.8 mg/dL (0.3-1.2); Blood Urea Nitrogen 46 mg/dL (9-23); Calcium 9.7 mg/dL (8.3-10.6); Calcium (Corrected) 9.7 mg/dL (8.5-10.1); Carbon Dioxide 22.2 mMol/L (20.0-31.0); Chloride 102 mMol/L (98-107); Creatinine (Component) 3.8 mg/dL (0.6-1.3); Estimated Creatinine Clearance 24.9 mL/min (>60); Glucose 241 mg/dL (74-106); Magnesium 2.4 mg/dL (1.6-2.6); Osmolality,Calculated 299 (275-295); Potassium 3.2 mMol/L (3.4-5.1); Sodium 140 mMol/L (136-145); Total Protein 8.6 gm/dL (5.7-8.2); Troponin I 0.044 ng/mL (0.0-0.045); eGFR 19 See Note
[2024-07-18 20:38] VITALS: BP 269/141; PULSE 86; PULSE 89; RESP 18; TEMP 37.1; O2SAT 98
[2024-07-18 20:45] VITALS: BP 269/141; PULSE 87
[2024-07-18] MEDS: NICARDIPINE/NS 20MG IVPB 20 MG/200 ML BAG 50 MG IV (20:45)
--- NOTE | 2024-07-18 21:01 | ESCONSULT_ITS ---
History of Present Illness Data of Consult Primary Care Provider: Ambrose Escobar MD Consult Narrative cc:: cc: Meds Home Medications and Allergies Allergies Allergy/AdvReac Type Severity Reaction Status Date / Time No Known Allergies Allergy Verified 07/18/24 19:54 Exam - Neurology Vital Signs Temp Pulse Resp BP Pulse Ox O2 Del Method 98.7 F 87 18 269/141 H 98 Room Air 07/18/24 20:38 07/18/24 20:45 07/18/24 20:38 07/18/24 20:45 07/18/24 20:38 07/18/24 20:38 Results Labs 07/18/24 19:59 07/18/24 19:59 Labs: Short CBC 07/18/24 Range/Units 19:59 WBC 15.2 H (3.8-10.6) Thou/mm3 Hgb 13.0 L (13.5-16.0) g/dL Hct 35.3 L (41.0-53.0) % Plt Count 177 (140-440) Thou/mm3 BMP 07/18/24 19:59 Sodium 140 Potassium 3.2 L Chloride 102 Carbon Dioxide 22.2 BUN 46 H Creatinine 3.8 H Glucose 241 H Calcium 9.7 Cardiac Enzymes 07/18/24 Range/Units 19:59 Troponin I 0.044 (0.0-0.045) ng/mL Liver Function 07/18/24 Range/Units 19:59 Total Bilirubin 0.8 (0.3-1.2) mg/dL AST 15 (0-34) U/L ALT < 7 L (10-49) U/L Alkaline Phosphatase 108 (46-116) U/L Albumin 4.6 (3.5-5.0) gm/dL Assessment & Plan Assessment and plan (1) Brainstem hemorrhage: Status: Acute Additional Assessment & Plan Additional Plan: [facility] Consult Services Patient Name:???imke castañeda Date of :???1975 Identification Number:??? Date of Service:???07/18/2024 19:52:51 Diagnosis:?I61.3 - Intracerebral hemorrhage in brain stem Impression: PT is a 48 yo M with DM, HTN, HLP who presents to the ED with dizziness and a left facial droop. Pt was last known well last night at 23:00. CT head showed a small ICH in the left medulla measuring 6 mm. ICH likely hypertensive in etiology PT to be transferred for neurosurgical services. Recommend nicardipine ggt to keep BP < 160/90 Recommendation: Diagnostic Studies: ?Repeat CT head in first 8-12hrs Laboratory Studies:? INR/PT ? aPTT? CBC Medications:? Hold?antiplatelet?therapy/NSAIDS/Anticoagulation Nursing Recommendations: ? Telemetry, IV Fluids?Avoid dextrose containing fluids, Maintain euglycemia ? Head of bed 30 degrees ? Neuro checks q1-2?hrs?during ICU stay ? Once stable neuro checks q4?hrs Consultations: ? Need Neurosurgery consultation?STAT DVT Prophylaxis: ? SCDs Additional Recommendation: Recommend nicardipine ggt to keep BP < 160/90 Metrics: Last Known Well: 07/17/2024 23:00:00 Dispatch Time: 07/18/2024 19:52:51 Arrival Time: 07/18/2024 19:44:00 Initial Response Time: 07/18/2024 19:52:51Symptoms: Dizizness, left facial droop. . Initial patient interaction: 07/18/2024 20:11:27 NIHSS Assessment Completed: 07/18/2024 20:19:06Patient is not a candidate for Thrombolytic. Thrombolytic Medical Decision: 07/18/2024 20:19:08Patient was not deemed candidate for Thrombolytic because of following reasons: LKW outside 4.5 hr window. . Current intracranial hemorrhage . CT Head: I personally reviewed all the CT images that were available to me and it showed: a small ICH in the left medulla measuring 6 mm Primary Provider Notified of Diagnostic Impression and Management Plan on: 07/18/2024 20:35:36 History of Present Illness:Patient is a 48 year old Male. Patient was brought by private transportation with symptoms of Dizizness, left facial droop. . PT is a 48 yo M with DM, HTN, HLP who presents to the ED with dizziness and a left facial droop. Pt was last known well last night at 23:00. PT woke up this morning with a left sided facial droop and left facial numbness. He reports feeling unsteady walking like he is drunk, but has no weakness or numbness of his extremities. He has had nausea and blurry vision in his right eye. No headache. Past Medical History: ?Hypertension ?Diabetes Mellitus ?Hyperlipidemia Medications: No Anticoagulant use? Antiplatelet use:?Yes?ASA 81 mg daily Reviewed EMR for current medications Allergies:? NKDA Social History: Smoking: No Family History: There is no family history of premature cerebrovascular disease pertinent to this consultation ROS : 14 Points Review of Systems was performed and was negative except mentioned in HPI. Past Surgical History: There Is No Surgical History Contributory To Today?s Visit Examination: BP(269/141),?Pulse(82),?Blood Glucose(237) 1A: Level of Consciousness - Alert; keenly responsive?+ 0 1B: Ask Month and Age - Both Questions Right?+ 0 1C: Blink Eyes & Squeeze Hands - Performs Both Tasks?+ 0 2: Test Horizontal Extraocular Movements - Normal?+ 0 3: Test Visual Garvey - No Visual Loss?+ 0 4: Test Facial Palsy (Use Grimace if Obtunded) - Normal symmetry?+ 0 5A: Test Left Arm Motor Drift - No Effort Against Enterprise?+ 3 5B: Test Right Arm Motor Drift - No Drift for 10 Seconds?+ 0 6A: Test Left Leg Motor Drift - No Drift for 5 Seconds?+ 0 6B: Test Right Leg Motor Drift - No Drift for 5 Seconds?+ 0 7: Test Limb Ataxia (FNF/Heel-Alberts) - No Ataxia?+ 0 8: Test Sensation - Normal; No sensory loss?+ 0 9: Test Language/Aphasia - Normal; No aphasia?+ 0 10: Test Dysarthria - Normal?+ 0 11: Test Extinction/Inattention - No abnormality?+ 0 NIHSS Score:?3 ICH Score: 1 NIHSS Text :?NIHSS was 3 for a left upper and lower facial droop. Perla Coma Score:13-15 (0) Age >= 80:No (0) ICH volume >= 30mL:No (0) Intraventricular hemorrhage:No (0) Infratentorial origin of hemorrhage:Yes (+1) Pre-Morbid Modified Derrick Scale:0 Points = No symptoms at all This consult was conducted in real time using interactive audio and video technology. Patient was informed of the technology being used for this visit and agreed to proceed. Patient located in hospital and provider located at home/office setting. Due to the immediate potential for life-threatening deterioration due to underlying acute neurologic illness, I spent 24 minutes providing critical care. This time includes time for face to face visit via telemedicine, review of medical records, imaging studies and discussion of findings with providers, the patient and/or family. Dr Donita Correa [facility] For Inpatient follow-up with [facility] physician please call [facility] at . As we are not an outpatient service for any post hospital discharge needs please contact the hospital for assistance. If you have any questions for the [facility] physicians or need to reconsult for clinical or diagnostic changes please contact us via [facility] at .
--- NOTE | 2024-07-18 21:13 | PC.NURSE ---
[facility] ACCEPTS ED TO ED MD MAN. FORMS FILLED OUT, PT READY EMS EN ROUTE.
[2024-07-18 21:16] VITALS: BP 209/105; PULSE 108; RESP 18; TEMP 36.8; O2SAT 98
== END 2024-07-18 21:24 | disposition short-term general hospital (02) ==
LOC: SERX 20:58
PROVIDERS: Emergency Provider Emergency Medicine; PCP Family Medicine
DX: I61.3 Nontraumatic intracerebral hemorrhage in brain stem (principal); I16.1 Hypertensive emergency; I10 Essential (primary) hypertension; Z75.1 Person awaiting admission to adequate facility elsewhere
CPT/HCPCS: 36415; 36600; 70450; 80053; 80307; 80320; 81001; 82803; 83735; 84484; 85025; 85610; 85730; 93005; 96365; 99291; J2404; G0480

== ENCOUNTER 2024-08-18 12:02 | Inpatient (IN) | payer MEDICAID, SELFPAY ==
[2024-08-18] VITALS (8 sets, daily range): BP systolic 139–173; BP diastolic 78–90; PULSE 59–78; RESP 16–96; TEMP 36.5–36.8; O2SAT 93–98; BMI 41.1
--- NOTE | 2024-08-18 12:15 | EKG_ITS ---
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: : 1975 Requested By: Alessandro Newell Order Number: [id number] Reading MD: Alessandro Newell Measurements Intervals Nash Rate: 59 P: 38 DC: 177 QRS: -39 QRSD: 100 T: 74 QT: 428 QTc: 426 Interpretive Statements SINUS BRADYCARDIA WITH OCCASIONAL SUPRAVENTRICULAR PREMATURE COMPLEXES LEFT AXIS DEVIATION [QRS AXIS < -30] PATTERN CONSISTENT WITH PULMONARY DISEASE MODERATE VOLTAGE CRITERIA FOR LVH, CONSIDER NORMAL VARIANT [MEETS CRITERIA IN ONE OF: R(aVL), S(V1), R(V5), R(V5/V6)+S(V1)] NONSPECIFIC T-WAVE ABNORMALITY Compared to ECG 05/21/2024 03:13:20 T-wave abnormality now present Sinus rhythm no longer present Myocardial infarct finding no longer present /store/S0/[id number]/ecg/[id number].pdf
--- NOTE | 2024-08-18 12:15 | EDRME_ITS ---
<Statement entered by Pooja An MD - 08/27/24 19:22> As co-signing physician, I was present and available for consult prn. I concur with the plan and care as documented by the midlevel provider. Rapid Medical Screening Exam RME Arrival date/time: 08/18/24 12:02 49-year-old male with a history of hyperlipidemia, hypertension, stroke, presents to the emergency room with a chief complaint of bilateral lower extremity swelling and tenderness as well as swelling and pain to his abdomen. I have greeted and performed a focused initial assessment of this patient. A comprehensive ED assessment and evaluation of the patient, analysis of all test results, and completion of the medical decision making process will be conducted by additional ED providers. Chief Complaint: General Adult/Misc Complain Vital signs: Vital Signs Temperature 98.3 F 08/18/24 12:11 Pulse Rate 59 L 08/18/24 12:11 Respiratory Rate 16 08/18/24 12:11 Blood Pressure 139/79 H 08/18/24 12:11 Pulse Oximetry (%) 94 L 08/18/24 12:11 Oxygen Delivery Method Room Air 08/18/24 12:11 Vital signs reviewed by provider: Yes
--- NOTE | 2024-08-18 12:15 | XR_ITS ---
Examination: PA lateral chest 2 views TECHNIQUE: Upright PA lateral chest 2 views Date and time: August 18, 2024 12:55 PM Comparison May 20, 2024 INDICATIONS: Chest pain today with edema in the feet FINDINGS: Mild chronic heart failure pattern Mild enlargement cardiac contour Prominent vascular congestion including central vascular engorgement Suspicious for edema at the lung bases with moderate to large bilateral pleural effusions IMPRESSION: Mild chronic heart failure pattern
--- NOTE | 2024-08-18 12:15 | XR_ITS ---
Examination: Venous duplex lower extremity sonogram, bilateral. Date and time of exam: August 18, 2024 1226 hours INDICATIONS: Bilateral feet swelling and pain beginning 3 days ago Technique: Multiple sonographic images of the deep venous system have been obtained. B-mode/2-D grayscale imaging of vascular structures and Doppler spectral analysis (waveforms) and color performed Both legs are examined. Findings: Deep venous systems do not demonstrate abnormal echogenicity. All visualized deep veins exhibit compressibility. All visualized deep veins exhibit augmentation. Impression: Negative for deep vein thrombosis
--- NOTE | 2024-08-18 12:16 | XR_ITS ---
Examination: CT abdomen and pelvis without contrast. Coronal 3-D reconstructions. Sagittal 2-D reconstructions. Date and time of exam:August 18, 2024 1325 hours INDICATIONS: Abdominal pain and distention today CTDI: vol (mGy): 12.9 DLP: (mGycm): 887 Technique: Axial images of the abdomen have been obtained, 3 mm slice thickness Intravenous contrast material has not been administered. Low dose protocols were performed. One or more of the following dose reduction techniques were used; automated exposure control, adjustment of the mA and/or KV according to patient size, use of iterative reconstruction technique. Findings: Mild enlargement cardiac contour with prominent vascular congestion and moderate right pleural effusion Atelectasis versus pneumonia right base Liver irregular in contour with mild ascites No definite gallstones Gallbladder wall is mildly thickened but again the patient has ascites Spleen not enlarged No pancreatic or adrenal mass. No renal or ureteral calculi. No bowel obstruction Normal appendix Anasarca Colonic diverticulosis Contracted urinary bladder, urinary bladder wall thickening up to 15 mm No significant prostatomegaly Moderate osteopenia IMPRESSION: Prominent vascular congestion with moderate right pleural effusion Atelectasis versus pneumonia right base Cirrhosis Mild ascites Gallbladder wall is mildly thickened but the patient has ascites Normal appendix No bowel obstruction Anasarca Urinary bladder wall thickening up to 15 mm, differential would include cystitis
[2024-08-18 13:04] LABS: Basophils # (Auto) 0.1 Thou/mm3 (0.0-0.2); Basophils % (Auto) 1 % (0-2.5); Eosinophils # (Auto) 0.2 Thou/mm3 (0.0-0.5); Eosinophils % (Auto) 5 % (0-10); Hematocrit 31.4 % (41.0-53.0); Hemoglobin 10.9 g/dL (13.5-16.0); Immature Granulocytes Auto 0.01 Thou/mm3 (0.00-0.00); Lymphocytes # (Auto) 1.1 Thou/mm3 (1.0-4.8); Lymphocytes % (Auto) 21 % (10-50); Mean Corpuscular HGB Conc 34.7 g/dl (31.0-37.0); Mean Corpuscular Hemoglobin 30.1 pg (25.0-35.0); Mean Corpuscular Volume 87 fL (80-100); Monocytes # (Auto) 0.6 Thou/mm3 (0.0-0.8); Monocytes % (Auto) 11 % (0-12); Neutrophils # (Auto) 3.3 Thou/mm3 (1.8-7.7); Neutrophils % (Auto) 62 % (37-80); Nucleated Red Blood Cell # 0.00 Thou/mm3 (0.00-0.00); Nucleated Red Blood Cell % 0 /100 WBC (0); Platelet Count 162 Thou/mm3 (140-440); RDW Standard Deviation 43.3 fL (35.1-43.9); Red Blood Count 3.62 Miln/mm3 (4.50-5.90); White Blood Count 5.3 Thou/mm3 (3.8-10.6)
[2024-08-18 13:17] LABS: INR 1.1 (0.9-1.3); Partial Thromboplastin Time 28.7 Seconds (22.0-36.0); Prothrombin Time 12.1 Seconds (9.0-12.2)
[2024-08-18 13:18] LABS: B-Type Natriuretic Peptide 470 pg/mL (0-100)
[2024-08-18 13:24] LABS: Collection Type, Urine Clean Catch
[2024-08-18 13:29] LABS: Alanine Aminotransferase 11 U/L (10-49); Albumin, Serum 3.9 gm/dL (3.5-5.0); Albumin/Globulin Ratio 1.3 (1.2-2.2); Alkaline Phosphatase 85 U/L (46-116); Anion Gap 9 (7-16); Aspartate Amino Transferase 11 U/L (0-34); BUN/Creatinine Ratio 7 Ratio (12-20); Bilirubin,Total 0.4 mg/dL (0.3-1.2); Blood Urea Nitrogen 34 mg/dL (9-23); Calcium 8.8 mg/dL (8.3-10.6); Calcium (Corrected) 8.9 mg/dL (8.5-10.1); Carbon Dioxide 25.4 mMol/L (20.0-31.0); Chloride 107 mMol/L (98-107); Creatinine (Component) 4.7 mg/dL (0.6-1.3); Estimated Creatinine Clearance 22.5 mL/min (>60); Globulin 2.9 gm/dL (2.3-3.5); Glucose 97 mg/dL (74-106); Lipase 26 U/L (12-53); Osmolality,Calculated 288 (275-295); Potassium 3.7 mMol/L (3.4-5.1); Sodium 141 mMol/L (136-145); Total Protein 6.8 gm/dL (5.7-8.2); Troponin I 0.027 ng/mL (0.0-0.045); eGFR 14 See Note
[2024-08-18 13:33] LABS: Bilirubin,Urine Negative (Negative); Blood,Urine Negative (Negative); Clarity,Urine Clear (Clear/Hazy); Color,Urine Lt-Yellow (Lt Yel-Yel); Glucose, Urine Negative (Negative); Ketones,Urine Negative (Negative); Leukocyte Esterase,Urine Negative (Negative); Nitrite,Urine Negative (Negative); PH,Urine 6.0 (5.0-7.0); Protein,Urine 1+ (Neg - Trace); RBC,Urine 1 /hpf (0-3); Specific Gravity,Urine 1.014 (1.001-1.035); Squamous Epithelial Cell,Urine < 1 /hpf (0-5); Urobilinogen,Urine Negative mg/dL (0.0-1.0); WBC,Urine 1 /hpf (0-5)
[2024-08-18 13:39] LABS: Amphetamine/Methamp Scrn,U Negative (Negative); Barbiturate Screen,Urine Negative (Negative); Benzodiazepines Screen,Urine Negative (Negative); Benzoylecgonine Screen, Ur Negative (Negative); Fentanyl Screen,Urine Negative (Negative); Opiate Screen,Urine Negative (Negative); THC Screen,Urine Negative (Negative)
--- NOTE | 2024-08-18 15:05 | EDNOTE_ITS ---
<Statement entered by Pooja An MD - 08/27/24 19:14> As co-signing physician, I was present and available for consult prn. I concur with the plan and care as documented by the midlevel provider. ED General RME/HPI General Chief complaint: General Adult/Misc Complain Stated complaint: FEET/STOMACH VERY SWOLLEN X 3 WKS Time Seen by Provider: 08/18/24 15:46 Arrival date/time: 08/18/24 12:02 49-year-old male with a past medical history of hypertension, chronic kidney disease, CHF, NSTEMI, hyperlipidemia, and recent brainstem stroke presents to the ED with a complaint of orthopnea, dyspnea on exertion, and worsening edema of his lower extremities and abdomen. He is currently sleeping in a recliner at home due to the inability to lay flat. It is unknown if he has had a recent weight gain as he does not have a scale at home. RME / HPI RME / HPI narrative: 08/18/24 12:02 49-year-old male with a history of hyperlipidemia, hypertension, stroke, presents to the emergency room with a chief complaint of bilateral lower extremity swelling and tenderness as well as swelling and pain to his abdomen. I have greeted and performed a focused initial assessment of this patient. A comprehensive ED assessment and evaluation of the patient, analysis of all test results, and completion of the medical decision making process will be conducted by additional ED providers. Related Data Previous Rx's ?Medication ?Instructions ?Recorded aspirin 81 mg capsule 81 mg PO QDAY #14 caps 05/24 atorvastatin 40 mg tablet 40 mg PO QPM #14 tabs carvedilol 12.5 mg tablet 12.5 mg PO BID #14 tabs 09/10 losartan 100 mg tablet 100 mg PO QDAY #14 tabs 09/10 nicardipine 20 mg capsule 20 mg PO TID #14 caps Allergies Allergy/AdvReac Type Severity Reaction Status Date / Time No Known Allergies Allergy Verified 08/18/24 12:06 Review of Systems Review of Systems Systems Reviewed: All systems reviewed, normal except as documented Past Medical History Past Medical History NEUROLOGIC: Negative Seizures CARDIAC: Positive Cardiac Disorders, Hypercholesterolemia and Hypertension; Negative Congestive Heart Failure RESPIRATORY: Negative Chronic Obstructive Pulmonary Disease (COPD) GENITOURINARY: Positive Renal Disease ENDOCRINE: Positive Diabetes Mellitus Type 2; Negative Diabetes Mellitus Type 1 OTHER HISTORY: Negative Blood Transfusions, Blood Transfusion Reaction or Anesthesia Reactions Family History FAMILY HISTORY: Positive Family Cardiac Disorders Social History SMOKING STATUS: Never smoker SUBSTANCE USE: does not use ED Exam Narrative Physical exam: Alert and oriented, Bulgarian-speaking male, afebrile nontoxic-appearing. Initial vital signs blood pressure 139/79, pulse 59, respirations 16 and nonlabored, temperature 98.3, O2 sat 94% on room air. Lungs are diminished at the bases, mild bradycardia noted without murmurs. Abdomen is significantly distended, soft without tenderness. Bilateral lower extremities with 4+ pitting edema. Right calf tenderness. No left calf tenderness. Course Course Course Narrative: CBC reveals a normal white count of 5.3, low H&H of 10.9/31.4 with normal platelets. Coagulation studies are normal. Chemistry panel reveals a normal sodium, potassium, chloride, CO2 and gap. BUN is 34, creatinine is critical at 4.7 with an EGFR of 14. LFTs are normal, lipase is normal at 26. Total protein is normal at 6.8, albumin normal at 3.9 Troponin is normal at 0.027 and BNP is significantly elevated at 470. Urinalysis reveals clear light yellow urine with a specific gravity of 1.014 with 1+ protein, negative nitrates, negative leukocyte esterase, no bacteria. Urine drug screen is negative. EKG reveals sinus bradycardia at a rate of 59 with left axis deviation. No T wave abnormalities. XR chest reveals: Edema at the lung bases with moderate to large bilateral pleural effusions with prominent vascular congestion including central vascular engorgement. Bilateral lower extremity venous duplex reveals: No evidence of deep vein thrombosis bilaterally. Deep venous systems do not demonstrate abnormal echogenicity. All visualized deep veins exhibit compressibility. All visualized deep veins exhibit augmentation. CT abdomen pelvis reveals: Prominent vascular congestion with moderate right pleural effusion. Atelectasis versus pneumonia right base. Anasarca. Cirrhosis. Mild ascites. Gallbladder wall is mildly thickened but the patient has ascites. Normal appendix. No bowel obstruction. Urinary bladder wall thickening up to 15 mm, differential would include cystitis. Quality Measures none Orders Category Date Time Status EKG (ED ONLY) *Do not use* NOW Care 08/18/24 12:[address] abdomen pelvis wo con Stat Exams 08/18/24 12:16 Completed EKG (ED Only) Stat Exams 08/18/24 12:15 Draft US venous doppler LE BI Stat Exams 08/18/24 12:15 Completed XR chest 2V Stat Exams 08/18/24 12:15 Completed B-Type Natriuretic Peptide Stat Lab 08/18/24 12:46 Completed CBC Stat Lab 08/18/24 12:46 Completed Comprehensive Metabolic Panel Stat Lab 08/18/24 12:46 Completed Drug Screen,Urine Stat Lab 08/18/24 13:10 Completed Lipase Stat Lab 08/18/24 12:46 Completed Partial Thromboplastin Time Stat Lab 08/18/24 12:46 Completed Prothrombin Time with INR Stat Lab 08/18/24 12:46 Completed Troponin I Stat Lab 08/18/24 12:46 Completed Urinalysis Stat Lab 08/18/24 13:10 Completed Vital Signs Vital signs: Vital Signs Temperature 98.3 F 08/18/24 12:11 Pulse Rate 59 L 08/18/24 12:11 Respiratory Rate 16 08/18/24 12:11 Blood Pressure 139/79 H 08/18/24 12:11 Pulse Oximetry (%) 94 L 08/18/24 12:11 Oxygen Delivery Method Room Air 08/18/24 12:11 Discharge Plan Plan Patient Disposition: Admit Acute Care w/in Hospital Discharge Disposition comment: Stable Prescriptions/Referrals Prescriptions/Med Rec: No Action atorvastatin 40 mg tablet 40 mg PO QPM Qty: 14 0RF aspirin 81 mg capsule 81 mg PO QDAY Qty: 14 0RF carvedilol 12.5 mg tablet 12.5 mg PO BID Qty: 14 0RF Rx Instructions: must administer with a meal/food nicardipine 20 mg capsule 20 mg PO TID Qty: 14 0RF losartan 100 mg tablet 100 mg PO QDAY Qty: 14 0RF Referrals: Ambrose Escobar MD [Primary Care Provider] - In 1 week Problem List Clinical Impression: CHF exacerbation, Acute on chronic renal failure, Pleural effusion, bilateral, Anasarca Patient/Caregiver Discharge Instructions Print Language: Bulgarian Stand Alone Forms: Sylwia Award Info., Patient Portal Info Letter PA/ATOMIC PHYSICS TEACHER Supervising Physician PA/ATOMIC PHYSICS TEACHER Supervising Physician: Dr. An MDM Narrative MDM hospital course: 49-year-old male with a past medical history of hypertension, chronic kidney disease, CHF, NSTEMI, hyperlipidemia, and recent brainstem stroke presents to the ED with a complaint of orthopnea, dyspnea on exertion, and worsening edema of his lower extremities and abdomen. He is currently sleeping in a recliner at home due to the inability to lay flat. It is unknown if he has had a recent weight gain as he does not have a scale at home. Alert and oriented, Bulgarian-speaking male, afebrile nontoxic-appearing. Initial vital signs blood pressure 139/79, pulse 59, respirations 16 and nonlabored, temperature 98.3, O2 sat 94% on room air. Lungs are diminished at the bases, mild bradycardia noted without murmurs. Abdomen is significantly distended, soft without tenderness. Bilateral lower extremities with 4+ pitting edema. Right calf tenderness. No left calf tenderness. CBC reveals a normal white count of 5.3, low H&H of 10.9/31.4 with normal platelets. Coagulation studies are normal. Chemistry panel reveals a normal sodium, potassium, chloride, CO2 and gap. BUN is 34, creatinine is critical at 4.7 with an EGFR of 14. LFTs are normal, lipase is normal at 26. Total protein is normal at 6.8, albumin normal at 3.9 Troponin is normal at 0.027 and BNP is significantly elevated at 470. Urinalysis reveals clear light yellow urine with a specific gravity of 1.014 with 1+ protein, negative nitrates, negative leukocyte esterase, no bacteria. Urine drug screen is negative. EKG reveals sinus bradycardia at a rate of 59 with left axis deviation. No T wave abnormalities. No STEMI. XR chest reveals: Edema at the lung bases with moderate to large bilateral pleural effusions with prominent vascular congestion including central vascular engorgement. Bilateral lower extremity venous duplex reveals: No evidence of deep vein thrombosis bilaterally. Deep venous systems do not demonstrate abnormal echogenicity. All visualized deep veins exhibit compressibility. All visualized deep veins exhibit augmentation. CT abdomen pelvis reveals: Prominent vascular congestion with moderate right pleural effusion. Atelectasis versus pneumonia right base. Anasarca. Cirrhosis. Mild ascites. Gallbladder wall is mildly thickened but the patient has ascites. Normal appendix. No bowel obstruction. Urinary bladder wall th ickening up to 15 mm, differential would include cystitis. Exam, labs and diagnostic studies suggest diagnoses including: #Acute on chronic renal failure with a BUN of 34 and creatinine of 4.7. #Bilateral pleural effusions. #Congestive heart failure with elevated BNP of 470 with a normal troponin of 0.027 with symptoms of orthopnea and dyspnea on exertion. #Anasarca with worsening edema, possibly related to calcium channel allen. Clinical Information Provided by patient and spouse other: Through racebook writer Medical Records Reviewed [facility] Meds/Rx Considered, not Ordered None Labs/Rad/Tests considered, not Ordered None Chronic Illness/Social Conditions which may negatively complicate care or outcome(s)-explain: Hx of noncompliance, CHF/CAD/Cardiac illness and Liver disease EKG EKG Interpretation narrative: EKG reveals sinus bradycardia at a rate of 59 with left axis deviation. No T wave abnormalities. No STEMI. Lab Interpretation Labs: interpreted by dc Lab(s) interpretation(s): CBC reveals a normal white count of 5.3, low H&H of 10.9/31.4 with normal platelets. Coagulation studies are normal. Chemistry panel reveals a normal sodium, potassium, chloride, CO2 and gap. BUN is 34, creatinine is critical at 4.7 with an EGFR of 14. LFTs are normal, lipase is normal at 26. Total protein is normal at 6.8, albumin normal at 3.9 Troponin is normal at 0.027 and BNP is significantly elevated at 470. Urinalysis reveals clear light yellow urine with a specific gravity of 1.014 with 1+ protein, negative nitrates, negative leukocyte esterase, no bacteria. Urine drug screen is negative. Imaging Imaging interpretation: see narrative above Radiology reports / interpretation(s): XR chest reveals: Edema at the lung bases with moderate to large bilateral pleural effusions with prominent vascular congestion including central vascular engorgement. Bilateral lower extremity venous duplex reveals: No evidence of deep vein thrombosis bilaterally. Deep venous systems do not demonstrate abnormal echogenicity. All visualized deep veins exhibit compressibility. All visualized deep veins exhibit augmentation. CT abdomen pelvis reveals: Prominent vascular congestion with moderate right pleural effusion. Atelectasis versus pneumonia right base. Anasarca. Cirrhosis. Mild ascites. Gallbladder wall is mildly thickened but the patient has ascites. Normal appendix. No bowel obstruction. Urinary bladder wall thickening up to 15 mm, differential would include cystitis. Medication Administration(s) none Diagnosis Differential diagnosis: CHF, renal failure, pneumonia, liver failure, cirrhosis, anasarca Differential dx and/or dx ruled out: Pneumonia, liver failure Most likely dx, and/or detailed dx discussion: CHF with orthopnea, acute on chronic renal failure, anasarca, bilateral pleural effusions Dispositon Disposition: Admit
--- NOTE | 2024-08-18 17:00 | PD.RESHP ---
Documentation for date of: 08/18/24 Exam Vital Signs Temp Pulse Resp BP Pulse Ox O2 Del Method 98.1 F 60 18 154/83 H 98 Room Air 08/18/24 19:46 08/18/24 19:46 08/18/24 19:46 08/18/24 19:46 08/18/24 19:46 08/18/24 19:46 Results: Labs 08/18/24 12:46 08/18/24 12:46 Labs: Short CBC 08/18/24 Range/Units 12:46 WBC 5.3 (3.8-10.6) Thou/mm3 Hgb 10.9 L (13.5-16.0) g/dL Hct 31.4 L (41.0-53.0) % Plt Count 162 (140-440) Thou/mm3 BMP 08/18/24 12:46 Sodium 141 Potassium 3.7 Chloride 107 Carbon Dioxide 25.4 BUN 34 H Creatinine 4.7 H* Glucose 97 Calcium 8.8 Cardiac Enzymes 08/18/24 Range/Units 12:46 Troponin I 0.027 (0.0-0.045) ng/mL Liver Function 08/18/24 Range/Units 12:46 Total Bilirubin 0.4 (0.3-1.2) mg/dL AST 11 (0-34) U/L ALT 11 (10-49) U/L Alkaline Phosphatase 85 (46-116) U/L Albumin 3.9 (3.5-5.0) gm/dL Urine 08/18/24 Range/Units 13:10 Urine Color Lt-Yellow (Lt Yel-Yel) Urine Clarity Clear (Clear/Hazy) Urine pH 6.0 (5.0-7.0) Ur Specific [place] 1.014 (1.001-1.035) Urine Protein 1+ A (Neg - Trace) Urine Glucose (UA) Negative (Negative) Quality Measures Quality Measures none Medications Home Medications and Allergies Allergies Allergy/AdvReac Type Severity Reaction Status Date / Time No Known Allergies Allergy Verified 08/18/24 12:06 Visit Medications Acetaminophen (Acetaminophen 325 Mg Tablet) 650 mg PO Q6H PRN PRN Reason: Mild Pain 1-3 or Fever >100.3 Stop: 09/17/24 16:45 Bumetanide (Bumetanide Inj 0.25 Mg/Ml Vial 4 Ml) 1 mg IVP BIDD [facility] Stop: 09/17/24 20:59 Dextrose (Dextrose 50%-Water Inj 50 Ml Syringe) 25 ml IV Q15MIN PRN PRN Reason: BG 50-70 responsive npo pt Stop: 09/17/24 17:01 Dextrose (Dextrose 50%-Water Inj 50 Ml Syringe) 50 ml IV Q15MIN PRN PRN Reason: BG <50 OR BG <70 & pt unresponsive Stop: 09/17/24 17:01 Famotidine (Famotidine 20 Mg Tablet) 20 mg PO HS [facility] Stop: 09/17/24 20:59 Glucagon (Glucagon Inj 1 Mg Vial) 1 mg IM Q15MIN PRN PRN Reason: BG <70, and no IV access Heparin Sodium (Porcine) (Heparin Sod Inj 5000 Unit/Ml Vial) 5,000 unit SC Q12HR [facility] Stop: 09/01/24 20:59 Hydralazine HCl (Hydralazine Inj 20 Mg/Ml Vial) 10 mg IVP Q4HR PRN PRN Reason: Hypertension Stop: 09/17/24 18:52 Hydromorphone HCl (Hydromorphone Inj 2 Mg/Ml Vial) 0.5 mg IVP Q6HR PRN PRN Reason: PAIN SCALE 4-10(Mod-Sev Stop: 08/23/24 16:45 Insulin Human Lispro (Insulin Lispro (Admelog) 1 Unit/0.01 Ml Unit) 0 unit SC [facility]; Protocol Stop: 09/17/24 20:59 Ondansetron HCl (Ondansetron Inj 2 Mg/Ml Inj 2 Ml) 4 mg IVP Q6H PRN; Protocol PRN Reason: NAUSEA OR VOMITING Stop: 09/17/24 16:45 Sennosides (Senna Tablet) 1 tab PO QDAY [facility]; Protocol Stop: 09/18/24 08:59 Discontinued Medications Bumetanide (Bumetanide Inj 0.25 Mg/Ml Vial 4 Ml) 2 mg IVP TID [facility] Stop: 09/17/24 21:59
--- NOTE | 2024-08-18 17:00 | XR_ITS ---
Examination: Retroperitoneal ultrasound, complete Technique: Multiple high resolution grayscale images of the retroperitoneum obtained, including kidneys and bladder. Exam date and time:August 18, 2024 at 1750 hours Comparison May 22, 2024 INDICATIONS: Acute renal insufficiency superimposed on chronic kidney disease this week with abdominal distention 3 weeks FINDINGS: Right kidney 11.0 cm renal cortex is 1.4 cm Left kidney 10.3 cm cortex 2.0 cm 5 mm midpole left renal calculus Mild renal parenchymal scar formation Incidental note ascites Urinary bladder prevoid volume 199 cc, unable to void IMPRESSION: Regular cortical thinning 5 mm mid pole left renal calculus No hydronephrosis
[2024-08-18 17:51] LABS: Chloride,Urine Random 69.1 mMol/L (55.0-125.0); Creatinine,Random Urine 61 mg/dL (30-125); Potassium,Urine Random 30 mMol/L (12-62); Sodium,Urine Random 82.6 mMol/L (20.0-110.0)
--- NOTE | 2024-08-18 18:25 | PD.RESHP ---
Documentation for date of: 08/18/24 HPI History of Present Illness History of present illness: senior attestation: Patient is a 49-year-old past medical history of CVA, hyperlipidemia, resistant hypertension, CHF HFpEF 60-65% (06/11/2024) and now DIANA on CKD. Patient admitted for DIANA on CKD and CHF exacerbation on 08/18/2024. Patient has been in acute renal failure now presenting DIANA on CKD stage IV who presented with worsening BUN of 34, creatinine 4.7 and GFR of 14.BUN/creatinine ratio noted to be 7. Concern for prerenal in the setting of cardiorenal syndrome progressing to intrinsic renal failure. Continue to monitor urine output. Urine electrolytes and urine protein ordered. Previous aldosterone of 9& renin 8.08 (H) -->ratio 1.125. Less likely secondary to primary aldosteronism. Previous US (05/22/2024): Moderate bilateral renal parenchymal scar formation. Concern for acute renal failure. Likely underlying cardiorenal syndrome. CHF exacerbation with elevated BNP 470. Vascular congestion, moderate right pleural effusion. Bumex 1 mg BID as patient is naive to diuresis, continue to monitor plerural effusion and follow up with Cxr if aggressive diuresis improves right pleural effusion. Holding off carvedilol. Hydrazine added prn for hypertension, Nicardipine holding off given lower perdal edema. Sliding scale added. Dr. Win consulted. Patient is a 49-year-old male with past medical history of hyperlipidemia, resistant hypertension. stroke and Type 2 diabetes sent to the emergency room today because of orthopnea, dyspnea on exertion, and worsening lower extremity and abdominal edema. He feels like air is being trapped inside his lungs whenever he breathes This started several days ago on his lower legs going up towards his lower abdomen. He could no longer sleep flat and have to rely on recliner at home in order to sleep. He was able to walk at most 2 blocks before going out of breath. Denies chest pain, headaches, vision changes, cough. In ED, BUN of 34, creatinine was 4.7 and EGFR of 14. Albumin of 3.9. Troponin level is normal at 0.027 and BNP is significantly elevated at 470 Patient admitted on 08/18/2024 for DIANA on CKD and CHF exacerbation. PMH: CVA, HLD, resistant HTN, CHF HFpEF 60-65% PSH:denied past surgical history FHx: HTN Allergies: none Sx:denied alochol use, deneid illicit drug use, denied smoking histoyr Code status: Full code Review of Systems Review of Systems Narrative Review of Systems: Systems Reviewed: All systems reviewed, normal except as documented Past Medical History Social History SOCIAL: Does not smoke and no substance use Exam Vital Signs Temp Pulse Resp BP Pulse Ox O2 Del Method 98.0 F 70 18 161/84 H 95 Room Air 08/18/24 18:15 08/18/24 18:15 08/18/24 18:15 08/18/24 18:15 08/18/24 18:15 08/18/24 18:15 Narrative Exam GENERAL: Awake, alert, cooperative NEURO: Numbness in bilateral legs HEENT: Neck supple, Oral mucosa pink, pharynx without exudates, conjunctiva slightly red HEART: Normal Heart Sounds LUNGS: Lungs sound diminished at the bases, no crackles or wheezing ABDOMEN: significantly distended, soft without tenderness, No guarding or rebound tenderness SKIN: No Rash or ecchymoses Extremities: Bilateral lower extremities with 4+ pitting edema. No ulcers or abrasions Results: Labs 08/18/24 12:46 08/18/24 12:46 Labs: Short CBC 08/18/24 Range/Units 12:46 WBC 5.3 (3.8-10.6) Thou/mm3 Hgb 10.9 L (13.5-16.0) g/dL Hct 31.4 L (41.0-53.0) % Plt Count 162 (140-440) Thou/mm3 BMP 08/18/24 12:46 Sodium 141 Potassium 3.7 Chloride 107 Carbon Dioxide 25.4 BUN 34 H Creatinine 4.7 H* Glucose 97 Calcium 8.8 Cardiac Enzymes 08/18/24 Range/Units 12:46 Troponin I 0.027 (0.0-0.045) ng/mL Liver Function 08/18/24 Range/Units 12:46 Total Bilirubin 0.4 (0.3-1.2) mg/dL AST 11 (0-34) U/L ALT 11 (10-49) U/L Alkaline Phosphatase 85 (46-116) U/L Albumin 3.9 (3.5-5.0) gm/dL Urine 08/18/24 Range/Units 13:10 Urine Color Lt-Yellow (Lt Yel-Yel) Urine Clarity Clear (Clear/Hazy) Urine pH 6.0 (5.0-7.0) Ur Specific [place] 1.014 (1.001-1.035) Urine Protein 1+ A (Neg - Trace) Urine Glucose (UA) Negative (Negative) Quality Measures Quality Measures none Medications Home Medications and Allergies Home Medications ?Medication ?Instructions ?Recorded ?Confirmed ?Type clonidine HCl 0.2 mg tablet 0.2 mg PO TID 08/18/24 08/18/24 History hydralazine 50 mg tablet 50 mg PO TID 08/18/24 08/18/24 History minoxidil 2.5 mg tablet 2.5 mg PO TID 08/18/24 08/18/24 History sodium bicarbonate 650 mg tablet 650 mg PO TID 08/18/24 08/18/24 History vitamin B complex-vitamin C-folic 1 tab PO Q24H 08/18/24 08/18/24 History acid 0.8 mg tablet (Nephro-Ariana) Allergies Allergy/AdvReac Type Severity Reaction Status Date / Time No Known Allergies Allergy Verified 08/18/24 12:06 Visit Medications Acetaminophen (Acetaminophen 325 Mg Tablet) 650 mg PO Q6H PRN PRN Reason: Mild Pain 1-3 or Fever >100.3 Stop: 09/17/24 16:45 Bumetanide (Bumetanide Inj 0.25 Mg/Ml Vial 4 Ml) 2 mg IVP TID [facility] Stop: 09/17/24 21:59 Dextrose (Dextrose 50%-Water Inj 50 Ml Syringe) 25 ml IV Q15MIN PRN PRN Reason: BG 50-70 responsive npo pt Stop: 09/17/24 17:01 Dextrose (Dextrose 50%-Water Inj 50 Ml Syringe) 50 ml IV Q15MIN PRN PRN Reason: BG <50 OR BG <70 & pt unresponsive Stop: 09/17/24 17:01 Famotidine (Famotidine 20 Mg Tablet) 20 mg PO HS [facility] Stop: 09/17/24 20:59 Glucagon (Glucagon Inj 1 Mg Vial) 1 mg IM Q15MIN PRN PRN Reason: BG <70, and no IV access Heparin Sodium (Porcine) (Heparin Sod Inj 5000 Unit/Ml Vial) 5,000 unit SC Q12HR [facility] Stop: 09/01/24 20:59 Hydromorphone HCl (Hydromorphone Inj 2 Mg/Ml Vial) 0.5 mg IVP Q6HR PRN PRN Reason: PAIN SCALE 4-10(Mod-Sev Stop: 08/23/24 16:45 Insulin Human Lispro (Insulin Lispro (Admelog) 1 Unit/0.01 Ml Unit) 0 unit SC [facility]; Protocol Stop: 09/17/24 20:59 Ondansetron HCl (Ondansetron Inj 2 Mg/Ml Inj 2 Ml) 4 mg IVP Q6H PRN; Protocol PRN Reason: NAUSEA OR VOMITING Stop: 09/17/24 16:45 Sennosides (Senna Tablet) 1 tab PO QDAY [facility]; Protocol Stop: 09/18/24 08:59 Assessment & Plan Plan # DIANA on Chronic Kidney Disease # ?Cardiorenal Syndrome - BUN of 34, creatinine was 4.7 and EGFR of 14.? Albumin of 3.9. - Renal ultrasound (08/18/2024): Regular cortical thinning, 5 mm mid pole left renal calculus, No hydronephrosis. Plan: -Repeat Renal US -Urine electrolytes, Urine protein and Urea -Avoid nephrotoxic and renally dise medications -strict ins and outs -Consulted [facility] [employer] Dr. Win, appreciate recommendations #Acute decompensated heart failure exacerbation - EKG: sinus bradycardia at a rate of 59 with left axis deviation. No T wave abnormalities. No STEMI. - CXR: Edema at the lung bases with moderate to large bilateral pleural effusions with prominent vascular congestion including central vascular engorgement. - Bilateral lower extremity venous duplex: No evidence of deep vein thrombosis bilaterally. - Past Echo (05/21/2024): EF 60-65%. Moderate to severe concentric LVH. Diastolic dysfunction stage I. Plan: - Bumex 1mg IV bid -Hold Carvedilol given worsening CHF exacerbation -TSH and Lipid panel - Strict ins and out -K>4 and Mg >2 -Daily weights -Fluid restrictions 1800 #History Diabetes Mellitus Type 2 Previous A1c of 6.2 May of 2024 which showed pre-diabetes range and had been on metformin but was stopped prior to discharge given CrCl. Patient was asked to follow up with pcp and nephrology for further recommendations. Patient has not followed up with nephrology. Plan -sliding scale -fasting glucose AM -A1c AM Health Maintenance: Disp: Pt is currently admitted to floors for further management of DIANA on CKD and CHF exacerbation, awaiting improved ANASARCA FEN: renal diet DVT: on subQ heparin 12 hrs Code: Full - The patient's plan was discussed with attending Dr. Khai Macias MD PGY2 Internal Medicine The patient's case has been discussed with attending physician Dr. Ridley and senior resident, Dr. Colleen Ruano PGY 1 Internal Medicine Attending Provider Attestation/Addendum I have discussed and was present for the essential components of the history, physical examination, diagnosis, and treatment plan with the resident. I agree with the patient's care as documented by the resident and amended herein by me. Faustino Ridley DO. Although this document has been carefully reviewed, there may still be some phonetic and other typographical errors. These errors are purely grammatical due to imperfections in the software program and should not be construed in any way to compromise the substance of the patient's medical care during this visit.
--- NOTE | 2024-08-18 18:30 | PD.RESCONSUL ---
HPI Data of Consult Consult date: 08/18/24 Requesting Physician: Layo Ridley DO Admitting Provider: Layo Ridley DO Attending Provider: Layo Ridley DO Primary Care Provider: Ambrose Escobar MD Consult Narrative Reason for consult: DIANA History of present illness: Mr. Beckford is a 49 year old male with a relevant medical history of brainstem stroke, HLD, CHF, and resistant HTN who presents with dyspnea and worsening BLE edema and abdominal edema. Nephrology was consulted due to concerns of DIANA in the setting of likely fluid overload. In the ED, the patient had a BUN, Cr, and eGFR of 34, 4.7, and 14 respectively. BNP was significantly elevated at 470. The patient sleeps in a recliner at home due to inability to lay flat. The patient recently started on nicardipine, which the patient's family member is concerned might be worsening the patient's edema. The patient was noted to have an DIANA in the past and had received dialysis for management, but is not known to require scheduled outpatient dialysis prior to admission. cc:: cc: Layo Ridley DO Review of Systems Review of Systems Systems Reviewed: All systems reviewed, normal except as documented Exam Vital Signs Temp Pulse Resp BP Pulse Ox O2 Del Method 98.1 F 60 18 154/83 H 98 Room Air 08/18/24 19:46 08/18/24 19:46 08/18/24 19:46 08/18/24 19:46 08/18/24 19:46 08/18/24 19:46 Narrative Exam Physical Exam: General: Alert, no acute distress. Skin: Warm, dry, intact, no obvious rash. Head: Normocephalic, atraumatic. Respiratory: Respirations unlabored on room air, no difficulty speaking. Extremities: Visible edema on BLE. Psychiatric: Cooperative, appropriate affect. Results Labs 08/19/24 04:50 08/19/24 04:50 Labs: Short CBC 08/18/24 Range/Units 12:46 WBC 5.3 (3.8-10.6) Thou/mm3 Hgb 10.9 L (13.5-16.0) g/dL Hct 31.4 L (41.0-53.0) % Plt Count 162 (140-440) Thou/mm3 BMP 08/18/24 12:46 Sodium 141 Potassium 3.7 Chloride 107 Carbon Dioxide 25.4 BUN 34 H Creatinine 4.7 H* Glucose 97 Calcium 8.8 Cardiac Enzymes 08/18/24 Range/Units 12:46 Troponin I 0.027 (0.0-0.045) ng/mL Liver Function 08/18/24 Range/Units 12:46 Total Bilirubin 0.4 (0.3-1.2) mg/dL AST 11 (0-34) U/L ALT 11 (10-49) U/L Alkaline Phosphatase 85 (46-116) U/L Albumin 3.9 (3.5-5.0) gm/dL Urine 08/18/24 Range/Units 13:10 Urine Color Lt-Yellow (Lt Yel-Yel) Urine Clarity Clear (Clear/Hazy) Urine pH 6.0 (5.0-7.0) Ur Specific [place] 1.014 (1.001-1.035) Urine Protein 1+ A (Neg - Trace) Urine Glucose (UA) Negative (Negative) Quality Measures Quality Measures none Medications Home Medications and Allergies Home Medications ?Medication ?Instructions ?Recorded ?Confirmed ?Type clonidine HCl 0.2 mg tablet 0.2 mg PO TID 08/18/24 08/18/24 History hydralazine 50 mg tablet 50 mg PO TID 08/18/24 08/18/24 History minoxidil 2.5 mg tablet 2.5 mg PO TID 08/18/24 08/18/24 History sodium bicarbonate 650 mg tablet 650 mg PO TID 08/18/24 08/18/24 History vitamin B complex-vitamin C-folic 1 tab PO Q24H 08/18/24 08/18/24 History acid 0.8 mg tablet (Nephro-Ariana) Allergies Allergy/AdvReac Type Severity Reaction Status Date / Time No Known Allergies Allergy Verified 08/18/24 12:06 Visit Medications Acetaminophen (Acetaminophen 325 Mg Tablet) 650 mg PO Q6H PRN PRN Reason: Mild Pain 1-3 or Fever >100.3 Stop: 09/17/24 16:45 Bumetanide (Bumetanide Inj 0.25 Mg/Ml Vial 4 Ml) 1 mg IVP [facility] Stop: 09/17/24 20:59 Dextrose (Dextrose 50%-Water Inj 50 Ml Syringe) 25 ml IV Q15MIN PRN PRN Reason: BG 50-70 responsive npo pt Stop: 09/17/24 17:01 Dextrose (Dextrose 50%-Water Inj 50 Ml Syringe) 50 ml IV Q15MIN PRN PRN Reason: BG <50 OR BG <70 & pt unresponsive Stop: 09/17/24 17:01 Famotidine (Famotidine 20 Mg Tablet) 20 mg PO HS RAFIA Stop: 09/17/24 20:59 Glucagon (Glucagon Inj 1 Mg Vial) 1 mg IM Q15MIN PRN PRN Reason: BG <70, and no IV access Heparin Sodium (Porcine) (Heparin Sod Inj 5000 Unit/Ml Vial) 5,000 unit SC Q12HR [facility] Stop: 09/01/24 20:59 Hydralazine HCl (Hydralazine Inj 20 Mg/Ml Vial) 10 mg IVP Q4HR PRN PRN Reason: Hypertension Stop: 09/17/24 18:52 Hydromorphone HCl (Hydromorphone Inj 2 Mg/Ml Vial) 0.5 mg IVP Q6HR PRN PRN Reason: PAIN SCALE 4-10(Mod-Sev Stop: 08/23/24 16:45 Insulin Human Lispro (Insulin Lispro (Admelog) 1 Unit/0.01 Ml Unit) 0 unit SC A[facility]S [facility]; Protocol Stop: 09/17/24 20:59 Ondansetron HCl (Ondansetron Inj 2 Mg/Ml Inj 2 Ml) 4 mg IVP Q6H PRN; Protocol PRN Reason: NAUSEA OR VOMITING Stop: 09/17/24 16:45 Sennosides (Senna Tablet) 1 tab PO QDAY [facility]; Protocol Stop: 09/18/24 08:59 Discontinued Medications Bumetanide (Bumetanide Inj 0.25 Mg/Ml Vial 4 Ml) 2 mg IVP TID RAFIA Stop: 09/17/24 21:59 Assessment & Plan Plan Mr. Beckford is a 49 year old male with a relevant medical history of brainstem stroke, HLD, CHF, and resistant HTN who presents with dyspnea and worsening BLE edema and abdominal edema. Nephrology was consulted due to concerns of DIANA in the setting of likely fluid overload. #DIANA due to acute on chronic kidney disease #Concern for cardiorenal syndrome In the ED, the patient had a BUN, Cr, and eGFR of 34, 4.7, and 14 respectively. BNP was significantly elevated at 470. The patient sleeps in a recliner at home due to inability to lay flat. The patient also has a history of elevated BUN, elevated Cr, and decreased eGFR from prior hospitalizations. His current renal function is most likely a result of chronic injury to the kidneys from poorly controlled CHF, resulting in fluid overload as evidenced by BNP levels. Initial management with diuresis is warranted, dialysis can be considered if renal function does not improve with diuresis. - Diuresis with Bumetanide 1mg IV BID to manage fluid overload status. - Kidney US to identify if hydronephrosis is present and to assess other potential causes of renal function impairment. - Continue to monitor renal function; will consider dialysis if renal function shows no improvement with diuresis - Nephrology will continue to follow Patient was discussed with the Nephrology attending, Dr. Win. Thank you for allowing us to participate in the care of this patient. Jayy Mathis, PGY-1 Attending Provider Attestation/Addendum Pt is seen and examined. labs reviewed. notes reviewed. agree with assessment and plan and findings of resident. Patricio Win MD
[2024-08-18] MEDS: HEPARIN SOD INJ 5000 UNIT/ML VIAL SC (20:33)
[2024-08-18] MEDS: FAMOTIDINE 20 MG TABLET PO (20:33)
[2024-08-18] MEDS: BUMETANIDE INJ 0.25 MG/ML VIAL 4 ML 1 MG IVP (20:33)
[2024-08-18 23:31] LABS: Protein Total, Random Urine 34 mg/dL (1-14)
[2024-08-19] VITALS (18 sets, daily range): BP systolic 156–228; BP diastolic 77–111; PULSE 65–95; RESP 16–96; TEMP 36.6–37.2; O2SAT 96–98; BMI 41.5
[2024-08-19] MEDS: BUMETANIDE INJ 0.25 MG/ML VIAL 4 ML 1 MG IVP (05:15)
[2024-08-19 06:15] LABS: Basophils # (Auto) 0.1 Thou/mm3 (0.0-0.2); Basophils % (Auto) 1 % (0-2.5); Eosinophils # (Auto) 0.2 Thou/mm3 (0.0-0.5); Eosinophils % (Auto) 4 % (0-10); Hematocrit 32.8 % (41.0-53.0); Hemoglobin 11.2 g/dL (13.5-16.0); Immature Granulocytes Auto 0.01 Thou/mm3 (0.00-0.00); Lymphocytes # (Auto) 1.1 Thou/mm3 (1.0-4.8); Lymphocytes % (Auto) 18 % (10-50); Mean Corpuscular HGB Conc 34.1 g/dl (31.0-37.0); Mean Corpuscular Hemoglobin 29.9 pg (25.0-35.0); Mean Corpuscular Volume 88 fL (80-100); Monocytes # (Auto) 0.6 Thou/mm3 (0.0-0.8); Monocytes % (Auto) 9 % (0-12); Neutrophils # (Auto) 4.3 Thou/mm3 (1.8-7.7); Neutrophils % (Auto) 68 % (37-80); Nucleated Red Blood Cell # 0.00 Thou/mm3 (0.00-0.00); Nucleated Red Blood Cell % 0 /100 WBC (0); Platelet Count 148 Thou/mm3 (140-440); RDW Standard Deviation 43.8 fL (35.1-43.9); Red Blood Count 3.75 Miln/mm3 (4.50-5.90); White Blood Count 6.4 Thou/mm3 (3.8-10.6)
[2024-08-19 06:23] LABS: INR 1.1 (0.9-1.3); Partial Thromboplastin Time 28.7 Seconds (22.0-36.0); Prothrombin Time 12.2 Seconds (9.0-12.2)
[2024-08-19 07:00] LABS: Alanine Aminotransferase 10 U/L (10-49); Albumin, Serum 4.0 gm/dL (3.5-5.0); Albumin/Globulin Ratio 1.3 (1.2-2.2); Alkaline Phosphatase 85 U/L (46-116); Anion Gap 11 (7-16); Aspartate Amino Transferase 11 U/L (0-34); BUN/Creatinine Ratio 8 Ratio (12-20); Bilirubin,Total 0.5 mg/dL (0.3-1.2); Blood Urea Nitrogen 35 mg/dL (9-23); Calcium 9.0 mg/dL (8.3-10.6); Calcium (Corrected) 9.0 mg/dL (8.5-10.1); Carbon Dioxide 25.7 mMol/L (20.0-31.0); Cardiac Risk Estimate 4.6 RATIO (4.0-6.7); Chloride 107 mMol/L (98-107); Cholesterol 179 mg/dL (132-200); Creatinine (Component) 4.4 mg/dL (0.6-1.3); Estimated Creatinine Clearance 24.2 mL/min (>60); Globulin 3.0 gm/dL (2.3-3.5); Glucose 98 mg/dL (74-106); HDL Cholesterol 39 mg/dL (40-60); LDL Cholesterol,Calculated 116 mg/dL (0-130); Magnesium 2.4 mg/dL (1.6-2.6); Osmolality,Calculated 294 (275-295); Phosphorous 3.6 mg/dL (2.4-5.1); Potassium 3.7 mMol/L (3.4-5.1); Sodium 144 mMol/L (136-145); Thyroid Stimulating Hormone 2.35 uIU/mL (0.55-4.78); Total Protein 7.0 gm/dL (5.7-8.2); Triglycerides 119 mg/dL (30-150); eGFR 15 See Note
[2024-08-19] MEDS: HEPARIN SOD INJ 5000 UNIT/ML VIAL SC ×2 (09:22→20:31)
--- NOTE | 2024-08-19 11:16 | PC.SS ---
SS met with patient regarding his d/c plan.? Pt is alert/oriented.? Pt was admitted for Anasarca.? Pt confirmed demographic and contact information is correct on facesheet.? Pt resides with and kids.? Pt ambulates independently without assistance or DME.? Pt is ok with all ADLs.? 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 Patient?s pharmacy of choice is [facility].? Pt named his , Dorcas Matthews medical decision maker if he is unable.? Patient?s choice is to return home upon d/c.? Pt states he is diabetic, requires glucometer, and test strips.? Pt states he is not on dialysis.? Pt followed up with PCP 2 weeks ago.? will provide transportation. D/C plan:? Return home Next of Kin:? Dorcas Matthews, , phone# [phone] PCP:? Dr. Cobb from [facility] Address:? Correct on facesheet
--- NOTE | 2024-08-19 11:29 | ESPR_ITS ---
<Statement entered by Jaimie Paulson MD - 08/26/24 14:54> I reviewed above note and agree with findings and plans. I have also personally examined the patient with medicine team and went over assessment and plan with medical team including internet marketing analyst and resident physician. Documentation for date of: 08/19/24 Subjective Subjective Interval history: 08/19/2024: Patient examined at bedside. Patient continues to be fluid overloaded. Plus 2+ peripheral edema. Continue with aggressive diuresis. No dialysis planned at this time. Oral clonidinze and hydralazine restarted, part of home medication. 200/1350/-1150. Bumex increased to Bumex 2 mg BID. Patient has been examined at bedside this morning.? A.m. vitals and labs reviewed.? Patient still complains of worsening abdominal and lower extremity edema and orthopnea.? Denies chest pain, headaches, vision changes, and cough. Today, Patient systolic blood pressure in high 180s with hydralazine as prn.? Patient's home medication was reconciled after medication brought from home.? Home medication includes losartan, nicardipine, hydralazine, and clonidine.? Hydralazine and clonidine resumed.? Currently holding off on losartan and nicardipine given DIANA and lower peripheral edema.? Rapid response called secondary to systolic blood pressure 228/108.? Patient's p.o. medication already on board and was administered during rapid.? Repeat blood pressure check systolic blood pressure 188.? No IV antihypertensives administered to avoid drop greater than 20% and blood pressure.? Continue patient's home medication p.o. hydralazine as needed IV 6 hours. Exam Vital Signs Temp Pulse Resp BP Pulse Ox O2 Del Method 98.2 F 72 16 160/91 H 97 Room Air 08/19/24 07:56 08/19/24 07:56 08/19/24 07:56 08/19/24 07:56 08/19/24 07:56 08/19/24 04:00 Narrative Exam GENERAL: Awake, alert, cooperative NEURO: Numbness in bilateral legs HEENT: Neck supple, Oral mucosa pink, pharynx without exudates, conjunctiva slightly red HEART: Normal Heart Sounds LUNGS: Lungs sound diminished at the bases, no crackles or wheezing ABDOMEN: significantly distended, soft without tenderness, No guarding or rebound tenderness SKIN: No Rash or ecchymoses Extremities: Bilateral lower extremities with 4+ pitting edema. No ulcers or abrasions Objective Labs 08/19/24 04:50 08/19/24 04:50 Labs: Laboratory Results - last 24 hr 08/18/24 08/18/24 08/18/24 12:46 13:10 17:11 WBC 5.3 RBC 3.62 L Hgb 10.9 L Hct 31.4 L MCV 87 MCH 30.1 MCHC 34.7 RDW Std Deviation 43.3 Plt Count 162 Neut % (Auto) 62 Lymph % (Auto) 21 [place] % (Auto) 11 Eos % (Auto) 5 Baso % (Auto) 1 Neut # (Auto) 3.3 Lymph # (Auto) 1.1 [place] # (Auto) 0.6 Eos # (Auto) 0.2 Baso # (Auto) 0.1 Immature Gran # (Auto) 0.01 H Absolute Nucleated RBC 0.00 Immature Gran % 0 Nucleated RBC % 0 PT 12.1 INR 1.1 APTT 28.7 Sodium 141 Potassium 3.7 Chloride 107 Carbon Dioxide 25.4 Anion Gap 9 BUN 34 H Creatinine 4.7 H* Estim Creat Clear Calc 22.5 L eGFR 14 L* BUN/Creatinine Ratio 7 L Glucose 97 Calculated Osmolality 288 Calcium 8.8 Corrected Calcium 8.9 Phosphorus Magnesium Total Bilirubin 0.4 AST 11 ALT 11 Alkaline Phosphatase 85 Troponin I 0.027 B-Natriuretic Peptide 470 H* Total Protein 6.8 Albumin 3.9 Globulin 2.9 Albumin/Globulin Ratio 1.3 Triglycerides Cholesterol LDL Cholesterol, Calc HDL Cholesterol Cholesterol/HDL Ratio Lipase 26 TSH Ur Collection Type Clean Catch Urine Color Lt-Yellow Urine Clarity Clear Urine pH 6.0 Ur Specific [place] 1.014 Urine Protein 1+ A Urine Glucose (UA) Negative Urine Ketones Negative Urine Blood Negative Urine Nitrite Negative Urine Bilirubin Negative Urine Urobilinogen (Auto) Negative Ur Leukocyte Esterase Negative Urine RBC 1 Urine WBC 1 Ur Squamous Epith Cells < 1 Urine Bacteria None Ur Random Creatinine 61 U Random Total Protein Ur Random Sodium 82.6 Ur Random Potassium 30 Ur Random Chloride 69.1 Urine Opiates Screen Negative Urine Fentanyl Screen Negative Ur Barbiturates Screen Negative U Amphetamin/Meth Scrn Negative U Benzodiazepines Scrn Negative U Cocaine Metab Screen Negative U Marijuana (THC) Screen Negative 08/18/24 08/19/24 23:11 04:50 WBC 6.4 RBC 3.75 L Hgb 11.2 L Hct 32.8 L MCV 88 MCH 29.9 MCHC 34.1 RDW Std Deviation 43.8 Plt Count 148 Neut % (Auto) 68 Lymph % (Auto) 18 [place] % (Auto) 9 Eos % (Auto) 4 Baso % (Auto) 1 Neut # (Auto) 4.3 Lymph # (Auto) 1.1 [place] # (Auto) 0.6 Eos # (Auto) 0.2 Baso # (Auto) 0.1 Immature Gran # (Auto) 0.01 H Absolute Nucleated RBC 0.00 Immature Gran % 0 Nucleated RBC % 0 PT 12.2 INR 1.1 APTT 28.7 Sodium 144 Potassium 3.7 Chloride 107 Carbon Dioxide 25.7 Anion Gap 11 BUN 35 H Creatinine 4.4 H* Estim Creat Clear Calc 24.2 L eGFR 15 L BUN/Creatinine Ratio 8 L Glucose 98 Calculated Osmolality 294 Calcium 9.0 Corrected Calcium 9.0 Phosphorus 3.6 Magnesium 2.4 Total Bilirubin 0.5 AST 11 ALT 10 Alkaline Phosphatase 85 Troponin I B-Natriuretic Peptide Total Protein 7.0 Albumin 4.0 Globulin 3.0 Albumin/Globulin Ratio 1.3 Triglycerides 119 Cholesterol 179 LDL Cholesterol, Calc 116 HDL Cholesterol 39 L Cholesterol/HDL Ratio 4.6 Lipase TSH 2.35 Ur Collection Type Urine Color Urine Clarity Urine pH Ur Specific [place] Urine Protein Urine Glucose (UA) Urine Ketones Urine Blood Urine Nitrite Urine Bilirubin Urine Urobilinogen (Auto) Ur Leukocyte Esterase Urine RBC Urine WBC Ur Squamous Epith Cells Urine Bacteria Ur Random Creatinine U Random Total Protein 34 H Ur Random Sodium Ur Random Potassium Ur Random Chloride Urine Opiates Screen Urine Fentanyl Screen Ur Barbiturates Screen U Amphetamin/Meth Scrn U Benzodiazepines Scrn U Cocaine Metab Screen U Marijuana (THC) Screen Quality Measures Quality Measures none Assessment & Plan Assessment Current Active Medications: Generic Name Dose Route Start Last Admin Trade Name Freq PRN Reason Stop Dose Admin Acetaminophen 650 mg 08/18/24 16:46 Acetaminophen 325 Mg Tablet PO 09/17/24 16:45 Q6H PRN Mild Pain 1-3 or Fever >100.3 Bumetanide 2 mg 08/19/24 18:00 Bumetanide Inj 0.25 Mg/Ml Vial 4 Ml IVP 09/18/24 17:59 BIDD RAFIA Dextrose 25 ml 08/18/24 17:02 Dextrose 50%-Water Inj 50 Ml Syringe IV 09/17/24 17:01 Q15MIN PRN BG 50-70 responsive npo pt Dextrose 50 ml 08/18/24 17:02 Dextrose 50%-Water Inj 50 Ml Syringe IV 09/17/24 17:01 Q15MIN PRN BG <50 OR BG <70 & pt unresponsive Famotidine 20 mg 08/18/24 21:00 08/18/24 20:33 Famotidine 20 Mg Tablet PO 09/17/24 20:59 20 mg HS RAFIA Administration Glucagon 1 mg 08/18/24 17:02 Glucagon Inj 1 Mg Vial IM Q15MIN PRN BG <70, and no IV access Heparin Sodium (Porcine) 5,000 unit 08/18/24 21:00 08/19/24 09:22 Heparin Sod Inj 5000 Unit/Ml Vial SC 09/01/24 20:59 5,000 unit Q12HR RAFIA Administration Hydralazine HCl 10 mg 08/18/24 18:53 Hydralazine Inj 20 Mg/Ml Vial IVP 09/17/24 18:52 Q4HR PRN Hypertension Hydromorphone HCl 0.5 mg 08/18/24 16:46 Hydromorphone Inj 2 Mg/Ml Vial IVP 08/23/24 16:45 Q6HR PRN PAIN SCALE 4-10(Mod-Sev Insulin Human Lispro 0 unit 08/18/24 21:00 08/19/24 09:20 Insulin Lispro (Admelog) 1 Unit/0.01 Ml Unit SC 09/17/24 20:59 Not Given ACHS [facility] Protocol Ondansetron HCl 4 mg 08/18/24 16:46 Ondansetron Inj 2 Mg/Ml Inj 2 Ml IVP 09/17/24 16:45 Q6H PRN NAUSEA OR VOMITING Protocol Sennosides 1 tab 08/19/24 09:00 08/19/24 09:20 Senna Tablet PO 09/18/24 08:59 1 tab QDAY RAFIA Administration Protocol Plan # DIANA on Chronic Kidney Disease # Resistant Hypertension # ?Cardiorenal Syndrome - BUN of 35, creatinine was 4.4 and EGFR of 15.? Albumin of 4.0. - Renal ultrasound (08/18/2024): Regular cortical thinning, 5 mm mid pole left renal calculus, No hydronephrosis. Plan: -Repeat Renal US -Urine electrolytes, Urine protein and Urea -Avoid nephrotoxic and renally dise medications -strict ins and outs -Consulted Cobbler App[employer] Dr. Win, appreciate recommendations - Continue hydralazine and clonidine p.o. #Acute decompensated heart failure exacerbation - EKG: sinus bradycardia at a rate of 59 with left axis deviation. No T wave abnormalities. No STEMI. - CXR: Edema at the lung bases with moderate to large bilateral pleural effusions with prominent vascular congestion including central vascular engorgement. - Bilateral lower extremity venous duplex: No evidence of deep vein thrombosis bilaterally. - Past Echo (05/21/2024): EF 60-65%. Moderate to severe concentric LVH. Diastolic dysfunction stage I. Plan: - Bumex 1mg IV bid -Hold Carvedilol given worsening CHF exacerbation -TSH and Lipid panel - Strict ins and out -K>4 and Mg >2 -Daily weights -Fluid restrictions 1800 #History Diabetes Mellitus Type 2 Previous A1c of 6.2 May of 2024 which showed pre-diabetes range and had been on metformin but was stopped prior to discharge given CrCl. Patient was asked to follow up with pcp and nephrology for further recommendations. Patient has not followed up with nephrology. Plan -sliding scale -fasting glucose AM -A1c AM Health Maintenance: Disp: Pt is currently admitted to floors for further management of DIANA on CKD and CHF exacerbation, awaiting improved ANASARCA FEN: renal diet DVT: on subQ heparin 12 hrs Code: Full Assessment and plan discussed with my attending physician Dr. Paulson and Dr. Macias (PGY-2) Dr. Ruano (PGY-1)- Internal medicine resident
[2024-08-19] MEDS: INSULIN LISPRO (AdmeLOG) 1 UNIT/0.01 ML UNIT SC ×2 (12:41→17:56)
[2024-08-19] MEDS: hydrALAZINE INJ 20 MG/ML VIAL 10 MG IVP ×2 (15:21→19:28)
--- NOTE | 2024-08-19 16:15 | PD.RESEVENT ---
Documentation for date of: 08/19/24 Event Note Event Note: Rapid Response 16:30 for systolic blood pressure of 228. Patient denied chest pain, chest pressure or shortness of breath. Peripheral edema still present 3+. No crackles noted on physical exam. Cumulative -1450 during this visit. Patient feels anxious during ths admission given recent CVA and worsening hypertension. Oral Clonidine and oral hydralazine added to MAR prior to rapid. Clonidine administered 0.2 mg PO oral given as part of patients home medication. Repeat blood pressure noted to have a 20% drop, no further anti-hypertensive medication given. Labetolol discontinued. Hydroxyzine given X 1. - The patient's plan was discussed with attending Dr. Khurram Macias MD PGY2 Internal Medicine
--- NOTE | 2024-08-19 16:23 | PD.RESPRO ---
Documentation for date of: 08/19/24 Subjective Subjective Interval history: Overnight events: No acute events overnight. Patient was seen and examined at bedside. AM vitals and labs reviewed. Renal function lab values improving with diuresis using Bumex 1mg IV BID. BUN 35, Cr 4.4, eGFR 15. Ins/Outs 200/1350. No complaints at this time. Review of systems otherwise negative except for what is mentioned above. Exam Vital Signs Temp Pulse Resp BP Pulse Ox O2 Del Method 98.9 F 68 16 202/109 H 98 Room Air 08/19/24 15:41 08/19/24 15:41 08/19/24 15:41 08/19/24 15:41 08/19/24 15:41 08/19/24 04:00 Narrative Exam Physical Exam: General: Alert, no acute distress. Skin: Warm, dry, intact, no obvious rash. Head: Normocephalic, atraumatic. Eye: Normal conjunctiva, PERRL. Respiratory: Respirations unlabored on room air. Speaking without difficulty. Extremities: 2+ edema, no cyanosis, no clubbing. Neuro: No focal deficits observed. Conversant, moving all extremities. No overt cerebellar signs/incoordination. Psychiatric: Cooperative, appropriate affect. Objective Labs 08/21/24 05:15 08/21/24 05:15 Labs: Laboratory Results - last 24 hr 08/18/24 08/18/24 08/19/24 17:11 23:11 04:50 WBC 6.4 RBC 3.75 L Hgb 11.2 L Hct 32.8 L MCV 88 MCH 29.9 MCHC 34.1 RDW Std Deviation 43.8 Plt Count 148 Neut % (Auto) 68 Lymph % (Auto) 18 [place] % (Auto) 9 Eos % (Auto) 4 Baso % (Auto) 1 Neut # (Auto) 4.3 Lymph # (Auto) 1.1 [place] # (Auto) 0.6 Eos # (Auto) 0.2 Baso # (Auto) 0.1 Immature Gran # (Auto) 0.01 H Absolute Nucleated RBC 0.00 Immature Gran % 0 Nucleated RBC % 0 PT 12.2 INR 1.1 APTT 28.7 Sodium 144 Potassium 3.7 Chloride 107 Carbon Dioxide 25.7 Anion Gap 11 BUN 35 H Creatinine 4.4 H* Estim Creat Clear Calc 24.2 L eGFR 15 L BUN/Creatinine Ratio 8 L Glucose 98 Calculated Osmolality 294 Calcium 9.0 Corrected Calcium 9.0 Phosphorus 3.6 Magnesium 2.4 Total Bilirubin 0.5 AST 11 ALT 10 Alkaline Phosphatase 85 Total Protein 7.0 Albumin 4.0 Globulin 3.0 Albumin/Globulin Ratio 1.3 Triglycerides 119 Cholesterol 179 LDL Cholesterol, Calc 116 HDL Cholesterol 39 L Cholesterol/HDL Ratio 4.6 TSH 2.35 Ur Random Creatinine 61 U Random Total Protein 34 H Ur Random Sodium 82.6 Ur Random Potassium 30 Ur Random Chloride 69.1 Quality Measures Quality Measures none Assessment & Plan Assessment Current Active Medications: Generic Name Dose Route Start Last Admin Trade Name Freq PRN Reason Stop Dose Admin Acetaminophen 650 mg 08/18/24 16:46 Acetaminophen 325 Mg Tablet PO 09/17/24 16:45 Q6H PRN Mild Pain 1-3 or Fever >100.3 Bumetanide 2 mg 08/19/24 18:00 Bumetanide Inj 0.25 Mg/Ml Vial 4 Ml IVP 09/18/24 17:59 BIDD RAFIA Clonidine 0.2 mg 08/19/24 16:15 Clonidine Hcl 0.1 Mg Tablet PO 09/18/24 16:14 TID RAFIA Dextrose 25 ml 08/18/24 17:02 Dextrose 50%-Water Inj 50 Ml Syringe IV 09/17/24 17:01 Q15MIN PRN BG 50-70 responsive npo pt Dextrose 50 ml 08/18/24 17:02 Dextrose 50%-Water Inj 50 Ml Syringe IV 09/17/24 17:01 Q15MIN PRN BG <50 OR BG <70 & pt unresponsive Famotidine 20 mg 08/18/24 21:00 08/18/24 20:33 Famotidine 20 Mg Tablet PO 09/17/24 20:59 20 mg HS RAFIA Administration Glucagon 1 mg 08/18/24 17:02 Glucagon Inj 1 Mg Vial IM Q15MIN PRN BG <70, and no IV access Heparin Sodium (Porcine) 5,000 unit 08/18/24 21:00 08/19/24 09:22 Heparin Sod Inj 5000 Unit/Ml Vial SC 09/01/24 20:59 5,000 unit Q12HR [facility] Administration Hydralazine HCl 50 mg 08/19/24 22:00 Hydralazine Hcl 25 Mg Tablet PO 09/18/24 21:59 TID RAFIA Hydralazine HCl 10 mg 08/19/24 16:09 Hydralazine Inj 20 Mg/Ml Vial IVP 09/17/24 18:52 Q6HR PRN Hypertension Hydromorphone HCl 0.5 mg 08/18/24 16:46 Hydromorphone Inj 2 Mg/Ml Vial IVP 08/23/24 16:45 Q6HR PRN PAIN SCALE 4-10(Mod-Sev Insulin Human Lispro 0 unit 08/18/24 21:00 08/19/24 12:41 Insulin Lispro (Admelog) 1 Unit/0.01 Ml Unit SC 09/17/24 20:59 1 unit ACHS [facility] Administration Protocol Ondansetron HCl 4 mg 08/18/24 16:46 Ondansetron Inj 2 Mg/Ml Inj 2 Ml IVP 09/17/24 16:45 Q6H PRN NAUSEA OR VOMITING Protocol Sennosides 1 tab 08/19/24 09:00 08/19/24 09:20 Senna Tablet PO 09/18/24 08:59 1 tab QDAY [facility] Administration Protocol Plan Mr. Beckford is a 49 year old male with a relevant medical history of brainstem stroke, HLD, CHF, and resistant HTN who presents with dyspnea and worsening BLE edema and abdominal edema. Nephrology was consulted due to concerns of DIANA in the setting of likely fluid overload. #DIANA due to acute on chronic kidney disease #Concern for cardiorenal syndrome In the ED, the patient had a BUN, Cr, and eGFR of 34, 4.7, and 14 respectively. BNP was significantly elevated at 470. The patient sleeps in a recliner at home due to inability to lay flat. The patient also has a history of elevated BUN, elevated Cr, and decreased eGFR from prior hospitalizations. His current renal function is most likely a result of chronic injury to the kidneys from poorly controlled CHF, resulting in fluid overload as evidenced by BNP levels. Initial management with diuresis is warranted, dialysis can be considered if renal function does not improve with diuresis. - Continue diuresis with Bumetanide 1mg IV BID to manage fluid overload status. - Continue to monitor renal function; will consider dialysis if renal function shows no improvement with diuresis - Nephrology will continue to follow Patient was discussed with the Nephrology attending, Dr. Win. Thank you for allowing us to participate in the care of this patient. Jayy Mathis, PGY-1 Attending Provider Attestation/Addendum Pt is seen and examined. labs and investigations are reviewed. Agree with assessment and plan and findings by resident. Patricio Win MD
--- NOTE | 2024-08-19 16:33 | XR_ITS ---
Examination: AP chest single view Technique one AP portable semiupright chest single view Date and time: August 19, 2024, 1716 hours Comparison August 18, 2024 INDICATIONS: Shortness of breath this week FINDINGS: Mild enlargement in cardiac contour Moderate vascular congestion Opacity right base consistent with pneumonia Small right pleural effusion IMPRESSION: Moderate vascular congestion. Right base pneumonia. Small right pleural effusion
[2024-08-19] MEDS: BUMETANIDE INJ 0.25 MG/ML VIAL 4 ML 2 MG IVP (17:57)
--- NOTE | 2024-08-19 18:01 | PC.NURSE ---
1630 pt c/o pain in R ear, Dr. Macias aware
[2024-08-19] MEDS: FAMOTIDINE 20 MG TABLET PO (20:32)
[2024-08-20] VITALS (20 sets, daily range): BP systolic 147–199; BP diastolic 83–115; PULSE 59–89; RESP 16–98; TEMP 36.2–38.3; O2SAT 94–98; BMI 41.0
[2024-08-20] MEDS: BUMETANIDE INJ 0.25 MG/ML VIAL 4 ML 2 MG IVP ×2 (05:10→17:41)
[2024-08-20 06:42] LABS: Basophils # (Auto) 0.0 Thou/mm3 (0.0-0.2); Basophils % (Auto) 1 % (0-2.5); Eosinophils # (Auto) 0.1 Thou/mm3 (0.0-0.5); Eosinophils % (Auto) 2 % (0-10); Hematocrit 30.8 % (41.0-53.0); Hemoglobin 10.4 g/dL (13.5-16.0); Immature Granulocytes Auto 0.02 Thou/mm3 (0.00-0.00); Lymphocytes # (Auto) 1.1 Thou/mm3 (1.0-4.8); Lymphocytes % (Auto) 19 % (10-50); Mean Corpuscular HGB Conc 33.8 g/dl (31.0-37.0); Mean Corpuscular Hemoglobin 29.9 pg (25.0-35.0); Mean Corpuscular Volume 89 fL (80-100); Monocytes # (Auto) 0.6 Thou/mm3 (0.0-0.8); Monocytes % (Auto) 10 % (0-12); Neutrophils # (Auto) 4.0 Thou/mm3 (1.8-7.7); Neutrophils % (Auto) 68 % (37-80); Nucleated Red Blood Cell # 0.00 Thou/mm3 (0.00-0.00); Nucleated Red Blood Cell % 0 /100 WBC (0); Platelet Count 151 Thou/mm3 (140-440); RDW Standard Deviation 44.3 fL (35.1-43.9); Red Blood Count 3.48 Miln/mm3 (4.50-5.90); White Blood Count 5.9 Thou/mm3 (3.8-10.6)
[2024-08-20 07:22] LABS: Alanine Aminotransferase 7 U/L (10-49); Albumin, Serum 3.7 gm/dL (3.5-5.0); Albumin/Globulin Ratio 1.3 (1.2-2.2); Alkaline Phosphatase 75 U/L (46-116); Anion Gap 12 (7-16); Aspartate Amino Transferase < 10 U/L (0-34); BUN/Creatinine Ratio 7 Ratio (12-20); Bilirubin,Total 0.5 mg/dL (0.3-1.2); Blood Urea Nitrogen 29 mg/dL (9-23); Calcium 8.6 mg/dL (8.3-10.6); Calcium (Corrected) 8.8 mg/dL (8.5-10.1); Carbon Dioxide 26.4 mMol/L (20.0-31.0); Chloride 106 mMol/L (98-107); Creatinine (Component) 4.2 mg/dL (0.6-1.3); Estimated Creatinine Clearance 25.1 mL/min (>60); Globulin 2.8 gm/dL (2.3-3.5); Glucose 134 mg/dL (74-106); Magnesium 2.3 mg/dL (1.6-2.6); Osmolality,Calculated 294 (275-295); Phosphorous 3.1 mg/dL (2.4-5.1); Potassium 3.7 mMol/L (3.4-5.1); Sodium 144 mMol/L (136-145); Total Protein 6.5 gm/dL (5.7-8.2); eGFR 16 See Note
--- NOTE | 2024-08-20 08:48 | PD.RESPRO ---
Documentation for date of: 08/20/24 Subjective Subjective Interval history: Overnight events: No acute events overnight. Rapid response called yesterday for systolic BP of 228. Patient was seen and examined at bedside. AM vitals and labs reviewed. Communicated with patient using Medical customer service operator. Renal function improving. BUN 29, Cr 4.2, eGFR 16. No complaints at this time other than blurry vision, but this has been present since his stroke in a prior hospitalization. Review of systems otherwise negative except for what is mentioned above. Exam Vital Signs Temp Pulse Resp BP Pulse Ox O2 Del Method 99.7 F 78 23 H 147/89 H 96 Room Air 08/20/24 04:00 08/20/24 06:36 08/20/24 04:00 08/20/24 06:36 08/20/24 04:00 08/20/24 04:00 Narrative Exam Physical Exam: General: Alert, no acute distress. Skin: Warm, dry, intact, no obvious rash. Head: Normocephalic, atraumatic. Eye: Normal conjunctiva, PERRL. Cardiovascular: Regular rate and rhythm, no murmur, +S1/S2. Respiratory: Lungs are clear to auscultation, respirations unlabored, no crackles, no wheezing. Gastrointestinal: Soft, nontender, distended. No guarding or rebound tenderness. Extremities: 2+ edema BLE to calves, no cyanosis, no clubbing. 2+ radial pulse bilaterally, 1+ pedal pulse bilaterally. Neuro: No focal deficits observed. Conversant, moving all extremities. No overt cerebellar signs/incoordination. Psychiatric: Cooperative, appropriate affect. Objective Labs 08/21/24 05:15 08/21/24 05:15 Labs: Laboratory Results - last 24 hr 08/20/24 05:40 WBC 5.9 RBC 3.48 L Hgb 10.4 L Hct 30.8 L MCV 89 MCH 29.9 MCHC 33.8 RDW Std Deviation 44.3 H Plt Count 151 Neut % (Auto) 68 Lymph % (Auto) 19 Norman % (Auto) 10 Eos % (Auto) 2 Baso % (Auto) 1 Neut # (Auto) 4.0 Lymph # (Auto) 1.1 Norman # (Auto) 0.6 Eos # (Auto) 0.1 Baso # (Auto) 0.0 Immature Gran # (Auto) 0.02 H Absolute Nucleated RBC 0.00 Immature Gran % 0 Nucleated RBC % 0 Sodium 144 Potassium 3.7 Chloride 106 Carbon Dioxide 26.4 Anion Gap 12 BUN 29 H Creatinine 4.2 H* Estim Creat Clear Calc 25.1 L eGFR 16 L BUN/Creatinine Ratio 7 L Glucose 134 H Calculated Osmolality 294 Calcium 8.6 Corrected Calcium 8.8 Phosphorus 3.1 Magnesium 2.3 Total Bilirubin 0.5 AST < 10 ALT 7 L Alkaline Phosphatase 75 Total Protein 6.5 Albumin 3.7 Globulin 2.8 Albumin/Globulin Ratio 1.3 Quality Measures Quality Measures none Assessment & Plan Assessment Current Active Medications: Generic Name Dose Route Start Last Admin Trade Name Freq PRN Reason Stop Dose Admin Acetaminophen 650 mg 08/18/24 16:46 Acetaminophen 325 Mg Tablet PO 09/17/24 16:45 Q6H PRN Mild Pain 1-3 or Fever >100.3 Bumetanide 2 mg 08/19/24 18:00 08/20/24 05:10 Bumetanide Inj 0.25 Mg/Ml Vial 4 Ml IVP 09/18/24 17:59 2 mg BIDD RAFIA Administration Clonidine 0.2 mg 08/19/24 16:15 08/20/24 05:09 Clonidine Hcl 0.1 Mg Tablet PO 09/18/24 16:14 0.2 mg TID RAFIA Administration Dextrose 25 ml 08/18/24 17:02 Dextrose 50%-Water Inj 50 Ml Syringe IV 09/17/24 17:01 Q15MIN PRN BG 50-70 responsive npo pt Dextrose 50 ml 08/18/24 17:02 Dextrose 50%-Water Inj 50 Ml Syringe IV 09/17/24 17:01 Q15MIN PRN BG <50 OR BG <70 & pt unresponsive Famotidine 20 mg 08/18/24 21:00 08/19/24 20:32 Famotidine 20 Mg Tablet PO 09/17/24 20:59 20 mg HS RAFIA Administration Glucagon 1 mg 08/18/24 17:02 Glucagon Inj 1 Mg Vial IM Q15MIN PRN BG <70, and no IV access Heparin Sodium (Porcine) 5,000 unit 08/18/24 21:00 08/19/24 20:31 Heparin Sod Inj 5000 Unit/Ml Vial SC 09/01/24 20:59 5,000 unit Q12HR RAFIA Administration Hydralazine HCl 50 mg 08/19/24 22:00 08/20/24 05:09 Hydralazine Hcl 25 Mg Tablet PO 09/18/24 21:59 50 mg TID RAFIA Administration Hydralazine HCl 10 mg 08/19/24 16:09 08/19/24 19:28 Hydralazine Inj 20 Mg/Ml Vial IVP 09/17/24 18:52 10 mg Q6HR PRN Administration Hypertension Hydromorphone HCl 0.5 mg 08/18/24 16:46 Hydromorphone Inj 2 Mg/Ml Vial IVP 08/23/24 16:45 Q6HR PRN PAIN SCALE 4-10(Mod-Sev Insulin Human Lispro 0 unit 08/18/24 21:00 08/20/24 07:53 Insulin Lispro (Admelog) 1 Unit/0.01 Ml Unit SC 09/17/24 20:59 Not Given ACHS RAFIA Protocol Melatonin 3 mg 08/19/24 16:39 Melatonin 3 Mg Tablet PO 09/18/24 20:59 HS PRN sleep Ondansetron HCl 4 mg 08/18/24 16:46 Ondansetron Inj 2 Mg/Ml Inj 2 Ml IVP 09/17/24 16:45 Q6H PRN NAUSEA OR VOMITING Protocol Sennosides 1 tab 08/19/24 09:00 08/19/24 09:20 Senna Tablet PO 09/18/24 08:59 1 tab QDAY RAFIA Administration Protocol Plan Mr. Beckford is a 49 year old male with a relevant medical history of brainstem stroke, HLD, CHF, and resistant HTN who presents with dyspnea and worsening BLE edema and abdominal edema. Nephrology was consulted due to concerns of DIANA in the setting of likely fluid overload. #DIANA due to acute on chronic kidney disease #Concern for cardiorenal syndrome In the ED, the patient had a BUN, Cr, and eGFR of 34, 4.7, and 14 respectively. BNP was significantly elevated at 470. The patient sleeps in a recliner at home due to inability to lay flat. The patient also has a history of elevated BUN, elevated Cr, and decreased eGFR from prior hospitalizations. His current renal function is most likely a result of chronic injury to the kidneys from poorly controlled CHF, resulting in fluid overload as evidenced by BNP levels. Initial management with diuresis is warranted, dialysis can be considered if renal function does not improve with diuresis. - Continue diuresis with Bumetanide 2mg IV BID to manage fluid overload status. - Continue to monitor renal function; will consider dialysis if renal function shows no improvement with diuresis - Nephrology will continue to follow Patient was discussed with the Nephrology attending, Dr. Win. Thank you for allowing us to participate in the care of this patient. Jayy Mathis, PGY-1 Attending Provider Attestation/Addendum Pt is seen and examined. labs and investigations are reviewed. Agree with assessment and plan and findings by resident. Patricio Win MD
[2024-08-20] MEDS: HEPARIN SOD INJ 5000 UNIT/ML VIAL SC ×2 (09:14→21:03)
--- NOTE | 2024-08-20 09:56 | ESPR_ITS ---
<Statement entered by Jaimie Paulson MD - 08/26/24 14:55> I reviewed above note and agree with findings and plans. I have also personally examined the patient with medicine team and went over assessment and plan with medical team including human resource intern and resident physician. Documentation for date of: 08/20/24 Subjective Subjective Interval history: Overnight, patient was given hydralazine x1 for BP of 180/95. Patient seen and examined at bedside this AM. Feeling well, denies chest pain, shortness of breath, and headache. Lower extremity edema improved significantly. Labs and vitals were reviewed. BP 147/89 this morning, worsened throughout the day. Restarted on home nicardipine. Creatinine and BUN are improving, GFR 16. Diuresing well, I/O -140mL. No further complaints at this time. Translation was provided by interpretation services. Later in the day, patient was feeling anxious again and requested medication. Started on hydroxyzine 12.5mg PO HS. Review of systems otherwise negative except what is mentioned above. Exam Vital Signs Temp Pulse Resp BP Pulse Ox O2 Del Method 98.2 F 69 29 H 178/90 H 94 L Room Air 08/20/24 08:00 08/20/24 08:00 08/20/24 08:00 08/20/24 08:00 08/20/24 08:00 08/20/24 08:00 Narrative Exam Physical Exam General: Awake and in no acute distress. Conversational and non-toxic appearing. HEENT: Normocephalic, atraumatic, mucous membranes moist. Heart: Regular rate and rhythm, normal S1 and S2, no murmurs. Lungs: Clear to auscultation with no wheezing or crackles. Abdomen: Soft, nondistended, nontender, positive bowel sounds. No guarding or rebound tenderness. Neurologic: Alert and oriented x3, no gross neurological deficit, and patient able to move all 4 extremities. Numbness in legs bilaterally. Extremities: 2+ pitting lower extremity edema bilaterally. Skin: No rash or ecchymoses. Objective Labs 08/20/24 05:40 08/20/24 05:40 Labs: Laboratory Results - last 24 hr 08/20/24 05:40 WBC 5.9 RBC 3.48 L Hgb 10.4 L Hct 30.8 L MCV 89 MCH 29.9 MCHC 33.8 RDW Std Deviation 44.3 H Plt Count 151 Neut % (Auto) 68 Lymph % (Auto) 19 Winkler % (Auto) 10 Eos % (Auto) 2 Baso % (Auto) 1 Neut # (Auto) 4.0 Lymph # (Auto) 1.1 Winkler # (Auto) 0.6 Eos # (Auto) 0.1 Baso # (Auto) 0.0 Immature Gran # (Auto) 0.02 H Absolute Nucleated RBC 0.00 Immature Gran % 0 Nucleated RBC % 0 Sodium 144 Potassium 3.7 Chloride 106 Carbon Dioxide 26.4 Anion Gap 12 BUN 29 H Creatinine 4.2 H* Estim Creat Clear Calc 25.1 L eGFR 16 L BUN/Creatinine Ratio 7 L Glucose 134 H Calculated Osmolality 294 Calcium 8.6 Corrected Calcium 8.8 Phosphorus 3.1 Magnesium 2.3 Total Bilirubin 0.5 AST < 10 ALT 7 L Alkaline Phosphatase 75 Total Protein 6.5 Albumin 3.7 Globulin 2.8 Albumin/Globulin Ratio 1.3 Quality Measures Quality Measures none Assessment & Plan Assessment Current Active Medications: Generic Name Dose Route Start Last Admin Trade Name Freq PRN Reason Stop Dose Admin Acetaminophen 650 mg 08/18/24 16:46 Acetaminophen 325 Mg Tablet PO 09/17/24 16:45 Q6H PRN Mild Pain 1-3 or Fever >100.3 Bumetanide 2 mg 08/19/24 18:00 08/20/24 05:10 Bumetanide Inj 0.25 Mg/Ml Vial 4 Ml IVP 09/18/24 17:59 2 mg BIDD RAFIA Administration Clonidine 0.2 mg 08/19/24 16:15 08/20/24 05:09 Clonidine Hcl 0.1 Mg Tablet PO 09/18/24 16:14 0.2 mg TID RAFIA Administration Dextrose 25 ml 08/18/24 17:02 Dextrose 50%-Water Inj 50 Ml Syringe IV 09/17/24 17:01 Q15MIN PRN BG 50-70 responsive npo pt Dextrose 50 ml 08/18/24 17:02 Dextrose 50%-Water Inj 50 Ml Syringe IV 09/17/24 17:01 Q15MIN PRN BG <50 OR BG <70 & pt unresponsive Famotidine 20 mg 08/18/24 21:00 08/19/24 20:32 Famotidine 20 Mg Tablet PO 09/17/24 20:59 20 mg HS RAFIA Administration Glucagon 1 mg 07/02/25 17:02 Glucagon Inj 1 Mg Vial IM Q15MIN PRN BG <70, and no IV access Heparin Sodium (Porcine) 5,000 unit 08/18/24 21:00 08/20/24 09:14 Heparin Sod Inj 5000 Unit/Ml Vial SC 09/01/24 20:59 5,000 unit Q12HR RAFIA Administration Hydralazine HCl 50 mg 08/19/24 22:00 08/20/24 05:09 Hydralazine Hcl 25 Mg Tablet PO 09/18/24 21:59 50 mg TID RAFIA Administration Hydralazine HCl 10 mg 08/19/24 16:09 08/19/24 19:28 Hydralazine Inj 20 Mg/Ml Vial IVP 09/17/24 18:52 10 mg Q6HR PRN Administration Hypertension Hydromorphone HCl 0.5 mg 08/18/24 16:46 Hydromorphone Inj 2 Mg/Ml Vial IVP 08/23/24 16:45 Q6HR PRN PAIN SCALE 4-10(Mod-Sev Insulin Human Lispro 0 unit 08/18/24 21:00 08/20/24 07:53 Insulin Lispro (Admelog) 1 Unit/0.01 Ml Unit SC 09/17/24 20:59 Not Given ACHS [facility] Protocol Melatonin 3 mg 08/19/24 16:39 Melatonin 3 Mg Tablet PO 09/18/24 20:59 HS PRN sleep Ondansetron HCl 4 mg 08/18/24 16:46 Ondansetron Inj 2 Mg/Ml Inj 2 Ml IVP 09/17/24 16:45 Q6H PRN NAUSEA OR VOMITING Protocol Sennosides 1 tab 08/19/24 09:00 08/20/24 09:13 Senna Tablet PO 09/18/24 08:59 1 tab QDAY RAFIA Administration Protocol Plan Patient is a Korean speaking 49-year-old past medical history of CVA, hyperlipidemia, resistant hypertension, CHF HFpEF 60-65% (06/11/2024) who presented to the ED on 08/18/24 for anasarca, admitted for DIANA on CKD and CHF exacerbation. # DIANA on Chronic Kidney Disease, likely cardiorenal syndrome # Intrinsic renal injury, likely ATN # Resistant Hypertension - On admission, BUN of 35, creatinine was 4.4 and EGFR of 15.? Albumin of 4.0. - Renal ultrasound (08/18/2024): Regular cortical thinning, 5 mm mid pole left renal calculus, No hydronephrosis. - FeNa 4.5% based on labs collected 08/18/24, indicating intrinsic renal injury, likely ATN secondary to cardiorenal syndrome - Renal US 08/18 - 5 mm mid pole left renal calculus, no hydronephrosis. Also noted ascites. - Rapid response on 08/19 for systolic of 228, improved after clonidine 0.2mg PO in addition to home hydralazine and clonidine, also added prn hydralazine. Gave hydroxyzine x1 for anxiety. - 08/20: Cr and BUN improving. GFR 16. Systolic pressures are still in 180-190s, will restart home nicardipine. Plan: -Continue home hydralazine and clonidine -Will resume home nicardipine today -Hydralazine prn -Avoid nephrotoxic -Renally dose medications -Strict I&O's -Nephrology consulted, appreciate recommendations #Acute decompensated heart failure exacerbation - resolved #HFpEF EF 55-60% - EKG: sinus bradycardia at a rate of 59 with left axis deviation. No T wave abnormalities. No STEMI. - CXR: Edema at the lung bases with moderate to large bilateral pleural effusions with prominent vascular congestion including central vascular engorgement. - Bilateral lower extremity venous duplex: No evidence of deep vein thrombosis bilaterally. - Past Echo (05/21/2024): EF 60-65%. Moderate to severe concentric LVH. Diastolic dysfunction stage I. - Echo 08/20 - EF 55 to 60%. Mild to moderate septal hypertophy. Grade III diastolic dysfunction of the left ventricle (restrictive filling pattern). No significant valvular heart disease. No Pericardial Effusion. Plan: -Bumex 2 mg IV BID -Hold Carvedilol given worsening CHF exacerbation -TSH and Lipid panel -Strict I&O's -K>4 and Mg >2 -Daily weights -Fluid restrictions 1800 #History Diabetes Mellitus Type 2 A1c 6.2 in 05/22/24, indicating patient is in pre-diabetic range. Previously had been on metformin but was stopped prior to discharge given CrCl. Patient was asked to follow up with PCP and nephrology for further recommendations. Patient has not followed up with nephrology. Plan -sliding scale -consider fasting glucose and A1c in AM #Anxiety Patient has been anxious about his medical condition since his CVA in July 2024. Requested to have something for anxiety as needed. -start Hydroxyzine 12.5mg PO HS Health Maintenance Disposition: Treating hypertension, DIANA improving DVT prophylaxis: subQ heparin 5000 q12hrs GI prophylaxis: not indicated Diet: renal diet CODE STATUS: Full code Patient plan of care was discussed with the attending physician, Dr. Paulson. Stephanie Isaac, PGY-1
[2024-08-20] MEDS: INSULIN LISPRO (AdmeLOG) 1 UNIT/0.01 ML UNIT SC ×2 (11:38→21:10)
[2024-08-20] MEDS: niCARdipine 20 MG CAPSULE PO ×2 (13:41→21:02)
--- NOTE | 2024-08-20 16:51 | ECHO_ITS ---
Transthoracic Echo Report Ht (in): 66 Wt (lb): 255 Exam Location: Echo Lab Status: Inpatient Reading Assistant: Karen Orellana Indications: Procedure Performed: BP: 170 / 88 HR: 72 Technical Quality: Technically Difficult Study MEASUREMENTS (Male / Female) Normal Values 2D ECHO LV Diastolic Diameter PLAX 4.3 cm 4.2 - 5.9 / 3.9 - 5.3 cm LV Systolic Diameter PLAX 3.3 cm IVS Diastolic Thickness 1.6 cm 0.6 - 1.0 / 0.6 - 0.9 cm LVPW Diastolic Thickness 1.7 cm 0.6 - 1.0 / 0.6 - 0.9 cm LV Relative Wall Thickness 0.8 LVOT Diameter 2.4 cm LA Volume Index 54.9 cm?/m? 16 - 28 cm?/m? DOPPLER AV Peak Velocity 143.0 cm/s AV Peak Gradient 8.2 mmHg LVOT Peak Velocity 132.0 cm/s LVOT Peak Gradient 7.0 mmHg AV Area Cont Eq pk 4.2 cm? MV Area PHT 3.0 cm? Mitral E Point Velocity 130.0 cm/s Mitral A Point Velocity 53.8 cm/s Mitral E to A Ratio 2.4 LV E' Lateral Velocity 6.3 cm/s Mitral E to LV E' Lateral Ratio 20.6 LV E' Septal Velocity 6.5 cm/s Mitral E to LV E' Septal Ratio 19.9 PV Peak Velocity 105.0 cm/s PV Peak Gradient 4.4 mmHg FINDINGS Left Ventricle Normal left ventricular size and systolic function with no obvious regional wall motion abnormalities. Mild to moderate septal hypertophy. Normal left ventricular diastolic filling pattern for age. The ejection fraction is visually estimated at 55 %. There is grade III diastolic dysfunction of the left ventricle (restrictive filling pattern). Right Ventricle The right ventricle not well visualized. Left Atrium The left atrial cavity size is severely increased. Right Atrium Right atrium is not well visualized. Atrial Septum The interatrial septum appears normal with no evidence of a shunt. Aorta The aorta is normal by two-dimensional, color flow and Doppler interrogation. Mitral Valve The mitral valve annulus is mildly calcified without stenosis. There is trace mitral regurgitation. Aortic Valve The aortic valve is trileaflet and normal by two-dimensional, color flow and Doppler interrogation. There is no significant aortic valve regurgitation. Tricuspid Valve The tricuspid valve is normal by two-dimensional, color flow and Doppler interrogation. There is trace tricuspid regurgitation. Pulmonic Valve The pulmonic valve is not well visualized. There is no significant pulmonic valve regurgitation. Vessels The pulmonary artery appears normal. The inferior vena cava is severely dilated without inspiratory collapse. Pericardium The pericardium is normal by two-dimensional imaging. There is no significant pericardial effusion. CONCLUSIONS Indications: Evaluate LV Function Normal size left ventricle excellent LV systolic function ejection fraction 55 to 60%. No significant valvular heart disease. No Pericardial Effusion Vianney Ramirez (Electronically Signed) Final Date: 20 August 2024 15:42
[2024-08-20] MEDS: hydrALAZINE INJ 20 MG/ML VIAL 10 MG IVP (17:55)
[2024-08-20] MEDS: FAMOTIDINE 20 MG TABLET PO (21:00)
[2024-08-21] VITALS (26 sets, daily range): BP systolic 148–192; BP diastolic 82–105; PULSE 38–67; RESP 17–99; TEMP 36.3–37.1; O2SAT 95–99; BMI 38.3
[2024-08-21] MEDS: BUMETANIDE INJ 0.25 MG/ML VIAL 4 ML 2 MG IVP ×2 (05:49→17:07)
[2024-08-21 06:03] LABS: Basophils # (Auto) 0.1 Thou/mm3 (0.0-0.2); Basophils % (Auto) 1 % (0-2.5); Eosinophils # (Auto) 0.2 Thou/mm3 (0.0-0.5); Eosinophils % (Auto) 3 % (0-10); Hematocrit 31.7 % (41.0-53.0); Hemoglobin 10.7 g/dL (13.5-16.0); Immature Granulocytes Auto 0.03 Thou/mm3 (0.00-0.00); Lymphocytes # (Auto) 1.4 Thou/mm3 (1.0-4.8); Lymphocytes % (Auto) 22 % (10-50); Mean Corpuscular HGB Conc 33.8 g/dl (31.0-37.0); Mean Corpuscular Hemoglobin 29.7 pg (25.0-35.0); Mean Corpuscular Volume 88 fL (80-100); Monocytes # (Auto) 0.7 Thou/mm3 (0.0-0.8); Monocytes % (Auto) 12 % (0-12); Neutrophils # (Auto) 3.8 Thou/mm3 (1.8-7.7); Neutrophils % (Auto) 62 % (37-80); Nucleated Red Blood Cell # 0.00 Thou/mm3 (0.00-0.00); Nucleated Red Blood Cell % 0 /100 WBC (0); Platelet Count 160 Thou/mm3 (140-440); RDW Standard Deviation 43.8 fL (35.1-43.9); Red Blood Count 3.60 Miln/mm3 (4.50-5.90); White Blood Count 6.2 Thou/mm3 (3.8-10.6)
[2024-08-21 06:39] LABS: Alanine Aminotransferase 10 U/L (10-49); Albumin, Serum 3.6 gm/dL (3.5-5.0); Albumin/Globulin Ratio 1.2 (1.2-2.2); Alkaline Phosphatase 71 U/L (46-116); Anion Gap 13 (7-16); Aspartate Amino Transferase 16 U/L (0-34); BUN/Creatinine Ratio 8 Ratio (12-20); Bilirubin,Total 0.4 mg/dL (0.3-1.2); Blood Urea Nitrogen 30 mg/dL (9-23); Calcium 8.4 mg/dL (8.3-10.6); Calcium (Corrected) 8.7 mg/dL (8.5-10.1); Carbon Dioxide 26.9 mMol/L (20.0-31.0); Chloride 104 mMol/L (98-107); Creatinine (Component) 4.0 mg/dL (0.6-1.3); Estimated Creatinine Clearance 25.5 mL/min (>60); Globulin 3.0 gm/dL (2.3-3.5); Glucose 122 mg/dL (74-106); Magnesium 2.3 mg/dL (1.6-2.6); Osmolality,Calculated 294 (275-295); Phosphorous 3.2 mg/dL (2.4-5.1); Potassium 4.0 mMol/L (3.4-5.1); Sodium 144 mMol/L (136-145); Total Protein 6.6 gm/dL (5.7-8.2); eGFR 17 See Note
[2024-08-21] MEDS: niCARdipine 20 MG CAPSULE PO ×3 (07:04→21:17)
[2024-08-21] MEDS: HEPARIN SOD INJ 5000 UNIT/ML VIAL SC ×2 (08:13→20:10)
[2024-08-21] MEDS: MINOXIDIL 2.5 MG TABLET PO ×3 (09:57→21:18)
[2024-08-21] MEDS: SODIUM BICARBONATE 650 MG TABLET PO ×3 (09:59→21:18)
[2024-08-21] MEDS: LOSARTAN POTASSIUM 25 MG TABLET 100 MG PO (09:59)
--- NOTE | 2024-08-21 12:38 | ESPR_ITS ---
<Statement entered by Jaimie Paulson MD - 08/28/24 11:43> I reviewed above note and agree with findings and plans. I have also personally examined the patient with medicine team and went over assessment and plan with medical team including dental internship and resident physician. Documentation for date of: 08/21/24 Subjective Subjective Interval history: Patient was seen and examined at bedside. A.m. vitals and labs reviewed. Patient's lower extremity edema improved significantly. I/O balance was -3330 mL. Patient has lost 7 kg yesterday. He started on his 3 home blood pressure medications: hydralazine, nicardipine, and Coreg. He had an episode of heart rate dropping as low as 38, but currently maintaining HR in 50s as a baseline. Given patient's persistent hypertension, type 2 diabetes, HFpEF 60 to 65% and DIANA, possibility of placing patient in hemodialysis in order to prevent further episodes has been discussed. Patient feels much better overall. Denies chest pain, shortness of breath, and headache. Exam Vital Signs Temp Pulse Resp BP Pulse Ox O2 Del Method 97.4 F 54 L 18 186/103 H 97 Room Air 08/21/24 08:00 08/21/24 12:11 08/21/24 08:00 08/21/24 09:59 08/21/24 08:00 08/21/24 08:00 Narrative Exam General: Awake and in no acute distress. Conversational and non-toxic appearing. HEENT: Normocephalic, atraumatic, mucous membranes moist. Heart: Regular rate and rhythm, normal S1 and S2, no murmurs. Lungs: Clear to auscultation with no wheezing or crackles. Abdomen: Soft, nondistended, nontender, positive bowel sounds. No guarding or rebound tenderness. Neurologic: Alert and oriented x3, no gross neurological deficit, and patient able to move all 4 extremities. Numbness in legs bilaterally. Extremities: 2+ pitting lower extremity edema bilaterally. Skin: No rash or ecchymoses. Objective Labs 08/22/24 04:34 08/22/24 04:34 Labs: Laboratory Results - last 24 hr 08/21/24 05:15 WBC 6.2 RBC 3.60 L Hgb 10.7 L Hct 31.7 L MCV 88 MCH 29.7 MCHC 33.8 RDW Std Deviation 43.8 Plt Count 160 Neut % (Auto) 62 Lymph % (Auto) 22 [place] % (Auto) 12 Eos % (Auto) 3 Baso % (Auto) 1 Neut # (Auto) 3.8 Lymph # (Auto) 1.4 [place] # (Auto) 0.7 Eos # (Auto) 0.2 Baso # (Auto) 0.1 Immature Gran # (Auto) 0.03 H Absolute Nucleated RBC 0.00 Immature Gran % 1 H Nucleated RBC % 0 Sodium 144 Potassium 4.0 Chloride 104 Carbon Dioxide 26.9 Anion Gap 13 BUN 30 H Creatinine 4.0 H Estim Creat Clear Calc 25.5 L eGFR 17 L BUN/Creatinine Ratio 8 L Glucose 122 H Calculated Osmolality 294 Calcium 8.4 Corrected Calcium 8.7 Phosphorus 3.2 Magnesium 2.3 Total Bilirubin 0.4 AST 16 ALT 10 Alkaline Phosphatase 71 Total Protein 6.6 Albumin 3.6 Globulin 3.0 Albumin/Globulin Ratio 1.2 Quality Measures Quality Measures none Assessment & Plan Assessment Current Active Medications: Generic Name Dose Route Start Last Admin Trade Name Freq PRN Reason Stop Dose Admin Acetaminophen 650 mg 08/18/24 16:46 Acetaminophen 325 Mg Tablet PO 09/17/24 16:45 Q6H PRN Mild Pain 1-3 or Fever >100.3 Bumetanide 2 mg 08/19/24 18:00 08/21/24 05:49 Bumetanide Inj 0.25 Mg/Ml Vial 4 Ml IVP 09/18/24 17:59 2 mg BIDD RAFIA Administration Carvedilol 12.5 mg 08/21/24 17:30 Carvedilol 12.5 Mg Tablet PO 09/20/24 17:29 BIDWM RAFIA Clonidine 0.2 mg 08/19/24 16:15 08/21/24 05:47 Clonidine Hcl 0.1 Mg Tablet PO 09/18/24 16:14 0.2 mg TID RAFIA Administration Minoxidil 2.5 Mg 0 ea 08/21/24 09:45 08/21/24 09:57 Tablet PO 09/20/24 09:44 1 tablet TID RAFIA Administration Dextrose 25 ml 08/18/24 17:02 Dextrose 50%-Water Inj 50 Ml Syringe IV 09/17/24 17:01 Q15MIN PRN BG 50-70 responsive npo pt Dextrose 50 ml 08/18/24 17:02 Dextrose 50%-Water Inj 50 Ml Syringe IV 09/17/24 17:01 Q15MIN PRN BG <50 OR BG <70 & pt unresponsive Famotidine 20 mg 08/18/24 21:00 08/20/24 21:00 Famotidine 20 Mg Tablet PO 09/17/24 20:59 20 mg HS RAFIA Administration Glucagon 1 mg 08/18/24 17:02 Glucagon Inj 1 Mg Vial IM Q15MIN PRN BG <70, and no IV access Heparin Sodium (Porcine) 5,000 unit 08/18/24 21:00 08/21/24 08:13 Heparin Sod Inj 5000 Unit/Ml Vial SC 09/01/24 20:59 5,000 unit Q12HR RAFIA Administration Hydralazine HCl 10 mg 08/19/24 16:09 08/20/24 17:55 Hydralazine Inj 20 Mg/Ml Vial IVP 09/17/24 18:52 10 mg Q6HR PRN Administration Hypertension Hydralazine HCl 50 mg 08/20/24 22:00 08/21/24 05:47 Hydralazine Hcl 25 Mg Tablet PO 09/19/24 21:59 50 mg TID RAFIA Administration Hydromorphone HCl 0.5 mg 08/18/24 16:46 Hydromorphone Inj 2 Mg/Ml Vial IVP 08/23/24 16:45 Q6HR PRN PAIN SCALE 4-10(Mod-Sev Hydroxyzine HCl 12.5 mg 08/20/24 21:00 08/20/24 21:01 Hydroxyzine Hcl 25 Mg Tablet PO 09/19/24 20:59 12.5 mg HS RAFIA Administration Insulin Human Lispro 0 unit 08/18/24 21:00 08/21/24 12:05 Insulin Lispro (Admelog) 1 Unit/0.01 Ml Unit SC 09/17/24 20:59 Not Given ACHS RAFIA Protocol Losartan Potassium 100 mg 08/21/24 09:00 08/21/24 09:59 Losartan Potassium 25 Mg Tablet PO 09/20/24 08:59 100 mg QDAY RAFIA Administration Melatonin 3 mg 08/19/24 16:39 Melatonin 3 Mg Tablet PO 09/18/24 20:59 HS PRN sleep Nicardipine HCl 20 mg 08/20/24 20:30 08/21/24 07:04 Nicardipine 20 Mg Capsule PO 09/19/24 20:29 20 mg TID RAFIA Administration Ondansetron HCl 4 mg 08/18/24 16:46 Ondansetron Inj 2 Mg/Ml Inj 2 Ml IVP 09/17/24 16:45 Q6H PRN NAUSEA OR VOMITING Protocol Sennosides 1 tab 08/19/24 09:00 08/21/24 08:13 Senna Tablet PO 09/18/24 08:59 1 tab QDAY RAFIA Administration Protocol Sodium Bicarbonate 650 mg 08/21/24 08:30 08/21/24 09:59 Sodium Bicarbonate 650 Mg Tablet PO 09/20/24 08:29 650 mg TID RAFIA Administration Plan Patient is a Citizen Of [place] speaking 49-year-old past medical history of CVA, hyperlipidemia, resistant hypertension, CHF HFpEF 60-65% (06/11/2024) who presented to the ED on 08/18/24 for anasarca, admitted for DIANA on CKD and CHF exacerbation. # DIANA on Chronic Kidney Disease, likely cardiorenal syndrome # Intrinsic renal injury, likely ATN # Resistant Hypertension - On admission, BUN of 35, creatinine was 4.4 and EGFR of 15.? Albumin of 4.0. - Renal ultrasound (08/18/2024): Regular cortical thinning, 5 mm mid pole left renal calculus, No hydronephrosis. - FeNa 4.5% based on labs collected 08/18/24, indicating intrinsic renal injury, likely ATN secondary to cardiorenal syndrome - Renal US 08/18 - 5 mm mid pole left renal calculus, no hydronephrosis. Also noted ascites. - Rapid response on 08/19 for systolic of 228, improved after clonidine 0.2mg PO in addition to home hydralazine and clonidine, also added prn hydralazine. Gave hydroxyzine x1 for anxiety. - 08/20: Cr and BUN improving. GFR 16. Systolic pressures are still in 180-190s, will restart home nicardipine. Plan: -Continue home hydralazine and clonidine -Will resume home nicardipine today -Hydralazine prn -Avoid nephrotoxic -Renally dose medications -Strict I&O's -Nephrology consulted, appreciate recommendations -Resumed Coreg, -Discussed about future hemodialysis to prevent anther episode. #Acute decompensated heart failure exacerbation - resolved #HFpEF EF 55-60% - EKG: sinus bradycardia at a rate of 59 with left axis deviation. No T wave abnormalities. No STEMI. - CXR: Edema at the lung bases with moderate to large bilateral pleural effusions with prominent vascular congestion including central vascular engorgement. - Bilateral lower extremity venous duplex: No evidence of deep vein thrombosis bilaterally. - Past Echo (05/21/2024): EF 60-65%. Moderate to severe concentric LVH. Diastolic dysfunction stage I. - Echo 08/20 - EF 55 to 60%. Mild to moderate septal hypertophy. Grade III diastolic dysfunction of the left ventricle (restrictive filling pattern). No significant valvular heart disease. No Pericardial Effusion. Plan: -Bumex 2 mg IV BID -TSH and Lipid panel -Strict I&O's -K>4 and Mg >2 -Daily weights -Fluid restrictions 1800 #History Diabetes Mellitus Type 2 A1c 6.2 in 05/22/24, indicating patient is in pre-diabetic range. Previously had been on metformin but was stopped prior to discharge given CrCl. Patient was asked to follow up with PCP and nephrology for further recommendations. Patient has not followed up with nephrology. Plan -sliding scale -consider fasting glucose and A1c in AM #Anxiety Patient has been anxious about his medical condition since his CVA in July 2024. Requested to have something for anxiety as needed. -start Hydroxyzine 12.5mg PO HS Health Maintenance Disposition: Treating hypertension, DIANA improving DVT prophylaxis: subQ heparin 5000 q12hrs GI prophylaxis: not indicated Diet: renal diet CODE STATUS: Full code Assessment and plan discussed with my attending physician Dr. Khurram Ruano (PGY-1)- Internal medicine resident
[2024-08-21] MEDS: INSULIN LISPRO (AdmeLOG) 1 UNIT/0.01 ML UNIT SC ×2 (17:07→20:11)
[2024-08-21] MEDS: FAMOTIDINE 20 MG TABLET PO (20:08)
[2024-08-21] MEDS: hydrALAZINE INJ 20 MG/ML VIAL 10 MG IVP (22:17)
[2024-08-22] VITALS (12 sets, daily range): BP systolic 149–159; BP diastolic 78–91; PULSE 57–74; RESP 12–98; TEMP 36.4–36.9; O2SAT 95–98; BMI 38.5
[2024-08-22] MEDS: SODIUM BICARBONATE 650 MG TABLET PO (05:23)
[2024-08-22] MEDS: MINOXIDIL 2.5 MG TABLET PO (05:23)
[2024-08-22] MEDS: niCARdipine 20 MG CAPSULE PO (05:23)
[2024-08-22] MEDS: BUMETANIDE INJ 0.25 MG/ML VIAL 4 ML 2 MG IVP (05:25)
[2024-08-22 05:47] LABS: Basophils # (Auto) 0.1 Thou/mm3 (0.0-0.2); Basophils % (Auto) 1 % (0-2.5); Eosinophils # (Auto) 0.3 Thou/mm3 (0.0-0.5); Eosinophils % (Auto) 5 % (0-10); Hematocrit 33.4 % (41.0-53.0); Hemoglobin 11.1 g/dL (13.5-16.0); Immature Granulocytes Auto 0.02 Thou/mm3 (0.00-0.00); Lymphocytes # (Auto) 1.9 Thou/mm3 (1.0-4.8); Lymphocytes % (Auto) 30 % (10-50); Mean Corpuscular HGB Conc 33.2 g/dl (31.0-37.0); Mean Corpuscular Hemoglobin 29.9 pg (25.0-35.0); Mean Corpuscular Volume 90 fL (80-100); Monocytes # (Auto) 0.9 Thou/mm3 (0.0-0.8); Monocytes % (Auto) 13 % (0-12); Neutrophils # (Auto) 3.3 Thou/mm3 (1.8-7.7); Neutrophils % (Auto) 51 % (37-80); Nucleated Red Blood Cell # 0.00 Thou/mm3 (0.00-0.00); Nucleated Red Blood Cell % 0 /100 WBC (0); Platelet Count 179 Thou/mm3 (140-440); RDW Standard Deviation 44.2 fL (35.1-43.9); Red Blood Count 3.71 Miln/mm3 (4.50-5.90); White Blood Count 6.4 Thou/mm3 (3.8-10.6)
[2024-08-22 06:29] LABS: Alanine Aminotransferase 19 U/L (10-49); Albumin, Serum 3.7 gm/dL (3.5-5.0); Albumin/Globulin Ratio 1.2 (1.2-2.2); Alkaline Phosphatase 72 U/L (46-116); Anion Gap 9 (7-16); Aspartate Amino Transferase 26 U/L (0-34); BUN/Creatinine Ratio 8 Ratio (12-20); Bilirubin,Total 0.4 mg/dL (0.3-1.2); Blood Urea Nitrogen 29 mg/dL (9-23); Calcium 8.7 mg/dL (8.3-10.6); Calcium (Corrected) 8.9 mg/dL (8.5-10.1); Carbon Dioxide 27.6 mMol/L (20.0-31.0); Chloride 105 mMol/L (98-107); Creatinine (Component) 3.8 mg/dL (0.6-1.3); Estimated Creatinine Clearance 26.8 mL/min (>60); Globulin 3.1 gm/dL (2.3-3.5); Glucose 113 mg/dL (74-106); Magnesium 2.3 mg/dL (1.6-2.6); Osmolality,Calculated 289 (275-295); Phosphorous 2.9 mg/dL (2.4-5.1); Potassium 3.8 mMol/L (3.4-5.1); Sodium 142 mMol/L (136-145); Total Protein 6.8 gm/dL (5.7-8.2); eGFR 18 See Note
[2024-08-22] MEDS: HEPARIN SOD INJ 5000 UNIT/ML VIAL SC (08:22)
[2024-08-22] MEDS: LOSARTAN POTASSIUM 25 MG TABLET 100 MG PO (08:22)
--- NOTE | 2024-08-22 10:07 | ESPR_ITS ---
Documentation for date of: 08/22/24 Subjective Subjective Interval history: Pt is seen and examined no new complaints Exam Vital Signs Temp Pulse Resp BP Pulse Ox O2 Del Method 97.9 F 67 12 158/81 H 95 Room Air 08/22/24 07:51 08/22/24 08:23 08/22/24 08:13 08/22/24 08:23 08/22/24 07:51 08/22/24 07:51 Narrative Exam Heart s1, s2 chest CTA ext plus 2 edema Objective Labs 08/22/24 04:34 08/22/24 04:34 Labs: Laboratory Results - last 24 hr 08/22/24 04:34 WBC 6.4 RBC 3.71 L Hgb 11.1 L Hct 33.4 L MCV 90 MCH 29.9 MCHC 33.2 RDW Std Deviation 44.2 H Plt Count 179 Neut % (Auto) 51 Lymph % (Auto) 30 [place] % (Auto) 13 H Eos % (Auto) 5 Baso % (Auto) 1 Neut # (Auto) 3.3 Lymph # (Auto) 1.9 [place] # (Auto) 0.9 H Eos # (Auto) 0.3 Baso # (Auto) 0.1 Immature Gran # (Auto) 0.02 H Absolute Nucleated RBC 0.00 Immature Gran % 0 Nucleated RBC % 0 Sodium 142 Potassium 3.8 Chloride 105 Carbon Dioxide 27.6 Anion Gap 9 BUN 29 H Creatinine 3.8 H Estim Creat Clear Calc 26.8 L eGFR 18 L BUN/Creatinine Ratio 8 L Glucose 113 H Calculated Osmolality 289 Calcium 8.7 Corrected Calcium 8.9 Phosphorus 2.9 Magnesium 2.3 Total Bilirubin 0.4 AST 26 ALT 19 Alkaline Phosphatase 72 Total Protein 6.8 Albumin 3.7 Globulin 3.1 Albumin/Globulin Ratio 1.2 Assessment & Plan Assessment and plan (1) Anasarca: Status: Acute Assessment and plan: improving c/w diuresis (2) Acute renal failure: Status: Acute Additional Assessment & Plan Additional Plan: Creat is slowly improving will monitor
--- NOTE | 2024-08-22 14:19 | ESDS_ITS ---
<Statement entered by Jaimie Paulson MD - 08/28/24 11:43> I reviewed above note and agree with findings and plans. I have also personally examined the patient with medicine team and went over assessment and plan with medical team including international tax manager and resident physician. Planned Discharge Date 08/22/24 DS: Providers Provider Date of admission: 08/18/24 16:46 Primary care physician: Ambrose Escobar MD Admitting Provider: Layo Ridley DO Attending Provider on Admission: Jaimie Paulson MD Attending Provider on DC: RESIDENT Amandeep Discharging Provider: RESIDENT Amandeep DS: Diagnosis Problem List Completed Was Problem List Reviewed/Reconciled?: Yes Hospital Course Hospital Course Hospital course: Patient is a Swazi speaking 49-year-old past medical history of CVA, hyperlipidemia, resistant hypertension, CHF HFpEF 60-65% (06/11/2024) who presented to the ED on 08/18/24 for anasarca, admitted for DIANA on CKD and CHF exacerbation. Received several antihypertensive and diuretic medications. After discharge he will follow outpatient nephrology with likely of needing hemodialysis in the future. Hospital Course: Patient was admitted on 08/18/2024 for DIANA on CKD and CHF exacerbation.On admission, BUN was 35, creatinine 4.4 and EGFR of 15, albumin of 4.0. FeNa 4.5% based on labs collected 08/18/24, indicating intrinsic renal injury, likely ATN secondary to cardiorenal syndrome. There was an episode of rapid response on 08/19 for systolic of 228, improved after clonidine 0.2mg PO in addition to home hydralazine and clonidine, also added prn hydralazine. Gave hydroxyzine x1 for anxiety. On 08/20, Cr and BUN was improving, but GFR was 16 and systolic pressures was still in 180-190s. Restart home nicardipine and BP ranged 150s/110s before discharge For acute CHF, at the time of admission chest x-ray showed edema at the lung bases with moderate to large bilateral pleural effusions. Echo 08/20 showed EF 55 to 60%. Mild to moderate septal hypertophy. Grade III diastolic dysfunction of the left ventricle. Patient was given Bumex 2 mg IV bid before discharge. Patient will follow-up with outpatient nephrology with likelihood of needing hemodialysis in the future. Instuctions: You have been started on new medication Jardiance, for management of diabetes mellitus in the presence of kidney disease. Started diuretic/water pill Bumex to be taken 1 mg once daily for swelling and fluid overload. Recommend drinking no more than 1500 mL of fluids in a day. Please limit your salt and water intake. recommend strict compliance with your blood pressure medications including carvedilol 12.5 mg twice daily, clonidine 0.2 mg 3 times daily, hydralazine 50 mg 3 times daily, losartan 100 mg once daily, minoxidil 2.5 mg 3 times daily, nicardipine 20 mg 3 times daily. Please see your telephone surveyor Dr Moreno for resistant hypertension within 1 week of discharge from hospital. In case of worsening symptoms, like worsening shortness of breath, lower extremity swelling, chest pain or discomfort, or any other symptoms return to the emergency room. # DIANA on Chronic Kidney Disease, likely cardiorenal syndrome # Intrinsic renal injury, likely ATN # Resistant Hypertension #Acute decompensated heart failure exacerbation - resolved #HFpEF EF 55-60% #History Diabetes Mellitus Type 2 #Anxiety Safe to discharge to Home Assessment and plan discussed with my attending physician Dr. Khurram Ruano (PGY-1)- Internal medicine resident Time Spent with Patient Time attestation: Total time spent providing and/or coordinating discharge services: Time spent: Greater than 30 minutes Exam Vital Signs Temp Pulse Resp BP Pulse Ox O2 Del Method 97.6 F 67 17 154/78 H 98 Room Air 08/22/24 12:08/22/24 12:08/22/24 12:08/22/24 12:08/22/24 12:08/22/24 12:00 Narrative Exam General: Awake and in no acute distress. Conversational and non-toxic appearing. HEENT: Normocephalic, atraumatic, mucous membranes moist. Heart: Regular rate and rhythm, normal S1 and S2, no murmurs. Lungs: Clear to auscultation with no wheezing or crackles. Abdomen: Soft, nondistended, nontender, positive bowel sounds. No guarding or rebound tenderness. Neurologic: Alert and oriented x3, no gross neurological deficit, and patient able to move all 4 extremities. Numbness in legs bilaterally. Extremities: 2+ pitting lower extremity edema bilaterally. Skin: No rash or ecchymoses. Discharge Plan Plan Patient Disposition: HOME (Self Care) Care Plan Goals: Se le mary iniciado el tratamiento con Jardiance, un nuevo medicamento para la diabetes mellitus en presencia de enfermedad renal. Se le mary iniciado el tratamiento con el diur?adriano Bumex, que debe tomarse 1 mg luz maria vez al d?a para la hinchaz?n y la sobrecarga de l?quidos. Se recomienda no beber m?s de 1500 ml de l?quidos al d?a. Limite simms consumo de kae y agua. Se recomienda un estricto cumplimiento de sami medicamentos para la presi?n arterial, incluyendo carvedilol 12,5 mg dos veces al d?a, clonidina 0,2 mg 3 veces al d?a, hidralazina 50 mg 3 veces al d?a, losart?n 100 mg luz maria vez al d?a, minoxidil 2,5 mg 3 veces al d?a y nicardipino 20 mg 3 veces al d?a. Consulte con simms nefr?logo, el Dr. Moreno, para la hipertensi?n resistente dentro de la semana posterior al [facility] hospital[facility]. En anthony de empeoramiento de los s?ntomas, kimberley dificultad para respirar, hinchaz?n de las extremidades inferiores, dolor o malestar en el pecho, o cualquier otro s?ntoma, acuda a urgencias. You have been started on new medication Jardiance, for management of diabetes mellitus in the presence of kidney disease. Started diuretic/water pill Bumex to be taken 1 mg once daily for swelling and fluid overload. Recommend drinking no more than 1500 mL of fluids in a day. Please limit your salt and water intake. recommend strict compliance with your blood pressure medications including carvedilol 12.5 mg twice daily, clonidine 0.2 mg 3 times daily, hydralazine 50 mg 3 times daily, losartan 100 mg once daily, minoxidil 2.5 mg 3 times daily, nicardipine 20 mg 3 times daily. Please see your telephone surveyor Dr Moreno for resistant hypertension within 1 week of discharge from hospital. In case of worsening symptoms, like worsening shortness of breath, lower extremity swelling, chest pain or discomfort, or any other symptoms return to the emergency room. Prescriptions/Referrals Prescriptions/Med Rec: New Jardiance 10 mg tablet 10 mg PO QDAY Qty: 30 0RF bumetanide 1 mg tablet 1 mg PO QDAY Qty: 30 0RF Continued carvedilol 12.5 mg tablet 12.5 mg PO BID 30 Days Qty: 14 0RF Rx Instructions: must administer with a meal/food nicardipine 20 mg capsule 20 mg PO TID 30 Days Qty: 14 0RF minoxidil 2.5 mg tablet 2.5 mg PO TID 30 Days Qty: 90 0RF clonidine HCl 0.2 mg tablet 0.2 mg PO TID 30 Days Qty: 90 0RF sodium bicarbonate 650 mg tablet 650 mg PO TID 30 Days Qty: 90 0RF Nephro-Ariana 0.8 mg tablet 1 tab PO Q24H 30 Days Qty: 30 0RF hydralazine 50 mg tablet 50 mg PO TID 30 Days Qty: 90 0RF losartan 100 mg tablet 100 mg PO QDAY 30 Days Qty: 14 0RF Referrals: Ambrose Escobar MD [Primary Care Provider] - Patient/Caregiver Discharge Instructions Education Materials: Diabetes and Kidney Disease, Diabetic Retinopathy Print Language: Swazi Stand Alone Forms: Sylwia Award Info., Patient Portal Info Letter Discharge Order Discharge Orders: Discharge (Routine); Ordered 08/22/24 Ordered By: Gayle Morelos Quality Discharge Quality Measures VTE prophylaxis
== END 2024-08-22 12:48 | disposition home or self-care (01) | DRG 194 ==
LOC: SERX 17:10 → SERHOLD 17:12 → S3NX 22:34
PROVIDERS: Nurse Practitioner Family; Admitting Provider Student in an Organized Health Care Education/Training Program; Emergency Provider Emergency Medicine; PCP Family Medicine; Visit Provider Internal Medicine
DX: I13.0 Hypertensive heart and chronic kidney disease with heart failure and stage 1 through stage 4 chronic kidney disease, or unspecified chronic kidney disease (principal); N17.9 Acute kidney failure, unspecified; N18.4 Chronic kidney disease, stage 4 (severe); I50.33 Acute on chronic diastolic (congestive) heart failure; E78.5 Hyperlipidemia, unspecified; E11.22 Type 2 diabetes mellitus with diabetic chronic kidney disease; I25.10 Atherosclerotic heart disease of native coronary artery without angina pectoris; I25.2 Old myocardial infarction; Z86.73 Personal history of transient ischemic attack (TIA), and cerebral infarction without residual deficits; F41.9 Anxiety disorder, unspecified; I1A.0 Resistant hypertension; N20.0 Calculus of kidney; R18.8 Other ascites; Z91.199 Patient's noncompliance with other medical treatment and regimen due to unspecified reason; Z99.2 Dependence on renal dialysis; Z79.899 Other long term (current) drug therapy
CPT/HCPCS: 36415; 71045; 71046; 74176; 76770; 80053; 80061; 80307; 81001; 82436; 82570; 83690; 83735; 83880; 84100; 84133; 84156; 84300; 84443; 84484; 85025; 85610; 85730; 87811; 93005; 93225; 93306; 93970; 96372; 96374; 99285; J0360; J1644; J1815; J3490; A9270; J1920

== ENCOUNTER → 2024-10-12 | Outpatient (CLI) | payer MEDICAID, SELFPAY ==
[2024-10-12 09:10] LABS: Misc Send Out* See Sep Rpt
[2024-10-12 09:38] LABS: Basophils # (Auto) 0.1 Thou/mm3 (0.0-0.2); Basophils % (Auto) 1 % (0-2.5); Eosinophils # (Auto) 0.2 Thou/mm3 (0.0-0.5); Eosinophils % (Auto) 3 % (0-10); Hematocrit 33.1 % (41.0-53.0); Hemoglobin 11.4 g/dL (13.5-16.0); Immature Granulocytes Auto 0.02 Thou/mm3 (0.00-0.00); Lymphocytes # (Auto) 1.5 Thou/mm3 (1.0-4.8); Lymphocytes % (Auto) 21 % (10-50); Mean Corpuscular HGB Conc 34.4 g/dl (31.0-37.0); Mean Corpuscular Hemoglobin 30.1 pg (25.0-35.0); Mean Corpuscular Volume 87 fL (80-100); Monocytes # (Auto) 0.7 Thou/mm3 (0.0-0.8); Monocytes % (Auto) 9 % (0-12); Neutrophils # (Auto) 4.7 Thou/mm3 (1.8-7.7); Neutrophils % (Auto) 66 % (37-80); Nucleated Red Blood Cell # 0.00 Thou/mm3 (0.00-0.00); Nucleated Red Blood Cell % 0 /100 WBC (0); Platelet Count 145 Thou/mm3 (140-440); RDW Standard Deviation 47.2 fL (35.1-43.9); Red Blood Count 3.79 Miln/mm3 (4.50-5.90); White Blood Count 7.1 Thou/mm3 (3.8-10.6)
[2024-10-12 09:49] LABS: Glucose Estimated Average 123 mg/dL (80-131); Hemoglobin A1C 5.9 % Hgb (4.8-6.0)
[2024-10-12 09:50] LABS: Collection Type, Urine Clean Catch; Squamous Epithelial Cell,Urine 0 /hpf (0-5)
[2024-10-12 09:54] LABS: Parathyroid Hormone Intact 213.1 pg/ml (18.5-88.0)
[2024-10-12 10:04] LABS: Albumin, Serum 4.0 gm/dL (3.5-5.0); Anion Gap 9 (7-16); BUN/Creatinine Ratio 10 Ratio (12-20); Blood Urea Nitrogen 35 mg/dL (9-23); Calcium 9.4 mg/dL (8.3-10.6); Calcium (Corrected) 9.4 mg/dL (8.5-10.1); Carbon Dioxide 28.2 mMol/L (20.0-31.0); Chloride 105 mMol/L (98-107); Creatinine (Component) 3.6 mg/dL (0.6-1.3); Glucose 103 mg/dL (74-106); Osmolality,Calculated 291 (275-295); Phosphorous 4.5 mg/dL (2.4-5.1); Potassium 4.0 mMol/L (3.4-5.1); Sodium 142 mMol/L (136-145); eGFR 20 See Note
[2024-10-12 10:36] LABS: Bilirubin,Urine Negative (Negative); Blood,Urine Negative (Negative); Clarity,Urine Clear (Clear/Hazy); Color,Urine Lt-Yellow (Lt Yel-Yel); Creatinine,Random Urine 74 mg/dL (30-125); Glucose, Urine 4+ (Negative); Ketones,Urine Negative (Negative); Leukocyte Esterase,Urine Negative (Negative); Nitrite,Urine Negative (Negative); PH,Urine 7.5 (5.0-7.0); Protein Total, Random Urine 124 mg/dL (1-14); Protein,Urine 2+ (Neg - Trace); RBC,Urine 3 /hpf (0-3); Specific Gravity,Urine 1.013 (1.001-1.035); Urobilinogen,Urine Negative mg/dL (0.0-1.0); WBC,Urine 1 /hpf (0-5)
[2024-10-19 07:04] LABS: Renin Activity, Plasma* 0.32 ng/mL/h (0.25-5.82)
[2024-10-19 07:07] LABS: Aldosterone* 6 ng/dL
== END | disposition home or self-care (01) ==
PROVIDERS: PCP Internal Medicine; Referring Provider Internal Medicine; Visit Provider Internal Medicine
DX: I12.9 Hypertensive chronic kidney disease with stage 1 through stage 4 chronic kidney disease, or unspecified chronic kidney disease (principal); E11.22 Type 2 diabetes mellitus with diabetic chronic kidney disease; N18.4 Chronic kidney disease, stage 4 (severe); E78.5 Hyperlipidemia, unspecified
CPT/HCPCS: 36415; 80069; 81001; 82088; 82570; 83036; 83970; 84156; 84244; 85025